=== PATIENT | male | born 1990 | race Native Hawaiian/Other Pacific Islander ===

== ENCOUNTER 2023-06-28 11:08 | Inpatient (IN) ==
[2023-06-28] MEDS ORDERED: ONDANSETRON INJ 2 MG/ML 2 ML VIAL IV STA (11:29)
[2023-06-28] MEDS ORDERED: CALCIUM GLUCONATE 10% 1,000 MG in NS X1 BAG IV STA (11:37)
[2023-06-28] MEDS ORDERED: DEXTROSE 50% 50 ML SYRINGE IV STA (11:39)
[2023-06-28] MEDS ORDERED: NovoLIN-R INSULIN PER UNIT CHARGE IV STA (11:39)
[2023-06-28] MEDS ORDERED: SODIUM BICARB 8.4% INJ 50 MEQ/50 ML SYR IV STA (11:40)
[2023-06-28 11:45] LABS: iSTAT Creatinine 15.8 mg/dl (0.6-1.3); iSTAT Hemoglobin 15.3 g/dl (14.0-18.0); iSTAT Ionized Calcium 1.09 mmol/l (1.12-1.32); iSTAT Potassium 6.3 mmol/L (3.3-5.0)
[2023-06-28] MEDS: SODIUM CHLORIDE 0.9% 1,000 ML IV SCH ×2 (11:59→12:27)
[2023-06-28 12:00] LABS: Basophils # (auto) 0.08 K/uL (0.00-0.20); Basophils % (auto) 0.6 %; Eosinophils # (auto) 0.15 K/uL (0.00-0.50); Eosinophils % (auto) 1.1 %; Hematocrit (blood only) 39.7 % (42.0-52.0); Hemoglobin 13.2 g/dl (14.0-18.0); Immature Granulocytes % (auto) 0.7 %; Lymphocytes # (auto) 1.97 K/uL (1.20-3.40); Lymphocytes % (auto) 13.9 %; Mean Corpuscular Hemoglobin 27.4 pg (25.0-34.0); Mean Corpuscular Hgb Conc 33.2 g/dL (32.0-36.0); Mean Corpuscular Volume 82.4 fL (80.0-100.0); Mean Platelet Volume 10.4 fL (9.4-12.4); Monocytes # (auto) 1.79 K/uL (0.11-0.59); Monocytes % (auto) 12.6 %; Neutrophils # (auto) 10.08 K/uL (1.40-6.50); Neutrophils % (auto) 71.1 %; Platelet Count 424 K/uL (130-400); RDW Coefficient of Variation 15.5 % (11.5-14.5); Red Blood Count 4.82 M/uL (4.70-6.10); White Blood Count 14.17 K/ul (4.8-10.8)
--- NOTE | 2023-06-28 12:06 | Electrocardiogram Report ---
Test Reason : Blood Pressure : / mmHG Vent. Rate : 097 BPM Atrial Rate : 097 BPM P-R Int : 154 ms QRS Dur : 090 ms QT Int : 376 ms P-R-T Axes : 035 038 064 degrees QTc Int : 477 ms Normal sinus rhythm Normal ECG When compared with ECG of 22-JUN-2022 17:15, No significant change was found Confirmed by Casper Live ([id number]) on 06/28/2023 12:06:22 PM Referred By: Confirmed By:Dima Live
[2023-06-28] MEDS ORDERED: fentaNYL citrate PF 100 MCG/2 ML VIAL ONE (12:18)
[2023-06-28] MEDS ORDERED: fentaNYL citrate PF 100 MCG/2 ML VIAL IV STA ×2 (12:20→12:34)
[2023-06-28 12:24] LABS: Albumin Globulin Ratio 0.6 (0.9-2); Albumin Level 3.5 gm/dl (3.4-5.0); BUN Creatinine Ratio 6.5 (10-20); Bilirubin,Total 1.3 mg/dl (0.2-1.0); Calcium 9.4 mg/dl (8.6-10.3); Creatinine Clr Calc Pharmacy 8.5 ml/min; Est GFR (African American) 5.1 ml/min; Est GFR (Non-African American) 4.4 ml/min; Magnesium 3.2 mg/dl (1.7-2.4); Potassium 6.2 mmol/L (3.5-5.1); Total Protein 9.5 gm/dl (6.0-8.3); Troponin I High Sensitivity 6.6 pg/ml (0-20)
[2023-06-28] MEDS ORDERED: SODIUM CHLORIDE 0.9% 1,000 ML IV SCH (12:30)
[2023-06-28 12:33] LABS: Thyroid Stimulating Hormone 1.642 uIu/ml (0.300-4.500)
[2023-06-28 12:42] LABS: INR 1.1 (0.9-1.1); Prothrombin Time 11.8 Seconds (9.0-12.0)
[2023-06-28] MEDS ORDERED: LACTATED RINGER'S 1,000 ML IV ONE (12:52)
[2023-06-28 13:19] LABS: Appearance Urine Cloudy (Clear); Bacteria Urine Automated Negative (Negative); Blood Urine Negative (Negative); Color Urine Dark Yellow; Glucose Urine UA Trace (Negative); Ketones Urine Trace (Negative); Leukocyte Esterase Urine 1+ (Negative); Nitrite Urine Positive (Negative); Protein Urine 1+ (Negative); Urobilinogen Urine Negative (Negative)
[2023-06-28 13:20] LABS: Bilirubin Urine 1+ (Negative)
[2023-06-28] MEDS ORDERED: PIPERACILLIN/TAZOBACTAM 4.5 GM/100 ML BAG IV STA (13:22)
[2023-06-28] MEDS ORDERED: DAPTOmycin 475 MG in SYRINGE 0 ML IV STA (13:23)
--- NOTE | 2023-06-28 13:47 | XRay Report ---
XR chest 1V portable HISTORY: weakness COMPARISON: Chest 04/07/2023. FINDINGS: No pneumothorax. No pleural effusions. A few small bibasilar linear densities which favor s ubsegmental atelectasis or scarring. Otherwise, the lungs are clear. The heart is normal in size. No evidence for pulmonary edema. IMPRESSION: No acute process. ACT 112: Negative or not required by law. Electronically signed by: Derek Solomon M.D. 06/28/2023 1:46 PM
--- NOTE | 2023-06-28 14:05 | Emergency Department Note ---
Impression & Plan Acute kidney failure, Crohn's disease, Enterocutaneous fistula, Acute dehydration, Hypovolemia with active loss of fluid ED Provider Note CHIEF COMPLAINT: Weakness, "not right mentally." HISTORY OF PRESENT ILLNESS: This 32-year-old male patient with an extensive past medical history including Crohn's disease, alcohol abuse, status post colectomy with an ostomy, enterocutaneous fistula, recent perforated gastric ulcer and prolonged stay subsequently in the SICU at [facility] with postoperative complication including intra-abdominal abscesses, presents to the emergency department with complaints of weakness and "not right mentally." The patient states he has not been urinating for the last 24 hours. He has had a decreased oral intake of fluids. He is on Suboxone daily and denies any other pain medications. Patient states he has follow-up appointments at [facility] tomorrow with the surgical team. Patient denies any syncopal episodes, vomiting and fever. He also states he is unable to give a detailed history due to the current "situation." REVIEW OF SYSTEMS: A review of systems was performed with positives and pertinent negatives listed in the history of present illness. 10 systems were reviewed and are otherwise negative. ALLERGIES: see below MEDICATIONS: see below PMH: see below SOCIAL HISTORY: see below DDx: Sepsis, intra-abdominal perforation, intra-abdominal abscess, bowel infarction, acute kidney injury, electrolyte abnormality, UTI among others. PHYSICAL EXAM: Vital signs reviewed. Noted to be markedly hypotensive with normal heart rate. General: Chronically ill-appearing 32-year-old male, in no significant distress. HEENT: No scleral icterus, PERRLA, neck supple. Moist mucous membranes Cardiovascular: Regular rate and rhythm, no extra sounds. Pulmonary: Clear to auscultation bilaterally, normal work of breathing. Abdomen: Soft, large mid abdominal wound draining to ostomy bag, separate ileostomy. Musculoskeletal: Atraumatic, no peripheral edema. Generalized atrophy of the bilateral lower extremities. Neurologic: Patient awake alert and oriented x 3, speech is clear. Skin: Warm, dry, no rash EXTERNAL medical records reviewed: Most recent discharge summary from [facility], ED visits dated 04/08 and 05/29/2023. EMERGENCY DEPARTMENT COURSE/MDM: This patient was evaluated and appeared to be critically ill, but in no distress. Patient is a large wound in the anterior abdomen with surrounding ostomy bag and separate ileostomy. Patient was awake and speaking clearly, asking for pain medications. We did explain that until his blood pressure improves we cannot offer pain medications. A right-sided EJ was established by myself for blood work and IV access as his peripheral veins are very difficult to access. IV access was obtained and IV fluids were initiated with good response for the blood pressure. I-STAT labs were obtained and the patient is noted to be hyperkalemic at 6.1, and acute renal failure with a creatinine of 15 on POC, hyponatremic at 110. The initial order of 2 L of normal saline solution was canceled after 1 L was administered. Nurses were advised to switch to lactated Ringer's for the second liter and maintenance fluids. A right femoral triple-lumen line was placed by myself, please see procedure note below. Patient's chest x-ray is fairly reassuring. EKG reveals a sinus rhythm at 97 bpm. I did speak with medical triage physician at [facility] who requested CT imaging of the abdomen and pelvis, but otherwise felt the patient could be managed at [facility]. The entry level marketing representative, Dr. Dave was consulted. Due to the patient's acute kidney injury, this was performed without contrast. It does not appear to be any acute surgical issue at this time with the exception of endoscopic stent migration. Records from [facility] were obtained and reviewed. After discussion between Dr. Dave and [facility], patient was admitted to our ICU at [facility]. PROCEDURE: Central Venous Catheter Indication: Hypotension Catheter type: Triple-lumen Location: Right femoral vein Verbal consent was obtained after the risks and benefits were explained, including but not limited to pneumothorax, hemothorax, vessel injury, bleeding, scarring, infection, pain, and bone/joint/nerve damage. At this time, the risks of the procedure are less than the risks of NOT performing the procedure. A time out was taken and the correct patient and site identified. The patient was placed in the supine position and the skin was prepped in the standard fashion with chlorhexidine and full sterile drapes applied. The proper landmarks were identified with ultrasound, anesthetized with 1% lidocaine without epinephrine, and the needle was inserted through the skin in the standard fashion. The needle was carefully advanced into blood vessel lumen under ultrasound guidance. The guidewire was placed uneventfully. The vessel is dilated and the catheter was placed. It was sutured into position. There was good blood return from all ports. The patient tolerated the procedure well and there were no complications. MONITORING: An order for cardiac monitoring was placed and the patient is noted to be in a normal sinus rhythm at 98 beats per minute. RADIOLOGY: Chest x-ray to my interpretation reveals no evidence of acute congestive heart failure or focal lung consolidation. Otherwise defer to radiology CT imaging of the abdomen pelvis per radiology: IMPRESSION: 1. Status post proctocolectomy with left lower quadrant ileostomy. No evidence for a bowel obstruction. Open wound with enterocutaneous fistula, as described above. 2. Endoscopic stent within the right mid abdomen, likely within the distal jejunum or proximal ileum. This raises the possibility of stent migration. Correlation with stent placement is recommended. 3. 4.5 x 1.1 cm lobulated perigastric density at site of free air on prior CT. This may reflect a tiny residual collection or scar. No drainable fluid collections. 4. Cholelithiasis. 5. Punctate left renal calculi. No ureteral calculi. No hydronephrosis. 6. Mildly enlarged abdominal lymph nodes, as described above. These are probably reactive but can be assessed on follow-up exams to ensure resolution. EKG: To my interpretation reveals normal sinus rhythm at 97 bpm. QTc of 477. Normal ST segments. No PVC, no PAC. DISPOSITION: Admission I have personally spent 60 minutes of critical care time in the direct management of this patient. This was a life/limb threatening event. This 60 minutes is in excess of all separately billable procedures. Past Med/Surg History Medical History Narcotic abuse Tobacco use Alcohol abuse Acute anxiety Depression Arthritis Crohn disease Surgical History History of wisdom tooth extraction History of knee surgery Bilateral knee scopes History of hernia surgery History of colon surgery Family History Other Diabetes Social History Smoking Status: Current every day smoker Tobacco Type: Cigarettes Cigarettes Per Day: 1/2 pack of cigarettes; Second Hand Exposure: Yes; Do You Dip or Chew Tobacco: No; Hx Alcohol Use: No Hx Substance Use: Yes Prescribed Medications: Former Misuse of Rx Meds Non- Prescribed Medications: Marijuana Last Used Substance Other:: 06/28/2023 Substance Use Type Other:: suboxone Preferred Language: Mongolian Communication Ability: Effective Sprayer Operator Required: No Beliefs That Will Affect Care: None Current Living Situation: Significant Other Other Information That Helps Us Care for You: No Feels Safe at Home: Yes Safety Concerns: Feels Safe At This Time Assistive Devices: Walker and Wheelchair Allergies Allergies Allergy/AdvReac Type Severity Reaction Status Date / Time Fish Containing Products Allergy Verified 06/29/23 09:35 fish derived Allergy Verified 06/29/23 09:35 fish oil Allergy Verified 06/29/23 09:35 shellfish derived Allergy Verified 06/29/23 09:35 adalimumab [From Humira] AdvReac Severe CONVULSIONS Verified 06/28/23 15:26 infliximab [From Remicade] AdvReac Severe CONVULSIONS Verified 06/28/23 15:26 methotrexate AdvReac Severe CONVULSIONS Verified 06/28/23 15:26 SEAFOOD AdvReac Intermediate BLOATING/GAS Uncoded 06/28/23 15:26 DISCOMFORT Home Meds Home Medications Medication Instructions Recorded Confirmed buprenorphine 8 mg-naloxone 2 mg 2 tab sublingual DAILY 06/22/22 06/28/23 sublingual tablet pantoprazole 40 mg tablet,delayed 40 mg PO AMHS 06/22/22 06/28/23 release diclofenac sodium 75 mg 75 mg PO BID 08/02/22 06/28/23 tablet,delayed release folic acid 1 mg tablet 1 mg PO QAM 08/02/22 06/28/23 mecobalamin (vitamin B12) 1,000 1,000 mcg PO QAM 08/02/22 06/28/23 mcg chewable tablet tadalafil 5 mg tablet 5 mg PO DAILY PRN Erectile 08/02/22 06/28/23 Dysfunction thiamine mononitrate (vit B1) 100 100 mg PO QAM 08/02/22 06/28/23 mg tablet gabapentin 300 mg capsule 300 mg PO TID 04/07/23 06/28/23 Results & Data (ED) Vital Signs Vital Signs - 24 hr 06/28/23 11:43 06/28/23 11:45 06/28/23 11:24 Temperature 36.5 C Temperature Source Oral Pulse Rate 97 H 92 H Pulse Rate from SpO2 Sensor Respiratory Rate 18 17 Blood Pressure Blood Pressure Mean Pulse Oximetry 97 97 Oxygen Delivery Method Room Air Room Air Sepsis Recent Fever Within 48 Hours No Sepsis New/Unexplained Change in Mental Status Yes Sepsis Action Taken by Nursing No Action Required 06/28/23 11:25 06/28/23 11:30 06/28/23 11:31 Temperature Temperature Source Pulse Rate 98 H 88 88 Pulse Rate from SpO2 Sensor 89 Respiratory Rate 18 17 15 Blood Pressure Blood Pressure Mean Pulse Oximetry 93 Oxygen Delivery Method Sepsis Recent Fever Within 48 Hours Sepsis New/Unexplained Change in Mental Status Sepsis Action Taken by Nursing 06/28/23 11:31 06/28/23 11:35 06/28/23 11:40 Temperature Temperature Source Pulse Rate 85 83 Pulse Rate from SpO2 Sensor 86 82 Respiratory Rate 16 16 Blood Pressure 70/37 L Blood Pressure Mean 49 Pulse Oximetry 92 96 Oxygen Delivery Method Sepsis Recent Fever Within 48 Hours Sepsis New/Unexplained Change in Mental Status Sepsis Action Taken by Nursing 06/28/23 11:41 06/28/23 11:41 06/28/23 11:45 Temperature Temperature Source Pulse Rate 85 89 Pulse Rate from SpO2 Sensor 85 90 Respiratory Rate 17 20 Blood Pressure 85/48 L Blood Pressure Mean 56 Pulse Oximetry 97 95 Oxygen Delivery Method Sepsis Recent Fever Within 48 Hours Sepsis New/Unexplained Change in Mental Status Sepsis Action Taken by Nursing 06/28/23 11:50 06/28/23 11:51 06/28/23 11:51 Temperature Temperature Source Pulse Rate 85 88 Pulse Rate from SpO2 Sensor 85 88 Respiratory Rate 18 23 Blood Pressure 92/42 L Blood Pressure Mean 67 Pulse Oximetry 96 97 Oxygen Delivery Method Sepsis Recent Fever Within 48 Hours Sepsis New/Unexplained Change in Mental Status Sepsis Action Taken by Nursing 06/28/23 11:55 06/28/23 11:59 06/28/23 11:59 Temperature Temperature Source Pulse Rate 94 H 99 H Pulse Rate from SpO2 Sensor 98 H Respiratory Rate 21 17 Blood Pressure 116/66 Blood Pressure Mean 76 Pulse Oximetry 93 93 Oxygen Delivery Method Sepsis Recent Fever Within 48 Hours Sepsis New/Unexplained Change in Mental Status Sepsis Action Taken by Nursing 06/28/23 12:00 06/28/23 12:00 06/28/23 12:05 Temperature Temperature Source Pulse Rate 96 H 96 H Pulse Rate from SpO2 Sensor 96 H 93 H Respiratory Rate 17 18 Blood Pressure 99/65 L Blood Pressure Mean 75 Pulse Oximetry 97 99 Oxygen Delivery Method Sepsis Recent Fever Within 48 Hours Sepsis New/Unexplained Change in Mental Status Sepsis Action Taken by Nursing 06/28/23 12:10 06/28/23 12:11 06/28/23 12:15 Temperature Temperature Source Pulse Rate 97 H 100 H 100 H Pulse Rate from SpO2 Sensor 100 H 94 H Respiratory Rate 18 18 19 Blood Pressure Blood Pressure Mean Pulse Oximetry 93 93 92 Oxygen Delivery Method Sepsis Recent Fever Within 48 Hours Sepsis New/Unexplained Change in Mental Status Sepsis Action Taken by Nursing 06/28/23 12:17 06/28/23 12:17 06/28/23 12:20 Temperature Temperature Source Pulse Rate 97 H 90 Pulse Rate from SpO2 Sensor 97 H 92 H Respiratory Rate 18 18 Blood Pressure 102/56 L Blood Pressure Mean 76 Pulse Oximetry 93 94 Oxygen Delivery Method Sepsis Recent Fever Within 48 Hours Sepsis New/Unexplained Change in Mental Status Sepsis Action Taken by Nursing 06/28/23 12:22 06/28/23 12:22 06/28/23 12:25 Temperature Temperature Source Pulse Rate 93 H 90 Pulse Rate from SpO2 Sensor 90 Respiratory Rate 20 20 Blood Pressure 109/40 L Blood Pressure Mean 60 Pulse Oximetry 94 97 Oxygen Delivery Method Sepsis Recent Fever Within 48 Hours Sepsis New/Unexplained Change in Mental Status Sepsis Action Taken by Nursing 06/28/23 12:30 06/28/23 12:30 06/28/23 12:35 Temperature Temperature Source Pulse Rate 90 95 H Pulse Rate from SpO2 Sensor 90 94 H Respiratory Rate 22 18 Blood Pressure 116/45 L Blood Pressure Mean 83 Pulse Oximetry 98 99 Oxygen Delivery Method Sepsis Recent Fever Within 48 Hours Sepsis New/Unexplained Change in Mental Status Sepsis Action Taken by Nursing 06/28/23 12:52 06/28/23 12:40 06/28/23 12:40 Temperature Temperature Source Pulse Rate 93 H 101 H Pulse Rate from SpO2 Sensor 99 H Respiratory Rate 20 Blood Pressure 118/78 Blood Pressure Mean 88 Pulse Oximetry 98 Oxygen Delivery Method Sepsis Recent Fever Within 48 Hours Sepsis New/Unexplained Change in Mental Status Sepsis Action Taken by Nursing 06/28/23 12:45 06/28/23 12:50 06/28/23 12:51 Temperature Temperature Source Pulse Rate 96 H 92 H 87 Pulse Rate from SpO2 Sensor 95 H 92 H 87 Respiratory Rate 22 14 18 Blood Pressure Blood Pressure Mean Pulse Oximetry 98 96 98 Oxygen Delivery Method Sepsis Recent Fever Within 48 Hours Sepsis New/Unexplained Change in Mental Status Sepsis Action Taken by Nursing 06/28/23 12:51 06/28/23 12:54 06/28/23 12:54 Temperature Temperature Source Pulse Rate 86 Pulse Rate from SpO2 Sensor 87 Respiratory Rate 15 Blood Pressure 87/67 L 85/52 L Blood Pressure Mean 69 57 Pulse Oximetry 97 Oxygen Delivery Method Sepsis Recent Fever Within 48 Hours Sepsis New/Unexplained Change in Mental Status Sepsis Action Taken by Nursing 06/28/23 12:55 06/28/23 13:00 06/28/23 13:01 Temperature Temperature Source Pulse Rate 92 H 85 Pulse Rate from SpO2 Sensor 90 86 Respiratory Rate 18 22 Blood Pressure 89/53 L Blood Pressure Mean 65 Pulse Oximetry 98 98 Oxygen Delivery Method Sepsis Recent Fever Within 48 Hours Sepsis New/Unexplained Change in Mental Status Sepsis Action Taken by Nursing 06/28/23 13:01 06/28/23 13:05 06/28/23 13:10 Temperature Temperature Source Pulse Rate 86 85 Pulse Rate from SpO2 Sensor 85 85 Respiratory Rate 18 18 Blood Pressure 101/54 L Blood Pressure Mean 66 Pulse Oximetry 97 95 Oxygen Delivery Method Sepsis Recent Fever Within 48 Hours Sepsis New/Unexplained Change in Mental Status Sepsis Action Taken by Nursing 06/28/23 13:10 06/28/23 13:15 06/28/23 13:20 Temperature Temperature Source Pulse Rate 87 87 86 Pulse Rate from SpO2 Sensor 85 87 87 Respiratory Rate 20 17 18 Blood Pressure Blood Pressure Mean Pulse Oximetry 96 96 97 Oxygen Delivery Method Sepsis Recent Fever Within 48 Hours Sepsis New/Unexplained Change in Mental Status Sepsis Action Taken by Nursing 06/28/23 13:21 06/28/23 13:21 06/28/23 13:25 Temperature Temperature Source Pulse Rate 86 85 Pulse Rate from SpO2 Sensor 87 85 Respiratory Rate 19 18 Blood Pressure 110/47 L Blood Pressure Mean 62 Pulse Oximetry 100 98 Oxygen Delivery Method Sepsis Recent Fever Within 48 Hours Sepsis New/Unexplained Change in Mental Status Sepsis Action Taken by Nursing 06/28/23 13:30 06/28/23 13:30 06/28/23 13:35 Temperature Temperature Source Pulse Rate 85 82 Pulse Rate from SpO2 Sensor 86 82 Respiratory Rate 17 18 Blood Pressure 112/57 L Blood Pressure Mean 77 Pulse Oximetry 99 97 Oxygen Delivery Method Sepsis Recent Fever Within 48 Hours Sepsis New/Unexplained Change in Mental Status Sepsis Action Taken by Nursing 06/28/23 13:40 06/28/23 13:40 06/28/23 13:45 Temperature Temperature Source Pulse Rate 87 84 Pulse Rate from SpO2 Sensor 87 84 Respiratory Rate 22 17 Blood Pressure 111/59 L Blood Pressure Mean 70 Pulse Oximetry 96 94 Oxygen Delivery Method Sepsis Recent Fever Within 48 Hours Sepsis New/Unexplained Change in Mental Status Sepsis Action Taken by Nursing 06/28/23 14:02 06/28/23 14:02 Temperature Temperature Source Pulse Rate 83 Pulse Rate from SpO2 Sensor 82 Respiratory Rate 21 Blood Pressure 91/49 L Blood Pressure Mean 65 Pulse Oximetry 92 Oxygen Delivery Method Sepsis Recent Fever Within 48 Hours Sepsis New/Unexplained Change in Mental Status Sepsis Action Taken by Assisted Medications Current Medication List: was personally reviewed by me Laboratory Data Attestation: I reviewed the patient's lab results. 07/01/23 03:45 07/01/23 03:45 Lab Results 06/28/23 06/28/23 06/28/23 Range/Units 11:30 11:33 11:35 WBC 14.17 H (4.8-10.8) K/ul RBC 4.82 (4.70-6.10) M/uL Hgb 13.2 L (14.0-18.0) g/dl POC Hgb 15.3 (14.0-18.0) g/dl Hct 39.7 L (42.0-52.0) % POC Hct 45 (42-52) % MCV 82.4 (80.0-100.0) fL MCH 27.4 (25.0-34.0) pg MCHC 33.2 (32.0-36.0) g/dL RDW Std Deviation 47.0 H (36.4-46.3) fL RDW Coeff of Mindi 15.5 H (11.5-14.5) % Plt Count 424 H (130-400) K/uL MPV 10.4 (9.4-12.4) fL Immature Gran % (Auto) 0.7 % Neut % (Auto) 71.1 % Lymph % (Auto) 13.9 % [place] % (Auto) 12.6 % Eos % (Auto) 1.1 % Baso % (Auto) 0.6 % Neut # (Auto) 10.08 H (1.40-6.50) K/uL Lymph # (Auto) 1.97 (1.20-3.40) K/uL [place] # (Auto) 1.79 H (0.11-0.59) K/uL Eos # (Auto) 0.15 (0.00-0.50) K/uL Baso # (Auto) 0.08 (0.00-0.20) K/uL Immature Gran # (Auto) 0.10 (0.01-0.20) K/uL PT 11.8 (9.0-12.0) Seconds INR 1.1 (0.9-1.1) POC Sodium 110 L* (135-144) mmol/L Sodium 110 L* (136-145) mmol/L POC Potassium 6.3 H* (3.3-5.0) mmol/L Potassium 6.2 H* (3.5-5.1) mmol/L POC Chloride 85 L (101-112) mmol/L Chloride 78 L (98-107) mmol/L Carbon Dioxide 15 L (21-32) mmol/L POC Total CO2 17 L (24-31) mmol/L Anion Gap 17 H (3-11) POC Anion Gap 16.0 (16-25) mmol/L POC BUN 100 H (7-18) mg/dl BUN 86 H (6-23) mg/dl Creatinine 13.14 H* (0.6-1.4) mg/dl POC Creatinine 15.8 H* (0.6-1.3) mg/dl Est Cr Clr Drug Dosing 8.5 ml/min Est GFR ( Amer) 5.1 ml/min Est GFR (Non-Af Amer) 4.4 ml/min BUN/Creatinine Ratio 6.5 L (10-20) Glucose 107 H (70-99(Fasting)) mg/dl POC Glucose (70-99) mg/dl POC Glucose (other) 112 H (70-99) mg/dl Lactate 1.8 (0.4-2.0) mmol/L Calcium 9.4 (8.6-10.3) mg/dl POC Ioniz Calcium Rula 1.09 L (1.12-1.32) mmol/l Magnesium 3.2 H (1.7-2.4) mg/dl Total Bilirubin 1.3 H (0.2-1.0) mg/dl Direct Bilirubin (0-0.2) mg/dl AST 13 (13-39) U/L ALT 12 (7-52) U/L Alkaline Phosphatase 408 H (34-104) U/L Troponin I High Sens 6.6 (0-20) pg/ml Total Protein 9.5 H (6.0-8.3) gm/dl Albumin 3.5 (3.4-5.0) gm/dl Globulin 6.0 H (2.5-4.0) gm/dl Albumin/Globulin Ratio 0.6 L (0.9-2) TSH 1.642 (0.300-4.500) uIu/ml Urine Color Urine Appearance (Clear) Urine pH (4.5-7.5) Ur Specific [place] (1.000-1.030) Urine Protein (Negative) Urine Glucose (UA) (Negative) Urine Ketones (Negative) Urine Blood (Negative) Urine Nitrite (Negative) Urine Bilirubin (Negative) Urine Urobilinogen (Negative) Ur Leukocyte Esterase (Negative) Urine WBC (Auto) (0-5) /hpf Urine RBC (Auto) (0-4) /hpf U Hyaline Cast (Auto) (0-5) /lpf U Epithel Cells (Auto) (0-5) /lpf Urine Bacteria (Auto) (Negative) SARS-CoV-2, RNA, NAAT NEGATIVE (NEGATIVE) Blood Type Antibody Screen 06/28/23 06/28/23 06/28/23 Range/Units 12:52 12:58 13:25 WBC (4.8-10.8) K/ul RBC (4.70-6.10) M/uL Hgb (14.0-18.0) g/dl POC Hgb (14.0-18.0) g/dl Hct (42.0-52.0) % POC Hct (42-52) % MCV (80.0-100.0) fL MCH (25.0-34.0) pg MCHC (32.0-36.0) g/dL RDW Std Deviation (36.4-46.3) fL RDW Coeff of Mindi (11.5-14.5) % Plt Count (130-400) K/uL MPV (9.4-12.4) fL Immature Gran % (Auto) % Neut % (Auto) % Lymph % (Auto) % [place] % (Auto) % Eos % (Auto) % Baso % (Auto) % Neut # (Auto) (1.40-6.50) K/uL Lymph # (Auto) (1.20-3.40) K/uL [place] # (Auto) (0.11-0.59) K/uL Eos # (Auto) (0.00-0.50) K/uL Baso # (Auto) (0.00-0.20) K/uL Immature Gran # (Auto) (0.01-0.20) K/uL PT (9.0-12.0) Seconds INR (0.9-1.1) POC Sodium (135-144) mmol/L Sodium 120 L D (136-145) mmol/L POC Potassium (3.3-5.0) mmol/L Potassium 5.1 (3.5-5.1) mmol/L POC Chloride (101-112) mmol/L Chloride 92 L (98-107) mmol/L Carbon Dioxide 15 L (21-32) mmol/L POC Total CO2 (24-31) mmol/L Anion Gap 13 H (3-11) POC Anion Gap (16-25) mmol/L POC BUN (7-18) mg/dl BUN 70 H (6-23) mg/dl Creatinine 9.64 H* D (0.6-1.4) mg/dl POC Creatinine (0.6-1.3) mg/dl Est Cr Clr Drug Dosing 11.6 ml/min Est GFR ( Amer) 7.4 ml/min Est GFR (Non-Af Amer) 6.4 ml/min BUN/Creatinine Ratio 7.3 L (10-20) Glucose 32 L* (70-99(Fasting)) mg/dl POC Glucose (70-99) mg/dl POC Glucose (other) (70-99) mg/dl Lactate (0.4-2.0) mmol/L Calcium 7.7 L (8.6-10.3) mg/dl POC Ioniz Calcium Rula (1.12-1.32) mmol/l Magnesium 2.1 (1.7-2.4) mg/dl Total Bilirubin 0.9 (0.2-1.0) mg/dl Direct Bilirubin 0.4 H (0-0.2) mg/dl AST 9 L (13-39) U/L ALT 6 L (7-52) U/L Alkaline Phosphatase 227 H (34-104) U/L Troponin I High Sens (0-20) pg/ml Total Protein 5.2 L D (6.0-8.3) gm/dl Albumin 2.0 L (3.4-5.0) gm/dl Globulin 3.2 (2.5-4.0) gm/dl Albumin/Globulin Ratio 0.6 L (0.9-2) TSH (0.300-4.500) uIu/ml Urine Color Dark Yellow Urine Appearance Cloudy A (Clear) Urine pH 5.0 (4.5-7.5) Ur Specific [place] 1.020 (1.000-1.030) Urine Protein 1+ H (Negative) Urine Glucose (UA) Trace H (Negative) Urine Ketones Trace H (Negative) Urine Blood Negative (Negative) Urine Nitrite Positive A (Negative) Urine Bilirubin 1+ H (Negative) Urine Urobilinogen Negative (Negative) Ur Leukocyte Esterase 1+ H (Negative) Urine WBC (Auto) 1-5 (0-5) /hpf Urine RBC (Auto) 5-10 H (0-4) /hpf U Hyaline Cast (Auto) 1-5 (0-5) /lpf U Epithel Cells (Auto) 10-20 H (0-5) /lpf Urine Bacteria (Auto) Negative (Negative) SARS-CoV-2, RNA, NAAT (NEGATIVE) Blood Type A Positive Antibody Screen NEGATIVE 06/28/23 06/28/23 Range/Units 14:20 14:30 WBC (4.8-10.8) K/ul RBC (4.70-6.10) M/uL Hgb (14.0-18.0) g/dl POC Hgb (14.0-18.0) g/dl Hct (42.0-52.0) % POC Hct (42-52) % MCV (80.0-100.0) fL MCH (25.0-34.0) pg MCHC (32.0-36.0) g/dL RDW Std Deviation (36.4-46.3) fL RDW Coeff of Mindi (11.5-14.5) % Plt Count (130-400) K/uL MPV (9.4-12.4) fL Immature Gran % (Auto) % Neut % (Auto) % Lymph % (Auto) % [place] % (Auto) % Eos % (Auto) % Baso % (Auto) % Neut # (Auto) (1.40-6.50) K/uL Lymph # (Auto) (1.20-3.40) K/uL [place] # (Auto) (0.11-0.59) K/uL Eos # (Auto) (0.00-0.50) K/uL Baso # (Auto) (0.00-0.20) K/uL Immature Gran # (Auto) (0.01-0.20) K/uL PT (9.0-12.0) Seconds INR (0.9-1.1) POC Sodium (135-144) mmol/L Sodium 116 L* (136-145) mmol/L POC Potassium (3.3-5.0) mmol/L Potassium 5.1 (3.5-5.1) mmol/L POC Chloride (101-112) mmol/L Chloride 88 L (98-107) mmol/L Carbon Dioxide 17 L (21-32) mmol/L POC Total CO2 (24-31) mmol/L Anion Gap 11 (3-11) POC Anion Gap (16-25) mmol/L POC BUN (7-18) mg/dl BUN 77 H (6-23) mg/dl Creatinine 11.30 H* D (0.6-1.4) mg/dl POC Creatinine (0.6-1.3) mg/dl Est Cr Clr Drug Dosing 9.9 ml/min Est GFR ( Amer) 6.1 ml/min Est GFR (Non-Af Amer) 5.2 ml/min BUN/Creatinine Ratio 6.8 L (10-20) Glucose 78 (70-99(Fasting)) mg/dl POC Glucose 90 (70-99) mg/dl POC Glucose (other) (70-99) mg/dl Lactate (0.4-2.0) mmol/L Calcium 8.3 L (8.6-10.3) mg/dl POC Ioniz Calcium Rula (1.12-1.32) mmol/l Magnesium (1.7-2.4) mg/dl Total Bilirubin (0.2-1.0) mg/dl Direct Bilirubin (0-0.2) mg/dl AST (13-39) U/L ALT (7-52) U/L Alkaline Phosphatase (34-104) U/L Troponin I High Sens (0-20) pg/ml Total Protein (6.0-8.3) gm/dl Albumin (3.4-5.0) gm/dl Globulin (2.5-4.0) gm/dl Albumin/Globulin Ratio (0.9-2) TSH (0.300-4.500) uIu/ml Urine Color Urine Appearance (Clear) Urine pH (4.5-7.5) Ur Specific [place] (1.000-1.030) Urine Protein (Negative) Urine Glucose (UA) (Negative) Urine Ketones (Negative) Urine Blood (Negative) Urine Nitrite (Negative) Urine Bilirubin (Negative) Urine Urobilinogen (Negative) Ur Leukocyte Esterase (Negative) Urine WBC (Auto) (0-5) /hpf Urine RBC (Auto) (0-4) /hpf U Hyaline Cast (Auto) (0-5) /lpf U Epithel Cells (Auto) (0-5) /lpf Urine Bacteria (Auto) (Negative) SARS-CoV-2, RNA, NAAT (NEGATIVE) Blood Type Antibody Screen Administered Medications Buprenorphine/Naloxone (Buprenorphine/Naloxone 8/2 Mg Tab) 2 tab SL DAILY [facility]NA Stop: 07/29/23 08:59 Last Admin: 06/30/23 09:55 Dose: 2 tab Documented By: Admin: 06/29/23 09:02 Dose: 2 tab Documented By: ABDULKADIR Cyanocobalamin (Cyanocobalamin (B-12) 500 Mcg Tablet) 1,000 mcg PO DAILY CHYNA Stop: 07/29/23 08:59 Last Admin: 06/30/23 09:53 Dose: 1,000 mcg Documented By: Admin: 06/29/23 09:00 Dose: 1,000 mcg Documented By: ABDULKADIR Folic Acid (Folic Acid 1 Mg Tab) 1 mg PO DAILY CHYNA Stop: 07/29/23 08:59 Last Admin: 06/30/23 09:53 Dose: 1 mg Documented By: Admin: 06/29/23 09:00 Dose: 1 mg Documented By: ABDULKADIR Heparin Sodium (Porcine) (Heparin Sod 5,000 Unit/0.5 Ml Vial) 5,000 units SQ Q8 [facility] Stop: 07/28/23 21:59 Last Admin: 07/01/23 05:30 Dose: Not Given Documented By: Admin: 06/30/23 22:10 Dose: 5,000 units Documented By: Admin: 06/30/23 14:58 Dose: 5,000 units Documented By: Admin: 06/30/23 06:42 Dose: 5,000 units Documented By: Admin: 06/29/23 22:25 Dose: 5,000 units Documented By: Admin: 06/29/23 14:30 Dose: Not Given Documented By: Admin: 06/29/23 05:56 Dose: 5,000 units Documented By: Admin: 06/28/23 21:09 Dose: 5,000 units Documented By: ESME Hydromorphone HCl (Hydromorphone Inj 0.5 Mg/0.5 Ml Syr) 0.5 mg IV Q4H PRN PRN Reason: Severe Pain (Scale 7, 8, 9,10) Stop: 07/14/23 08:33 Last Admin: 07/01/23 03:54 Dose: 0.5 mg Documented By: Admin: 06/30/23 23:46 Dose: 0.5 mg Documented By: Admin: 06/30/23 19:39 Dose: 0.5 mg Documented By: UMANG Norepinephrine Bitartrate (Levophed/D5w) 4 mg in 250 mls @ 5.603 mls/hr IV .Q24H [facility]NA; Protocol Stop: 07/28/23 18:29 Last Titration: 06/30/23 19:05 Dose: 0.02 mcg/kg/min, 5.6 mls/hr Documented By: ANN Co-signed By: UMANG Titration: 06/30/23 16:03 Dose: 0.02 mcg/kg/min, 5.6 mls/hr Documented By: Titration: 06/30/23 14:43 Dose: 0 mcg/kg/min, 0 mls/hr Documented By: Admin: 06/30/23 13:21 Dose: Not Given Documented By: Titration: 06/30/23 13:14 Dose: Infused Documented By: ANN Co-signed By: SISSY Admin: 06/30/23 13:14 Dose: 0.02 mcg/kg/min, 5.6 mls/hr Documented By: ANN Co-signed By: SISSY Titration: 06/30/23 12:21 Dose: 0.02 mcg/kg/min, 5.6 mls/hr Documented By: Titration: 06/30/23 09:30 Dose: 0.04 mcg/kg/min, 11.2 mls/hr Documented By: Titration: 06/30/23 08:30 Dose: 0.06 mcg/kg/min, 16.8 mls/hr Documented By: Admin: 06/30/23 07:39 Dose: Not Given Documented By: Admin: 06/30/23 00:36 Dose: 0.08 mcg/kg/min, 22.4 mls/hr Documented By: UMANG Co-signed By: ANTONELLA Titration: 06/29/23 23:16 Dose: Infused Documented By: UMANG Co-signed By: HFS Titration: 06/29/23 18:59 Dose: 0.08 mcg/kg/min, 22.4 mls/hr Documented By: UMANG Co-signed By: ABDULKADIR Titration: 06/29/23 17:38 Dose: 0.08 mcg/kg/min, 22 mls/hr Documented By: Admin: 06/29/23 17:20 Dose: Not Given Documented By: Titration: 06/29/23 17:07 Dose: 0.1 mcg/kg/min, 27.5 mls/hr Documented By: Titration: 06/29/23 16:47 Dose: 0.13 mcg/kg/min, 35.8 mls/hr Documented By: Admin: 06/29/23 14:24 Dose: 0.15 mcg/kg/min, 41.3 mls/hr Documented By: ABDULKADIR Co-signed By: JULIA Titration: 06/29/23 14:24 Dose: Infused Documented By: ABDULKADIR Co-signed By: JULIA Admin: 06/29/23 10:37 Dose: Not Given Documented By: Admin: 06/29/23 10:37 Dose: Not Given Documented By: Titration: 06/29/23 08:43 Dose: 0.15 mcg/kg/min, 41.3 mls/hr Documented By: Admin: 06/29/23 08:21 Dose: 0.13 mcg/kg/min, 35.8 mls/hr Documented By: ABDULKADIR Co-signed By: JULIA Titration: 06/29/23 08:21 Dose: Infused Documented By: ABDULKADIR Co-signed By: JULIA Titration: 06/29/23 07:04 Dose: 0.13 mcg/kg/min, 35.8 mls/hr Documented By: ABDULKADIR Co-signed By: MNAd Admin: 06/29/23 06:33 Dose: Not Given Documented By: Titration: 06/29/23 03:24 Dose: 0.13 mcg/kg/min, 35.8 mls/hr Documented By: Admin: 06/29/23 01:51 Dose: 0.15 mcg/kg/min, 41.3 mls/hr Documented By: ESME Co-signed By: SG Titration: 06/29/23 01:51 Dose: Infused Documented By: ESME Co-signed By: SG Titration: 06/29/23 01:34 Dose: 0.15 mcg/kg/min, 41.3 mls/hr Documented By: Titration: 06/29/23 00:33 Dose: 0.17 mcg/kg/min, 46.8 mls/hr Documented By: Titration: 06/29/23 00:15 Dose: 0.15 mcg/kg/min, 41.3 mls/hr Documented By: Titration: 06/28/23 23:28 Dose: 0.13 mcg/kg/min, 35.8 mls/hr Documented By: Titration: 06/28/23 23:11 Dose: 0.15 mcg/kg/min, 41.3 mls/hr Documented By: Titration: 06/28/23 22:50 Dose: 0.13 mcg/kg/min, 35.8 mls/hr Documented By: Titration: 06/28/23 22:32 Dose: 0.11 mcg/kg/min, 30.3 mls/hr Documented By: Titration: 06/28/23 19:40 Dose: 0.09 mcg/kg/min, 24.8 mls/hr Documented By: Titration: 06/28/23 19:25 Dose: 0.07 mcg/kg/min, 19.3 mls/hr Documented By: Titration: 06/28/23 19:10 Dose: 0.05 mcg/kg/min, 13.8 mls/hr Documented By: SG Co-signed By: BRITTANI Admin: 06/28/23 18:27 Dose: 0.05 mcg/kg/min, 13.8 mls/hr Documented By: BRITTANI Co-signed By: JOEL Magnesium Sulfate/Dextrose (Magnesium Sulfate / D5w) 1 gm in 100 mls @ 50 mls/hr IV Q2H [facility] Stop: 07/01/23 12:44 Last Admin: 07/01/23 05:29 Dose: 50 mls/hr Documented By: UMANG Potassium Chloride (K Sid / Wtr) 20 meq in 100 mls @ 50 mls/hr IV Q2H [facility] Stop: 07/01/23 09:14 Last Admin: 07/01/23 05:29 Dose: 50 mls/hr Documented By: UMANG Melatonin (Melatonin 3 Mg Tab) 3 mg PO HS PRN PRN Reason: Sleep Stop: 07/29/23 23:31 Last Admin: 06/30/23 22:10 Dose: 3 mg Documented By: Admin: 06/30/23 00:37 Dose: 3 mg Documented By: UMANG Miscellaneous (Remove Nicoderm Patch) 1 each N/A DAILY@0859 [facility] Stop: 07/29/23 08:58 Last Admin: 06/30/23 09:53 Dose: 1 each Documented By: Admin: 06/29/23 09:01 Dose: 1 each Documented By: ABDULKADIR Nicotine (Nicotine 21 Mg/24 Hr Tdsy) 21 mg TD QAM [facility] Stop: 07/28/23 16:37 Last Admin: 06/30/23 09:54 Dose: 21 mg Documented By: Admin: 06/29/23 09:00 Dose: 21 mg Documented By: Admin: 06/28/23 18:16 Dose: 21 mg Documented By: BRITTANI Oxycodone HCl (Oxycodone Hcl Ir 5 Mg Tab (Immediate Release)) 5 mg PO Q6H PRN PRN Reason: Severe Pain (Scale 7, 8, 9,10) Stop: 07/14/23 18:21 Last Admin: 07/01/23 02:40 Dose: 5 mg Documented By: UMANG Pantoprazole Sodium (Pantoprazole 40 Mg Tab) 40 mg PO AMHS [facility] Stop: 07/28/23 20:59 Last Admin: 06/30/23 22:10 Dose: 40 mg Documented By: Admin: 06/30/23 09:54 Dose: 40 mg Documented By: Admin: 06/29/23 21:56 Dose: 40 mg Documented By: Admin: 06/29/23 09:00 Dose: 40 mg Documented By: Admin: 06/28/23 22:16 Dose: Not Given Documented By: ESME Thiamine HCl (Thiamine Hcl 100 Mg Tab) 100 mg PO DAILY CHYNA Stop: 07/29/23 08:59 Last Admin: 06/30/23 09:54 Dose: 100 mg Documented By: Admin: 06/29/23 09:00 Dose: 100 mg Documented By: ABDULKADIR Discontinued Medications Dextrose (Dextrose 50% 50 Ml Syringe) 50 ml IV NOW STA Stop: 06/28/23 11:40 Last Admin: 06/28/23 12:00 Dose: 50 ml Documented By: JACOBY Dextrose (Dextrose 50% 50 Ml Syringe) 50 ml IV NOW ONE Stop: 06/28/23 14:17 Last Admin: 06/28/23 14:57 Dose: Not Given Documented By: JACOBY Fentanyl Citrate (Fentanyl Citrate Pf 100 Mcg/2 Ml Vial) Confirm Administered Dose 100 mcg .ROUTE .STK-MED ONE Stop: 06/28/23 12:19 Last Admin: 06/28/23 12:24 Dose: Not Given Documented By: JACOBY Fentanyl Citrate (Fentanyl Citrate Pf 100 Mcg/2 Ml Vial) 50 mcg IV NOW STA Stop: 06/28/23 12:21 Last Admin: 06/28/23 12:24 Dose: 50 mcg Documented By: JACOBY Fentanyl Citrate (Fentanyl Citrate Pf 100 Mcg/2 Ml Vial) 50 mcg IV NOW STA Stop: 06/28/23 12:35 Last Admin: 06/28/23 12:35 Dose: 50 mcg Documented By: JACOBY Hydromorphone HCl (Hydromorphone Inj 1 Mg/Ml Syringe) 1 mg IV NOW STA Stop: 06/28/23 14:31 Last Admin: 06/28/23 17:09 Dose: Not Given Documented By: BRITTANI Hydromorphone HCl (Hydromorphone Inj 0.5 Mg/0.5 Ml Syr) 0.5 mg IV Q6H PRN PRN Reason: Pain Stop: 07/12/23 16:37 Last Admin: 06/29/23 06:11 Dose: 0.5 mg Documented By: Admin: 06/28/23 19:33 Dose: 0.5 mg Documented By: ESME Hydromorphone HCl (Hydromorphone Inj 0.5 Mg/0.5 Ml Syr) 0.5 mg IV Q4H PRN PRN Reason: Pain Stop: 07/12/23 16:37 Last Admin: 06/30/23 04:03 Dose: 0.5 mg Documented By: Admin: 06/29/23 22:23 Dose: 0.5 mg Documented By: Admin: 06/29/23 18:16 Dose: 0.5 mg Documented By: Admin: 06/29/23 14:24 Dose: 0.5 mg Documented By: Admin: 06/29/23 10:11 Dose: 0.5 mg Documented By: ABDULKADIR Hydromorphone HCl (Hydromorphone Inj 1 Mg/Ml Syringe) 1 mg IV NOW STA Stop: 06/29/23 13:29 Last Admin: 06/29/23 13:31 Dose: 1 mg Documented By: ABDULKADIR Hydromorphone HCl (Hydromorphone Inj 0.5 Mg/0.5 Ml Syr) 0.5 mg IV Q8H PRN PRN Reason: Pain Stop: 07/13/23 08:54 Last Admin: 06/30/23 14:56 Dose: 0.5 mg Documented By: SISSY Hydromorphone HCl (Hydromorphone Inj 0.5 Mg/0.5 Ml Syr) 0.5 mg IV NOW STA Stop: 06/30/23 09:05 Last Admin: 06/30/23 09:16 Dose: 0.5 mg Documented By: ANN Sodium Chloride (Nss) 1,000 mls @ 999 mls/hr IV .Q1H1M [facility] Stop: 06/28/23 13:30 Last Admin: 06/28/23 12:27 Dose: Not Given Documented By: Infusion: 06/28/23 12:14 Dose: Infused Documented By: Admin: 06/28/23 11:59 Dose: 999 mls/hr Documented By: JACOBY Calcium Gluconate 1,000 mg/ (Sodium Chloride) 60 mls @ 240 mls/hr IV NOW STA Stop: 06/28/23 11:51 Last Infusion: 06/28/23 12:14 Dose: Infused Documented By: Admin: 06/28/23 12:00 Dose: 240 mls/hr Documented By: JACOBY Sodium Chloride (Nss) 1,000 mls @ 125 mls/hr IV .Q8H [facility] Stop: 07/28/23 12:29 Last Infusion: 06/29/23 01:17 Dose: Infused Documented By: Infusion: 06/28/23 14:59 Dose: 0 mls/hr Documented By: Admin: 06/28/23 12:24 Dose: 125 mls/hr Documented By: JACOBY Lactated Ringer's (Lr) 1,000 mls @ 999 mls/hr IV .Q1H1M ONE Stop: 06/28/23 13:52 Last Infusion: 06/28/23 14:06 Dose: Infused Documented By: Admin: 06/28/23 13:07 Dose: 999 mls/hr Documented By: JACOBY Piperacillin Sod/Tazobactam Sod (Zosyn) 4.5 gm in 100 mls @ 200 mls/hr IV NOW STA Stop: 06/28/23 13:51 Last Infusion: 06/28/23 14:59 Dose: Infused Documented By: Admin: 06/28/23 13:41 Dose: 200 mls/hr Documented By: JACOBY Daptomycin 475 mg/ Syringe 9.5 mls @ 4.75 mls/min IV NOW STA; Protocol Stop: 06/28/23 13:24 Last Admin: 06/28/23 13:44 Dose: 4.75 mls/min Documented By: JACOBY Desmopressin Acetate 2 mcg/ (Sodium Chloride) 50.5 mls @ 100 mls/hr IV ONE ONE Stop: 06/28/23 15:13 Last Infusion: 06/28/23 17:13 Dose: Infused Documented By: Admin: 06/28/23 15:28 Dose: 100 mls/hr Documented By: NANCI Piperacillin Sod/Tazobactam (Sod 4.5 gm/ Dextrose) 100 mls @ 25 mls/hr IV Q12H [facility]; Protocol Stop: 07/08/23 21:44 Last Infusion: 06/30/23 02:01 Dose: Infused Documented By: Admin: 06/29/23 22:01 Dose: 25 mls/hr Documented By: Infusion: 06/29/23 12:33 Dose: Infused Documented By: Admin: 06/29/23 09:02 Dose: 25 mls/hr Documented By: Infusion: 06/29/23 00:15 Dose: Infused Documented By: Admin: 06/28/23 21:06 Dose: 25 mls/hr Documented By: ESME Desmopressin Acetate 2 mcg/ (Sodium Chloride) 50.5 mls @ 100 mls/hr IV Q8H [facility] Stop: 07/28/23 23:29 Last Infusion: 06/29/23 08:59 Dose: Infused Documented By: Admin: 06/29/23 08:21 Dose: 100 mls/hr Documented By: Infusion: 06/28/23 22:51 Dose: Infused Documented By: Admin: 06/28/23 22:22 Dose: 100 mls/hr Documented By: ESME Albumin Human (Albumin 25%) 25 gm in 100 mls @ 50 mls/hr IV ONE ONE Stop: 06/28/23 21:43 Last Infusion: 06/28/23 21:52 Dose: Infused Documented By: Admin: 06/28/23 19:57 Dose: 50 mls/hr Documented By: ESME Albumin Human (Albumin 25%) 25 gm in 100 mls @ 50 mls/hr IV Q2H [facility] Stop: 06/29/23 14:14 Last Infusion: 06/29/23 13:29 Dose: Infused Documented By: Admin: 06/29/23 11:33 Dose: 50 mls/hr Documented By: Infusion: 06/29/23 11:33 Dose: Infused Documented By: Admin: 06/29/23 10:22 Dose: 50 mls/hr Documented By: ABDULKADIR Potassium Chloride (K Sid / Wtr) 10 meq in 100 mls @ 100 mls/hr IV Q1H [facility] Stop: 06/30/23 08:29 Last Infusion: 06/30/23 10:09 Dose: Infused Documented By: Admin: 06/30/23 08:42 Dose: 100 mls/hr Documented By: Infusion: 06/30/23 08:36 Dose: Infused Documented By: Padmini Admin: 06/30/23 07:36 Dose: 100 mls/hr Documented By: Infusion: 06/30/23 07:28 Dose: Infused Documented By: [facility] Admin: 06/30/23 06:28 Dose: 100 mls/hr Documented By: KARIN Magnesium Sulfate/Dextrose (Magnesium Sulfate / D5w) 1 gm in 100 mls @ 50 mls/hr IV Q2H [facility] Stop: 06/30/23 09:29 Last Infusion: 06/30/23 10:09 Dose: Infused Documented By: Admin: 06/30/23 08:20 Dose: 50 mls/hr Documented By: Infusion: 06/30/23 08:20 Dose: Infused Documented By: [facility] Admin: 06/30/23 06:29 Dose: 50 mls/hr Documented By: KARIN Sodium Chloride (Nss) 1,000 mls @ 999 mls/hr IV .Q1H1M [facility] Stop: 06/30/23 11:00 Last Infusion: 06/30/23 10:49 Dose: Infused Documented By: Admin: 06/30/23 09:52 Dose: 999 mls/hr Documented By: Infusion: 06/30/23 09:51 Dose: Infused Documented By: [facility] Admin: 06/30/23 08:50 Dose: 999 mls/hr Documented By: ANN Lactated Ringer's (Lr) 1,000 mls @ 999 mls/hr IV .Q1H1M ONE Stop: 06/30/23 15:04 Last Infusion: 06/30/23 15:23 Dose: Infused Documented By: [facility] Admin: 06/30/23 14:14 Dose: 999 mls/hr Documented By: SISSY Insulin Human Regular (Novolin-R Insulin Per Unit Charge) 10 units IV NOW STA Stop: 06/28/23 11:40 Last Admin: 06/28/23 11:59 Dose: 10 units Documented By: JACOBY Co-signed By: JULIA(2) Miscellaneous (Icu Protocol For Hyperglycemia) 1 each N/A ACHS [facility] Stop: 06/30/23 16:37 Last Admin: 06/30/23 16:35 Dose: Not Given Documented By: Admin: 06/30/23 11:55 Dose: Not Given Documented By: Admin: 06/30/23 07:39 Dose: Not Given Documented By: Admin: 06/29/23 23:35 Dose: 1 each Documented By: Admin: 06/29/23 18:19 Dose: 1 each Documented By: Admin: 06/29/23 11:33 Dose: 1 each Documented By: Admin: 06/29/23 09:01 Dose: 1 each Documented By: Admin: 06/28/23 19:37 Dose: Not Given Documented By: Admin: 06/28/23 18:22 Dose: Not Given Documented By: BRITTANI Ondansetron HCl (Ondansetron Inj 2 Mg/Ml 2 Ml Vial) 4 mg IV NOW STA Stop: 06/28/23 11:30 Last Admin: 06/28/23 13:07 Dose: Not Given Documented By: JACOBY Oxycodone HCl (Oxycodone Hcl Ir 5 Mg Tab (Immediate Release)) 5 mg PO NOW STA Stop: 06/30/23 18:03 Last Admin: 06/30/23 18:13 Dose: 5 mg Documented By: ANN Sodium Bicarbonate (Sodium Bicarb 8.4% Inj 50 Meq/50 Ml Syr) 50 meq IV NOW STA Stop: 06/28/23 11:41 Last Admin: 06/28/23 12:00 Dose: 50 meq Documented By: JACOBY Imaging Data Radiologist's Impression: Chest X-Ray 06/28/23 11:29 XR chest 1V portable HISTORY: weakness COMPARISON: Chest 04/07/2023. FINDINGS: No pneumothorax. No pleural effusions. A few small bibasilar linear densities which favor subsegmental atelectasis or scarring. Otherwise, the lungs are clear. The heart is normal in size. No evidence for pulmonary edema. IMPRESSION: No acute process. ACT 112: Negative or not required by law. Electronically signed by: Derek Solomon M.D. 06/28/2023 1:46 PM Discharge Plan Visit Data Chief Complaint: Abdominal Pain Stated Complaint: AB PAIN ED Provider: Clara Chacko Discharge Problem: Acute kidney failure, Crohn's disease, Enterocutaneous fistula, Acute dehydration, Hypovolemia with active loss of fluid Patient Disposition: Admitted As Inpatient Discharge Instructions Interventions: ED Discharge Assessment Last Done: 06/28/23 16:05 Discharge Problem: Acute kidney failure Qualifiers: Acute renal failure type: unspecified Qualified Code(s): N17.9 - Acute kidney failure, unspecified Crohn's disease Qualifiers: Gastrointestinal tract location: unspecified location Digestive disease complication type: with fistula Qualified Code(s): K50.913 - Crohn's disease, unspecified, with fistula
[2023-06-28 14:15] LABS: Albumin Globulin Ratio 0.6 (0.9-2); BUN Creatinine Ratio 7.3 (10-20); Bilirubin Direct 0.4 mg/dl (0-0.2); Bilirubin,Total 0.9 mg/dl (0.2-1.0); Calcium 7.7 mg/dl (8.6-10.3); Creatinine Clr Calc Pharmacy 11.6 ml/min; Est GFR (African American) 7.4 ml/min; Est GFR (Non-African American) 6.4 ml/min; Globulin 3.2 gm/dl (2.5-4.0); Magnesium 2.1 mg/dl (1.7-2.4); Potassium 5.1 mmol/L (3.5-5.1); Total Protein 5.2 gm/dl (6.0-8.3)
[2023-06-28] MEDS ORDERED: DEXTROSE 50% 50 ML SYRINGE IV ONE (14:16)
--- NOTE | 2023-06-28 14:28 | CT Scan Report ---
CT OF THE ABDOMEN AND PELVIS WITHOUT CONTRAST CLINICAL HISTORY: hypotension, h/o perf PUD, open belly would, COMPARISON STUDY: CT of the abdomen and pelvis April 07, 2023. TECHNIQUE: Axial images of the abdomen and pelvis were obtained without IV contrast. Images were revi ewed in the axial, sagittal, and coronal planes. Automated exposure control was utilized for the jayda dy. A dose lowering technique was utilized adhering to the principles of ALARA. FINDINGS: No pneumatosis, free air or portal venous gas is present. Evaluation of the abdomen and pel vis is suboptimal on this unenhanced examination. Liver, spleen, adrenal glands and pancreas are unre markable. There are a few punctate left renal calculi. There are no ureteral calculi and there is no hydronephrosis. A Salazar balloon and gas within the bladder are present. There are postoperative findi ngs consistent with proctocolectomy with left lower quadrant ileostomy. There is no evidence for a antoni wel obstruction. An open wound is noted. Enterocutaneous fistula is noted on image 166 of [id number]. No ass ociated fluid collection is noted. A small perigastric density measures 4.5 x 1.1 cm. Small amount of fluid along the right hepatic lobe is noted. This appears loculated and measures 2.8 x 1.7 cm. This was shown on prior CT. Gallstone within the gallbladder is present. Gallbladder is not distended. Rad iodensities within the distal stomach favor an endoscopic clips. In addition, there is a 5.3 cm radio density within the right mid abdomen, within the distal jejunum or proximal ileum. This represents a stent with possible stent migration. This does not appear to be within the duodenum. Multiple mildly enlarged abdominal lymph nodes are noted. Index ileocolic node on image 185 measures 1.4 x 1.2 cm. A portacaval lymph node measures 2.9 x 1.5 cm. Right femoral central venous catheter is in place. IMPRESSION: 1. Status post proctocolectomy with left lower quadrant ileostomy. No evidence for a bowel obstructio n. Open wound with enterocutaneous fistula, as described above. 2. Endoscopic stent within the right mid abdomen, likely within the distal jejunum or proximal ileum. This raises the possibility of stent migration. Correlation with stent placement is recommended. 3. 4.5 x 1.1 cm lobulated perigastric density at site of free air on prior CT. This may reflect a tin y residual collection or scar. No drainable fluid collections. 4. Cholelithiasis. 5. Punctate left renal calculi. No ureteral calculi. No hydronephrosis. 6. Mildly enlarged abdominal lymph nodes, as described above. These are probably reactive but can be assessed on follow-up exams to ensure resolution. ACT 112: Negative or not required by law. Electronically signed by: Reji Ray M.D. 06/28/2023 2:26 PM
[2023-06-28] MEDS ORDERED: HYDROmorphone INJ 1 MG/ML SYRINGE IV STA (14:30)
[2023-06-28] MEDS ORDERED: DESMOPRESSIN ACETATE 2 MCG in SODIUM CHLORIDE 0.9% 50 ML IV ONE (14:43)
--- NOTE | 2023-06-28 14:43 | Critical Care Consultation ---
Date of Consultation June 28, 2023 Assessment & Plan (1) Acute kidney failure: Reason Critically Ill: [] PLAN: Neuro: Chronic pain: Not opiate cooper -Continue home Suboxone -Patient did not take today's Suboxone dose nor any of his meds secondary to nausea and vomiting CV: Arterial hypotension secondary to hypovolemia -Given volume expansion in the emergency department now we must carefully manage his electrolytes Fluids/Renal: Hyponatremia -Presumptive hypovolemic hyponatremia in the setting of prerenal acute kidney injury -Initial sodium one 10 repeat sodium was 120 this has been repeated and is pending in the interim we have administered 2 mcg of DDAVP and stopped additional fluids -We will carefully monitor the patient's sodium with a BMP every 4 hours Acute kidney injury: ATN Hyperkalemia: Received empiric treatment in emergency department -Follow-up frequent BMPs -Salazar placed and producing urine ID: Possible sepsis of unclear etiology -Broad-spectrum antibiotics adjusted for kidney function: Daptomycin every 48 hours Zosyn every 12 hours GI/Nutrition: Enterocutaneous fistula -Wound consult -Per patient's report we do not carry the supplies necessary for a fistula and wound his size: Patient requesting transfer to [facility] who is familiar with the patient and his surgical team Heme: Leukocytosis and thrombophilia DVT prophylaxis: Heparin 5000 units every 8 hours Endocrine: ICU hyperglycemia protocol Vascular access: Poor vascular access, right femoral line placed in the emergency department. - Critical care service will attempt to obtain PICC versus midline access Code Status: Full Disposition: ICU for frequent BMP and electrolyte management Patient requested transfer to [facility], Discussed with triage officer of the day Dr. Gonzalez they do not have capacity in the ICU at this time to except the patient's as we have comparable services at this facility. The patient has been placed on a pending transfer board and clarified with the transfer center that [facility] should be intermittently updating us regarding bed availability. We will continue to update should the patient's condition improved and he no longer require ICU level of care where he decompensate requiring renal replacement therapy or any other issue which would require services unavailable here which would be available at [facility]. (2) Abdominal pain: (3) Crohn disease: (4) Enterocutaneous fistula: (5) Hyponatremia: (6) Sepsis: (7) Weakness: (8) Dehydration: Supervising Physician Co-Signing Physician Notes I have personally spent 70 minutes of critical care time in the direct management of this patient. This is a life/limb threatening event. This includes time spent evaluating patient, direct bedside care, chart review, placing orders, interpretation of diagnostic studies, discussion with consultants, patient, and/or family members regarding treatment decisions, as well as other required patient management activities. This time is exclusive of all separately billable procedures, and teaching time and separate from and in addition to any other critical care service time. History of Present Illness Reason for Consultation: Hyponatremia, acute kidney failure Requesting Physician: Ginna History of Present Illness Upon questioning the patient for his history he gestured to his who provided the history and the patient filled in details. Ultimately the patient has been feeling ill for the past 2 days has had poor intake and has episodes of nausea and vomiting and he has not urinated in the last 2 days. He was scheduled to be seen in [facility] for evaluation of his enterocutaneous fistulas and changing of his wound VAC and he was too weak to make the trip. He was brought for further evaluation to the emergency department. He was found to have profound hyponatremia and was hypotensive he was given 2 L of normal saline. Discussions were started with possible transfer to [facility], the patient is requesting transfer to [facility]. Allergies Allergy/AdvReac Type Severity Reaction Status Date / Time Fish Containing Products Allergy Verified 06/29/23 09:35 fish derived Allergy Verified 06/29/23 09:35 fish oil Allergy Verified 06/29/23 09:35 shellfish derived Allergy Verified 06/29/23 09:35 adalimumab [From Humira] AdvReac Severe CONVULSIONS Verified 06/28/23 15:26 infliximab [From Remicade] AdvReac Severe CONVULSIONS Verified 06/28/23 15:26 methotrexate AdvReac Severe CONVULSIONS Verified 06/28/23 15:26 SEAFOOD AdvReac Intermediate BLOATING/GAS Uncoded 06/28/23 15:26 DISCOMFORT Home Medications Medication Instructions Recorded Confirmed Type buprenorphine 8 mg-naloxone 2 mg 2 tab sublingual DAILY 06/22/22 06/28/23 History sublingual tablet pantoprazole 40 mg tablet,delayed 40 mg PO AMHS 06/22/22 06/28/23 History release diclofenac sodium 75 mg 75 mg PO BID 08/02/22 06/28/23 History tablet,delayed release folic acid 1 mg tablet 1 mg PO QAM 08/02/22 06/28/23 History mecobalamin (vitamin B12) 1,000 1,000 mcg PO QAM 08/02/22 06/28/23 History mcg chewable tablet tadalafil 5 mg tablet 5 mg PO DAILY PRN Erectile 08/02/22 06/28/23 History Dysfunction thiamine mononitrate (vit B1) 100 100 mg PO QAM 08/02/22 06/28/23 History mg tablet gabapentin 300 mg capsule 300 mg PO TID 04/07/23 06/28/23 History Patient History Medical History Narcotic abuse Tobacco use Alcohol abuse Acute anxiety Depression Arthritis Crohn disease Surgical History History of wisdom tooth extraction History of knee surgery Bilateral knee scopes History of hernia surgery History of colon surgery Family History Other Diabetes Social History Smoking Status: Current every day smoker Tobacco Type: Cigarettes Cigarettes Per Day: 1/2 pack of cigarettes; Second Hand Exposure: Yes; Do You Dip or Chew Tobacco: No; Hx Alcohol Use: No Hx Substance Use: Yes Prescribed Medications: Former Misuse of Rx Meds Non- Prescribed Medications: Marijuana Last Used Substance Other:: 06/28/2023 Substance Use Type Other:: suboxone Preferred Language: [place] Communication Ability: Effective [employer]yer Required: No Beliefs That Will Affect Care: None Current Living Situation: Significant Other Other Information That Helps Us Care for You: No Feels Safe at Home: Yes Safety Concerns: Feels Safe At This Time Assistive Devices: Walker and Wheelchair Physical Exam Physical Exam: General: Alert. nontoxic. Dry mucous membranes Skin: Warm, dry, Head: Atraumatic Ears, nose, mouth and throat: airway patent Cardiovascular: Normal peripheral perfusion Respiratory: no respiratory distress Gastrointestinal: Ileostomy present with scant stool in bag, wound VAC present over large portion of central abdomen with drainage, there is an area along the dressing border from about 6-5 o'clock that does show evidence of mild bleeding no obvious excoriation was seen Musculoskeletal: No deformity Results & Data Results & Data Vital Signs (Past 12 Hours) Vital Signs Temp Pulse Resp BP Pulse Ox O2 Del Method 06/28/23 14:02 83 21 92 06/28/23 14:02 91/49 L 06/28/23 13:45 84 17 94 06/28/23 13:40 87 22 96 06/28/23 13:40 111/59 L 06/28/23 13:35 82 18 97 06/28/23 13:30 85 17 99 06/28/23 13:30 112/57 L 06/28/23 13:25 85 18 98 06/28/23 13:21 110/47 L 06/28/23 13:21 86 19 100 06/28/23 13:20 86 18 97 06/28/23 13:15 87 17 96 06/28/23 13:10 87 20 96 06/28/23 13:10 101/54 L 06/28/23 13:05 85 18 95 06/28/23 13:01 86 18 97 06/28/23 13:01 89/53 L 06/28/23 13:00 85 22 98 06/28/23 12:55 92 H 18 98 06/28/23 12:54 85/52 L 06/28/23 12:54 86 15 97 06/28/23 12:51 87/67 L 06/28/23 12:51 87 18 98 06/28/23 12:50 92 H 14 96 06/28/23 12:45 96 H 22 98 06/28/23 12:40 101 H 20 98 06/28/23 12:40 118/78 06/28/23 12:52 93 H 06/28/23 12:35 95 H 18 99 06/28/23 12:30 90 22 98 06/28/23 12:30 116/45 L 06/28/23 12:25 90 20 97 06/28/23 12:22 93 H 20 94 06/28/23 12:22 109/40 L 06/28/23 12:20 90 18 94 06/28/23 12:17 97 H 18 93 06/28/23 12:17 102/56 L 06/28/23 12:15 100 H 19 92 06/28/23 12:11 100 H 18 93 06/28/23 12:10 97 H 18 93 06/28/23 12:05 96 H 18 99 06/28/23 12:00 96 H 17 97 06/28/23 12:00 99/65 L 06/28/23 11:59 99 H 17 93 06/28/23 11:59 116/66 06/28/23 11:55 94 H 21 93 06/28/23 11:51 88 23 97 06/28/23 11:51 92/42 L 06/28/23 11:50 85 18 96 06/28/23 11:45 89 20 95 06/28/23 11:41 85 17 97 06/28/23 11:41 85/48 L 06/28/23 11:40 83 16 96 06/28/23 11:35 85 16 92 06/28/23 11:31 70/37 L 06/28/23 11:31 88 15 93 06/28/23 11:30 88 17 06/28/23 11:25 98 H 18 06/28/23 11:24 92 H 17 06/28/23 11:45 36.5 C 97 H 18 97 Room Air 06/28/23 11:43 97 Room Air Critical Care Results & Data Vital Signs (Past 12 Hours) Vital Signs Temp Pulse Resp BP Pulse Ox O2 Del Method 06/28/23 14:02 83 21 92 06/28/23 14:02 91/49 L 06/28/23 13:45 84 17 94 06/28/23 13:40 87 22 96 06/28/23 13:40 111/59 L 06/28/23 13:35 82 18 97 06/28/23 13:30 85 17 99 06/28/23 13:30 112/57 L 06/28/23 13:25 85 18 98 06/28/23 13:21 110/47 L 06/28/23 13:21 86 19 100 06/28/23 13:20 86 18 97 06/28/23 13:15 87 17 96 06/28/23 13:10 87 20 96 06/28/23 13:10 101/54 L 06/28/23 13:05 85 18 95 06/28/23 13:01 86 18 97 06/28/23 13:01 89/53 L 06/28/23 13:00 85 22 98 06/28/23 12:55 92 H 18 98 06/28/23 12:54 85/52 L 06/28/23 12:54 86 15 97 06/28/23 12:51 87/67 L 06/28/23 12:51 87 18 98 06/28/23 12:50 92 H 14 96 06/28/23 12:45 96 H 22 98 06/28/23 12:40 101 H 20 98 06/28/23 12:40 118/78 06/28/23 12:52 93 H 06/28/23 12:35 95 H 18 99 06/28/23 12:30 90 22 98 06/28/23 12:30 116/45 L 06/28/23 12:25 90 20 97 06/28/23 12:22 93 H 20 94 06/28/23 12:22 109/40 L 06/28/23 12:20 90 18 94 06/28/23 12:17 97 H 18 93 06/28/23 12:17 102/56 L 06/28/23 12:15 100 H 19 92 06/28/23 12:11 100 H 18 93 06/28/23 12:10 97 H 18 93 06/28/23 12:05 96 H 18 99 06/28/23 12:00 96 H 17 97 06/28/23 12:00 99/65 L 06/28/23 11:59 99 H 17 93 06/28/23 11:59 116/66 06/28/23 11:55 94 H 21 93 06/28/23 11:51 88 23 97 06/28/23 11:51 92/42 L 06/28/23 11:50 85 18 96 06/28/23 11:45 89 20 95 06/28/23 11:41 85 17 97 06/28/23 11:41 85/48 L 06/28/23 11:40 83 16 96 06/28/23 11:35 85 16 92 06/28/23 11:31 70/37 L 06/28/23 11:31 88 15 93 06/28/23 11:30 88 17 06/28/23 11:25 98 H 18 06/28/23 11:24 92 H 17 06/28/23 11:45 36.5 C 97 H 18 97 Room Air 06/28/23 11:43 97 Room Air Lab & Micro Results (Past 24 Hours) RBC 3.57 M/uL (4.70-6.10) L 06/29/23 WBC 9.27 K/ul (4.8-10.8) 06/29/23 Hgb 9.9 g/dl (14.0-18.0) L 06/29/23 Hct 29.2 % (42.0-52.0) L 06/29/23 MCV 81.8 fL (80.0-100.0) 06/29/23 MCH 27.7 pg (25.0-34.0) 06/29/23 MCHC 33.9 g/dL (32.0-36.0) 06/29/23 RDW Standard Deviation 47.4 fL (36.4-46.3) H 06/29/23 RDW Coefficient of Variation 15.7 % (11.5-14.5) H 06/29/23 Plt Count 359 K/uL (130-400) 06/29/23 MPV 10.1 fL (9.4-12.4) 06/29/23 Neutrophils (%) (Auto) 59.1 % 06/29/23 Lymphocytes (%) (Auto) 18.0 % 06/29/23 Monocytes # (Auto) 1.83 K/uL (0.11-0.59) H 06/29/23 Eosinophils # (Auto) 0.17 K/uL (0.00-0.50) 06/29/23 Immature Granulocyte % (Auto) 0.5 % 06/29/23 Neutrophils # (Auto) 5.47 K/uL (1.40-6.50) 06/29/23 Lymphocytes # (Auto) 1.67 K/uL (1.20-3.40) 06/29/23 Monocytes # (Auto) 1.83 K/uL (0.11-0.59) H 06/29/23 Eosinophils # (Auto) 0.17 K/uL (0.00-0.50) 06/29/23 Basophils # (Auto) 0.08 K/uL (0.00-0.20) 06/29/23 Immature Granulocyte # (Auto) 0.05 K/uL (0.01-0.20) 3 Na 118 mmol/L (136-145) L* 06/29/23 K 4.3 mmol/L (3.5-5.1) 06/29/23 Cl 88 mmol/L (98-107) L 06/29/23 CO2 19 mmol/L (21-32) L 06/29/23 Anion Gap 11 (3-11) 06/29/23 BUN 65 mg/dl (6-23) H 06/29/23 Creatinine 6.81 mg/dl (0.6-1.4) H* 06/29/23 Estimated GFR ( Amer) 11.2 ml/min 06/29/23 Estimated GFR (Non-Af Amer) 9.7 ml/min 06/29/23 BUN/Creatinine Ratio 9.5 (10-20) L 06/29/23 Glu 125 mg/dl (70-99(Fasting)) H 06/29/23 Ca 8.6 mg/dl (8.6-10.3) 06/29/23 Phosphorus Level 6.6 mg/dl (2.5-4.9) H 06/29/23 Total Bilirubin 1.1 mg/dl (0.2-1.0) H 06/29/23 Direct Bilirubin 0.6 mg/dl (0-0.2) H 06/29/23 AST 11 U/L (13-39) L 06/29/23 ALT 8 U/L (7-52) 06/29/23 Alkaline Phosphatase 272 U/L (34-104) H 06/29/23 TP 7.1 gm/dl (6.0-8.3) 06/29/23 Albumin 3.2 gm/dl (3.4-5.0) L 06/29/23 Mg 2.3 mg/dl (1.7-2.4) 06/29/23 10:31 Calcium Level 8.6 mg/dl (8.6-10.3) 06/29/23 10:31 Ionized Calcium 1.17 mmol/L (1.12-1.32) 06/29/23 10:31 Prothromb Time International Ratio 1.1 (0.9-1.1) 06/29/23 04:0 4 Diagnostic Findings (Past 24 Hours) Chest X-Ray 06/28/23 11:29 XR chest 1V portable HISTORY: weakness COMPARISON: Chest 04/07/2023. FINDINGS: No pneumothorax. No pleural effusions. A few small bibasilar linear densities which favor subsegmental atelectasis or scarring. Otherwise, the lungs are clear. The heart is normal in size. No evidence for pulmonary edema. IMPRESSION: No acute process. ACT 112: Negative or not required by law. Electronically signed by: Derek Solomon M.D. 06/28/2023 1:46 PM Abdomen/Pelvis CT 06/28/23 13:18 CT OF THE ABDOMEN AND PELVIS WITHOUT CONTRAST CLINICAL HISTORY: hypotension, h/o perf PUD, open belly would, COMPARISON STUDY: CT of the abdomen and pelvis April 07, 2023. TECHNIQUE: Axial images of the abdomen and pelvis were obtained without IV contrast. Images were reviewed in the axial, sagittal, and coronal planes. Automated exposure control was utilized for the study. A dose lowering technique was utilized adhering to the principles of ALARA. FINDINGS: No pneumatosis, free air or portal venous gas is present. Evaluation of the abdomen and pelvis is suboptimal on this unenhanced examination. Liver, spleen, adrenal glands and pancreas are unremarkable. There are a few punctate left renal calculi. There are no ureteral calculi and there is no hydronephrosis. A Salazar balloon and gas within the bladder are present. There are postoperative findings consistent with proctocolectomy with left lower kathy drant ileostomy. There is no evidence for a bowel obstruction. An open wound is noted. Enterocutaneous fistula is noted on image 166 of [id number]. No associated fluid collection is noted. A small perigastric density measures 4.5 x 1.1 cm. Small amount of fluid along the right hepatic lobe is noted. This appears loculated and measures 2.8 x 1.7 cm. This was shown on prior CT. Gallstone within the gallbladder is present. Gallbladder is not distended. Radiodensities within the distal stomach favor an endoscopic clips. In addition, there is a 5.3 cm radiodensity within the right mid abdomen, within the distal jejunum or proximal ileum. This represents a stent with possible stent migration. This does not appear to be within the duodenum. Multiple mildly enlarged abdominal lymph nodes are noted. Index ileocolic node on image 185 measures 1.4 x 1.2 cm. A portacaval lymph node measures 2.9 x 1.5 cm. Right femoral central venous catheter is in place. IMPRESSION: 1. Status post proctocolectomy with left lower quadrant ileostomy. No evidence for a bowel obstruction. Open wound with enterocutaneous fistula, as described above. 2. Endoscopic stent within the right mid abdomen, likely within the distal jejunum or proximal ileum. This raises the possibility of stent migration. Correlation with stent placement is recommended. 3. 4.5 x 1.1 cm lobulated perigastric density at site of free air on prior CT. This may reflect a tiny residual collection or scar. No drainable fluid collections. 4. Cholelithiasis. 5. Punctate left renal calculi. No ureteral calculi. No hydronephrosis. 6. Mildly enlarged abdominal lymph nodes, as described above. These are probably reactive but can be assessed on follow-up exams to ensure resolution. ACT 112: Negative or not required by law. Electronically signed by: Reji Ray M.D. 06/28/2023 2:26 PM I & O Totals 24 Hours 06/27/23 06/28/23 06/29/23 06:59 06:59 06:59 Intake Total 2059 Balance 2059 / 2059 Cumulative 06/28/23 10:54 thru 06/28/23 14:06 Intake Total 2059 Balance 2059 RT Ventilator Mngmt (Last Documented) Ventilator Ordered Settings Respiratory Rate 21 06/28/23 14:02 Ventilator - PT Measurements Respiratory Rate 21 Coding Level of Care Code 47494 CRITICAL CARE 1ST 30-74M Diagnoses Acute renal failure with tubular necrosis N17.0 Acute renal failure type: with acute tubular necrosis Generalized abdominal pain R10.84 Abdominal location: generalized Crohn disease K50.018 Digestive disease complication type: other complication Gastrointestinal tract location: small intestine Enterocutaneous fistula K63.2 Hyponatremia E87.1 Sepsis with acute renal failure and tubular necrosis without septic shock, due to unspecified organism A41.9; R65.20; N17.0 Acute renal failure type: with acute tubular necrosis Sepsis acute organ dysfunction status: with acute organ dysfunction Sepsis type: sepsis due to unspecified organism Severe sepsis acute organ dysfunction type: acute renal failure Severe sepsis shock status: without septic shock Weakness R53.1 Dehydration E86.0 (1) Acute kidney failure Acute renal failure type: with acute tubular necrosis Qualified Code(s): N17.0 - Acute kidney failure with tubular necrosis (2) Abdominal pain Abdominal location: generalized Qualified Code(s): R10.84 - Generalized abdominal pain (3) Crohn disease Digestive disease complication type: other complication Gastrointestinal tract location: small intestine Qualified Code(s): K50.018 - Crohn's disease of small intestine with other complication (6) Sepsis Acute renal failure type: with acute tubular necrosis Sepsis acute organ dysfunction status: with acute organ dysfunction Sepsis type: sepsis due to unspecified organism Severe sepsis acute organ dysfunction type: acute renal failure Severe sepsis shock status: without septic shock Qualified Code(s): A41.9 - Sepsis, unspecified organism; R65.20 - Severe sepsis without septic shock; N17.0 - Acute kidney failure with tubular necrosis
[2023-06-28 15:21] LABS: BUN Creatinine Ratio 6.8 (10-20); Calcium 8.3 mg/dl (8.6-10.3); Creatinine Clr Calc Pharmacy 9.9 ml/min; Est GFR (African American) 6.1 ml/min; Est GFR (Non-African American) 5.2 ml/min; Potassium 5.1 mmol/L (3.5-5.1)
--- NOTE | 2023-06-28 15:25 | History & Physical Report ---
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 Also with known duodenal stent migration that patient refused to have repeat EGD for retrieval. Per discussion with insurance compliance analyst plan is to transfer the patient pending bed availability. Currently [facility] [place] ICU does not have beds, but will remain in contact with [facility] when possible bed available. Possible Sepsis -meets criteria in setting of leukocytosis, hypotension Enterocutaneous fistula s/p multiple abd surgeries hx of Crohn's disease s/p proctocolectomy and end ileostomy pt with increased bloody drainage to wound pt admitted to ICU under insurance compliance analyst Dr. Dave Plan for broad spectrum antibiotics with Dapto/Zosyn due to possible sepsis wound care consulted, consider gen surg consult while pt in house and pt [place] [facility] [place] them as we also do not carry his wound supplies MELISSA Hyperkalemia Acute Hyponatremia likely in setting of pre renal acute kidney injury vs ATN insetting of hypotension bun 77, cr 11.3; baseline 0.5 serial labs, DDAVP ordered x 2 per insurance compliance analyst repletion and fluids as per insurance compliance analyst Nephrology consulted Chronic Pain pt on Suboxone therapy, continued per ICU pt also uses medical marijuana Tobacco abuse nicotine patch ordered cessation advised Previous alcohol abuse abstinent for 2 months continue folic acid/thiamine Lines: R femoral line placed in ED Salazar Catheter placed in ED draining dark/kathy urine FULL CODE DVT ppx: Heparin per insurance compliance analyst PCP: [facility] Pt was seen and examined in collaboration with Dr. 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 Patient was [place] [facility] [place] He was initially admitted for sepsis in setting of perforated duodenal ulcer. He required stent placement and complicated abscesses status post IR drainage and Stent migration. He did complete course of IV antibiotics. CT imaging revealed no further progression of duodenal stent migration. Patient at that time refused further EGDs to retrieve the stent. He initially was managed with TPN however he was advanced off of this per general surgery and GI. Since being discharged home he has had to maintain an open abdomen wound in setting of enterocutaneous fistula requiring wound care. at bedside states that he has had increased drainage from abdominal wound with bloody drainage. He also has a colostomy bag draining bloody discharge as well. at bedside gives most of history and states that he has been pale and complaining of being dizzy over the last few days. She had been monitoring his temperature and denies any fever, but patient has intermittent shakes. Over the last 2 days he also had nausea and vomiting. He denies any abd pain at this current time. She also elicits that he has not urinated in 2 days. Overall appetite has been poor last several days. He has not taken any of his meds today either. In ED patient was significantly hypotensive with critical MELISSA with BUN 77 and creatinine of 11.30, potassium 6.1 and sodium of 110. CT abdomen pelvis obtained which revealed status post proctocolectomy with left lower Ileostomy, Open wound with enterocutaneous fistula, duodenal stent with migration, 4.5 x 1cm perigastric density likely residual scare and enlarged abdominal lymph nodes. He was started on broad spectrum antibiotics and hospitalist service as well as insurance compliance analyst was consulted for admission. Lard Tub Washer called for transfer [place] [facility] [place] patient request; however there is no bed availability at this time and this will be revisited pending call from [facility] [place]. Allergies Allergy/AdvReac Type Severity Reaction Status Date / Time Fish Containing Products Allergy Verified 06/29/23 09:35 fish derived Allergy Verified 06/29/23 09:35 fish oil Allergy Verified 06/29/23 09:35 shellfish derived Allergy Verified 06/29/23 09:35 adalimumab [From Humira] AdvReac Severe CONVULSIONS Verified 06/28/23 15:26 infliximab [From Remicade] AdvReac Severe CONVULSIONS Verified 06/28/23 15:26 methotrexate AdvReac Severe CONVULSIONS Verified 06/28/23 15:26 SEAFOOD AdvReac Intermediate BLOATING/GAS Uncoded 06/28/23 15:26 DISCOMFORT Home Medications Medication Instructions Recorded Confirmed Type buprenorphine 8 mg-naloxone 2 mg 2 tab sublingual DAILY 06/22/22 06/28/23 History sublingual tablet pantoprazole 40 mg tablet,delayed 40 mg PO AMHS 06/22/22 06/28/23 History release diclofenac sodium 75 mg 75 mg PO BID 08/02/22 06/28/23 History tablet,delayed release folic acid 1 mg tablet 1 mg PO QAM 08/02/22 06/28/23 History mecobalamin (vitamin B12) 1,000 1,000 mcg PO QAM 08/02/22 06/28/23 History mcg chewable tablet tadalafil 5 mg tablet 5 mg PO DAILY PRN Erectile 08/02/22 06/28/23 History Dysfunction thiamine mononitrate (vit B1) 100 100 mg PO QAM 08/02/22 06/28/23 History mg tablet gabapentin 300 mg capsule 300 mg PO TID 04/07/23 06/28/23 History Past Med/Surg History Medical History Acute anxiety Alcohol abuse Arthritis Crohn disease Depression Narcotic abuse Tobacco use Surgical History History of colon surgery History of hernia surgery History of knee surgery Bilateral knee scopes History of wisdom tooth extraction Family History Other Diabetes Social History (Updated 06/28/23 @ 16:22 by Yvette Perez PA-C) Smoking Status: Current every day smoker Tobacco Type: Cigarettes Cigarettes Per Day: 1/2 pack of cigarettes; Second Hand Exposure: Yes; Do You Dip or Chew Tobacco: No; Hx Alcohol Use: No Hx Substance Use: Yes Prescribed Medications: Former Misuse of Rx Meds Non- Prescribed Medications: Marijuana Last Used Substance Other:: 06/28/2023 Substance Use Type Other:: suboxone Preferred Language: [place] Communication Ability: Effective Displayer Required: No Beliefs That Will Affect Care: None Current Living Situation: Significant Other Other Information That Helps Us Care for You: No Feels Safe at Home: Yes Safety Concerns: Feels Safe At This Time Assistive Devices: Cane, Walker and Wheelchair Review of Systems Review of Systems: All systems reviewed & are unremarkable except as noted in HPI & below Physical Exam Physical Exam: please refer to Dr. Lindsay addendum for physical exam findings. Results & Data Results & Data Vital Signs (Past 12 Hours) Vital Signs Temp Pulse Resp BP Pulse Ox O2 Del Method 06/28/23 14:55 81 18 93 06/28/23 14:50 80 18 92 06/28/23 14:50 92/42 L 06/28/23 14:46 93/43 L 06/28/23 14:46 80 16 91 06/28/23 14:45 79 18 93 06/28/23 14:40 80 17 93 06/28/23 14:40 99/51 L 06/28/23 14:35 78 18 94 06/28/23 14:30 81 18 96 06/28/23 14:30 96/44 L 06/28/23 14:25 81 16 96 06/28/23 14:20 87 16 94 06/28/23 14:20 88/57 L 06/28/23 14:15 82 16 95 06/28/23 14:10 80 21 90 06/28/23 14:10 94/47 L 06/28/23 14:05 82 16 90 06/28/23 14:02 83 21 92 06/28/23 14:02 91/49 L 06/28/23 13:45 84 17 94 06/28/23 13:40 87 22 96 06/28/23 13:40 111/59 L 06/28/23 13:35 82 18 97 06/28/23 13:30 85 17 99 06/28/23 13:30 112/57 L 06/28/23 13:25 85 18 98 06/28/23 13:21 110/47 L 06/28/23 13:21 86 19 100 06/28/23 13:20 86 18 97 06/28/23 13:15 87 17 96 06/28/23 13:10 87 20 96 06/28/23 13:10 101/54 L 06/28/23 13:05 85 18 95 06/28/23 13:01 86 18 97 06/28/23 13:01 89/53 L 06/28/23 13:00 85 22 98 06/28/23 12:55 92 H 18 98 06/28/23 12:54 85/52 L 06/28/23 12:54 86 15 97 06/28/23 12:51 87/67 L 06/28/23 12:51 87 18 98 06/28/23 12:50 92 H 14 96 06/28/23 12:45 96 H 22 98 06/28/23 12:40 101 H 20 98 06/28/23 12:40 118/78 06/28/23 12:52 93 H 06/28/23 12:35 95 H 18 99 06/28/23 12:30 90 22 98 06/28/23 12:30 116/45 L 06/28/23 12:25 90 20 97 06/28/23 12:22 93 H 20 94 06/28/23 12:22 109/40 L 06/28/23 12:20 90 18 94 06/28/23 12:17 97 H 18 93 06/28/23 12:17 102/56 L 06/28/23 12:15 100 H 19 92 06/28/23 12:11 100 H 18 93 06/28/23 12:10 97 H 18 93 06/28/23 12:05 96 H 18 99 06/28/23 12:00 96 H 17 97 06/28/23 12:00 99/65 L 06/28/23 11:59 99 H 17 93 06/28/23 11:59 116/66 06/28/23 11:55 94 H 21 93 06/28/23 11:51 88 23 97 06/28/23 11:51 92/42 L 06/28/23 11:50 85 18 96 06/28/23 11:45 89 20 95 06/28/23 11:41 85 17 97 06/28/23 11:41 85/48 L 06/28/23 11:40 83 16 96 06/28/23 11:35 85 16 92 06/28/23 11:31 70/37 L 06/28/23 11:31 88 15 93 06/28/23 11:30 88 17 06/28/23 11:25 98 H 18 06/28/23 11:24 92 H 17 06/28/23 11:45 36.5 C 97 H 18 97 Room Air 06/28/23 11:43 97 Room Air Diagnostic Findings Chest X-Ray 06/28/23 11:29 XR chest 1V portable HISTORY: weakness COMPARISON: Chest 04/07/2023. FINDINGS: No pneumothorax. No pleural effusions. A few small bibasilar linear densities which favor subsegmental atelectasis or scarring. Otherwise, the lungs are clear. The heart is normal in size. No evidence for pulmonary edema. IMPRESSION: No acute process. ACT 112: Negative or not required by law. Electronically signed by: Derek Solomon M.D. 06/28/2023 1:46 PM Abdomen/Pelvis CT 06/28/23 13:18 CT OF THE ABDOMEN AND PELVIS WITHOUT CONTRAST CLINICAL HISTORY: hypotension, h/o perf PUD, open belly would, COMPARISON STUDY: CT of the abdomen and pelvis April 07, 2023. TECHNIQUE: Axial images of the abdomen and pelvis were obtained without IV contrast. Images were reviewed in the axial, sagittal, and coronal planes. Automated exposure control was utilized for the study. A dose lowering technique was utilized adhering to the principles of ALARA. FINDINGS: No pneumatosis, free air or portal venous gas is present. Evaluation of the abdomen and pelvis is suboptimal on this unenhanced examination. Liver, spleen, adrenal glands and pancreas are unremarkable. There are a few punctate left renal calculi. There are no ureteral calculi and there is no hydronephrosis. A Salazar balloon and gas within the bladder are present. There are postoperative findings consistent with proctocolectomy with left lower quadrant ileostomy. There is no evidence for a bowel obstruction. An open wound is noted. Enterocutaneous fistula is noted on image 166 of [id number]. No associated fluid collection is noted. A small perigastric density measures 4.5 x 1.1 cm. Small amount of fluid along the right hepatic lobe is noted. This appears loculated and measures 2.8 x 1.7 cm. This was shown on prior CT. Gallstone within the gallbladder is present. Gallbladder is not distended. Radiodensities within the distal stomach favor an endoscopic clips. In addition, there is a 5.3 cm radiodensity within the right mid abdomen, within the distal jejunum or proximal ileum. This represents a stent with possible stent migration. This does not appear to be within the duodenum. Multiple mildly enlarged abdominal lymph nodes are noted. Index ileocolic node on image 185 measures 1.4 x 1.2 cm. A portacaval lymph node measures 2.9 x 1.5 cm. Right femoral central venous catheter is in place. IMPRESSION: 1. Status post proctocolectomy with left lower quadrant ileostomy. No evidence for a bowel obstruction. Open wound with enterocutaneous fistula, as described above. 2. Endoscopic stent within the right mid abdomen, likely within the distal jejunum or proximal ileum. This raises the possibility of stent migration. Correlation with stent placement is recommended. 3. 4.5 x 1.1 cm lobulated perigastric density at site of free air on prior CT. This may reflect a tiny residual collection or scar. No drainable fluid collections. 4. Cholelithiasis. 5. Punctate left renal calculi. No ureteral calculi. No hydronephrosis. 6. Mildly enlarged abdominal lymph nodes, as described above. These are probably reactive but can be assessed on follow-up exams to ensure resolution. ACT 112: Negative or not required by law. Electronically signed by: Reji Ray M.D. 06/28/2023 2:26 PM Medications Administered Medication List Discontinued Medications Dextrose (Dextrose 50% 50 Ml Syringe) 50 ml IV NOW STA Stop: 06/28/23 11:40 Last Admin: 06/28/23 12:00 Dose: 50 ml Documented By: JACOBY Dextrose (Dextrose 50% 50 Ml Syringe) 50 ml IV NOW ONE Stop: 06/28/23 14:17 Last Admin: 06/28/23 14:57 Dose: Not Given Documented By: JACOBY Fentanyl Citrate (Fentanyl Citrate Pf 100 Mcg/2 Ml Vial) Confirm Administered Dose 100 mcg .ROUTE .ST-MED ONE Stop: 06/28/23 12:19 Last Admin: 06/28/23 12:24 Dose: Not Given Documented By: DS Fentanyl Citrate (Fentanyl Citrate Pf 100 Mcg/2 Ml Vial) 50 mcg IV NOW STA Stop: 06/28/23 12:21 Last Admin: 06/28/23 12:24 Dose: 50 mcg Documented By: JACOBY Fentanyl Citrate (Fentanyl Citrate Pf 100 Mcg/2 Ml Vial) 50 mcg IV NOW STA Stop: 06/28/23 12:35 Last Admin: 06/28/23 12:35 Dose: 50 mcg Documented By: JACOBY Sodium Chloride (Nss) 1,000 mls @ 999 mls/hr IV .Q1H1M CHYNA Stop: 06/28/23 13:30 Last Admin: 06/28/23 12:27 Dose: Not Given Documented By: Infusion: 06/28/23 12:14 Dose: 0 mls/hr Documented By: Admin: 06/28/23 11:59 Dose: 999 mls/hr Documented By: JACOBY Calcium Gluconate 1,000 mg/ (Sodium Chloride) 60 mls @ 240 mls/hr IV NOW STA Stop: 06/28/23 11:51 Last Infusion: 06/28/23 12:14 Dose: 0 mls/hr Documented By: Admin: 06/28/23 12:00 Dose: 240 mls/hr Documented By: JACOBY Sodium Chloride (Nss) 1,000 mls @ 125 mls/hr IV .Q8H CHYNA Stop: 07/28/23 12:29 Last Infusion: 06/28/23 14:59 Dose: 0 mls/hr Documented By: Admin: 06/28/23 12:24 Dose: 125 mls/hr Documented By: JACOBY Lactated Ringer's (Lr) 1,000 mls @ 999 mls/hr IV .Q1H1M ONE Stop: 06/28/23 13:52 Last Infusion: 06/28/23 14:06 Dose: 0 mls/hr Documented By: Admin: 06/28/23 13:07 Dose: 999 mls/hr Documented By: JACOBY Piperacillin Sod/Tazobactam Sod (Zosyn) 4.5 gm in 100 mls @ 200 mls/hr IV NOW STA Stop: 06/28/23 13:51 Last Infusion: 06/28/23 14:59 Dose: 0 mls/hr Documented By: Admin: 06/28/23 13:41 Dose: 200 mls/hr Documented By: JACOBY Daptomycin 475 mg/ Syringe 9.5 mls @ 4.75 mls/min IV NOW STA; Protocol Stop: 06/28/23 13:24 Last Admin: 06/28/23 13:44 Dose: 4.75 mls/min Documented By: JACOBY Insulin Human Regular (Novolin-R Insulin Per Unit Charge) 10 units IV NOW STA Stop: 06/28/23 11:40 Last Admin: 06/28/23 11:59 Dose: 10 units Documented By: JACOBY Co-signed By: RIVERA Ondansetron HCl (Ondansetron Inj 2 Mg/Ml 2 Ml Vial) 4 mg IV NOW STA Stop: 06/28/23 11:30 Last Admin: 06/28/23 13:07 Dose: Not Given Documented By: JACOBY Sodium Bicarbonate (Sodium Bicarb 8.4% Inj 50 Meq/50 Ml Syr) 50 meq IV NOW STA Stop: 06/28/23 11:41 Last Admin: 06/28/23 12:00 Dose: 50 meq Documented By: JACOBY ECG Additional Comments: 97, NSR, qtc 477ms COVID-19 Results Results COVID-19 Adm Lab Results: RBC 3.57 M/uL (4.70-6.10) L 06/29/23 WBC 9.27 K/ul (4.8-10.8) 06/29/23 Hgb 9.9 g/dl (14.0-18.0) L 06/29/23 Hct 29.2 % (42.0-52.0) L 06/29/23 Plt Count 359 K/uL (130-400) 06/29/23 Neutrophils (%) (Auto) 59.1 % 06/29/23 Lymphocytes (%) (Auto) 18.0 % 06/29/23 Monocytes # (Auto) 1.83 K/uL (0.11-0.59) H 06/29/23 Eosinophils # (Auto) 0.17 K/uL (0.00-0.50) 06/29/23 Immature Granulocyte % (Auto) 0.5 % 06/29/23 Neutrophils # (Auto) 5.47 K/uL (1.40-6.50) 06/29/23 Lymphocytes # (Auto) 1.67 K/uL (1.20-3.40) 06/29/23 Monocytes # (Auto) 1.83 K/uL (0.11-0.59) H 06/29/23 Eosinophils # (Auto) 0.17 K/uL (0.00-0.50) 06/29/23 Basophils # (Auto) 0.08 K/uL (0.00-0.20) 06/29/23 Immature Granulocyte # (Auto) 0.05 K/uL (0.01-0.20) 3 Na 119 mmol/L (136-145) L* 06/29/23 K 4.5 mmol/L (3.5-5.1) 06/29/23 Cl 87 mmol/L (98-107) L 06/29/23 CO2 17 mmol/L (21-32) L 06/29/23 Anion Gap 15 (3-11) H 06/29/23 BUN 70 mg/dl (6-23) H 06/29/23 Creatinine 8.49 mg/dl (0.6-1.4) H* 06/29/23 BUN/Creatinine Ratio 8.2 (10-20) L 06/29/23 Glucose Level 105 mg/dl (70-99(Fasting)) H 06/29/23 Ca 8.4 mg/dl (8.6-10.3) L 06/29/23 Phosphorus Level 7.9 mg/dl (2.5-4.9) H 06/29/23 Total Bilirubin 1.1 mg/dl (0.2-1.0) H 06/29/23 Direct Bilirubin 0.6 mg/dl (0-0.2) H 06/29/23 AST/SGOT 11 U/L (13-39) L 06/29/23 ALT/SGPT 8 U/L (7-52) 06/29/23 Alkaline Phosphatase 272 U/L (34-104) H 06/29/23 Total Protein 7.1 gm/dl (6.0-8.3) 06/29/23 Albumin 3.2 gm/dl (3.4-5.0) L 06/29/23 Globulin 3.2 gm/dl (2.5-4.0) 06/28/23 Albumin/Globulin Ratio 0.6 (0.9-2) L 06/28/23 INR 1.1 (0.9-1.1) 06/29/23 SARS-CoV-2, RNA, NAAT NEGATIVE (NEGATIVE) 06/28/23 Chest X-Ray 06/28/23 Code Status & VTE Plan Code Status FULL CODE VTE Prophylaxis Plan VTE Prophylaxis will be ordered: Yes Supervising Physician Co-Signing Physician Notes 32-year-old male with PMH of Crohn's disease status post colectomy with perman ent ileostomy, alcohol abuse, narcotic abuse currently on Suboxone presented to the ED due to not feeling well. Recent history significant for extensive abdominal surgery, known duodenal stent migration that patient refused to have repeat EGD for retrieval. Patient was found to be septic likely secondary to abdominal wall infection/surgical site infection, acute kidney injury, acute hyponatremia, hyperkalemia. Patient reported having bloody drainage from the abdominal wound for last 2 days with decreased appetite, nausea, not feeling well, weak and decreased urine output for about the same duration. Patient's at bedside noted that she did not see any temperature while measuring at home but patient felt febrile. He is being managed in the ICU for possible sepsis secondary to abdominal wound infection, MELISSA, hyponatremia. [place] [facility] [place] Wound care consult for abdominal wound management. Nephrology for hyponatremia. Patient on daptomycin and Zosyn. Follow admitting blood cultures. On exam GENERAL: Alert and oriented x3. NAD, on RA. appears ill/sick/frail HEENT: some pallor, no icterus. Pupils equal, round and reactive to light. Oral mucosa moist. NECK: No JVD, no neck masses. HEART: S1 and S2 heard. Regular rate and rhythm. No murmur, no gallop. RESPIRATORY SYSTEM: Normal AP diameter. No accessory muscle use. No wheezing, no crackles. ABDOMEN: midline open abdominal wall wound, bloody drainage in the ostomy bag. LLQ ileostomy noted. CENTRAL NERVOUS SYSTEM: No facial droop. Speech is clear. Obeys simple commands. Moves extremities. EXTREMITIES: No edema, no erythema seen. UC w/ dark urine collection noted. I have seen and examined the patient and have discussed the case with the provider above. I agree with the assessment and plan as stated. (1) Acute kidney failure Acute renal failure type: with acute tubular necrosis Qualified Code(s): N17.0 - Acute kidney failure with tubular necrosis
[2023-06-28] MEDS: NICOTINE 21 MG/24 HR TDSY TD SCH (18:16)
[2023-06-28] MEDS ORDERED: STAT IV Infusion **Titration per Protocol STA (18:21)
[2023-06-28] MEDS: ICU Protocol for HYPERglycemia SCH ×2 (18:22→19:37)
[2023-06-28] MEDS: NOREPINEPHRINE/D5W 4 MG/250 ML PLCT IV SCH (18:27)
[2023-06-28 19:29] LABS: BUN Creatinine Ratio 7.1 (10-20); Calcium 8.5 mg/dl (8.6-10.3); Creatinine Clr Calc Pharmacy 10.4 ml/min; Est GFR (African American) 6.6 ml/min; Est GFR (Non-African American) 5.7 ml/min; Magnesium 2.6 mg/dl (1.7-2.4); Phosphorus 8.5 mg/dl (2.5-4.9)
[2023-06-28] MEDS: HYDROmorphone INJ 0.5 MG/0.5 ML SYR IV PRN (19:33)
[2023-06-28] MEDS ORDERED: ALBUMIN 25% 25 GM/100 ML VIAL IV ONE (19:44)
[2023-06-28 20:14] LABS: BUN Creatinine Ratio 7.2 (10-20); Calcium 8.6 mg/dl (8.6-10.3); Creatinine Clr Calc Pharmacy 10.6 ml/min; Est GFR (African American) 6.8 ml/min; Est GFR (Non-African American) 5.9 ml/min; Potassium 5.1 mmol/L (3.5-5.1)
[2023-06-28] MEDS: PIPERACILLIN/TAZOBACTAM 4.5 GM in DEXTROSE 5% MINI-B 100 ML IV SCH (21:06)
[2023-06-28] MEDS: HEPARIN SOD 5,000 UNIT/0.5 ML VIAL SQ SCH (21:09)
[2023-06-28] MEDS: PANTOprazole 40 MG TAB PO SCH (22:16)
[2023-06-28] MEDS: DESMOPRESSIN ACETATE 2 MCG in SODIUM CHLORIDE 0.9% 50 ML IV SCH (22:22)
[2023-06-28 23:05] LABS: BUN Creatinine Ratio 7.9 (10-20); Calcium 8.4 mg/dl (8.6-10.3); Creatinine Clr Calc Pharmacy 11.8 ml/min; Est GFR (African American) 7.7 ml/min; Est GFR (Non-African American) 6.7 ml/min; Magnesium 2.5 mg/dl (1.7-2.4); Phosphorus 7.7 mg/dl (2.5-4.9); Potassium 4.9 mmol/L (3.5-5.1)
[2023-06-29] MEDS: NOREPINEPHRINE/D5W 4 MG/250 ML PLCT IV SCH ×6 (01:51→17:20)
[2023-06-29 05:07] LABS: Albumin Level 3.2 gm/dl (3.4-5.0); BUN Creatinine Ratio 8.2 (10-20); Bilirubin Direct 0.6 mg/dl (0-0.2); Bilirubin,Total 1.1 mg/dl (0.2-1.0); Calcium 8.4 mg/dl (8.6-10.3); Creatinine Clr Calc Pharmacy 13.1 ml/min; Est GFR (African American) 8.6 ml/min; Est GFR (Non-African American) 7.4 ml/min; Magnesium 2.4 mg/dl (1.7-2.4); Phosphorus 7.9 mg/dl (2.5-4.9); Potassium 4.5 mmol/L (3.5-5.1); Total Protein 7.1 gm/dl (6.0-8.3)
[2023-06-29 05:21] LABS: Basophils # (auto) 0.08 K/uL (0.00-0.20); Basophils % (auto) 0.9 %; Eosinophils # (auto) 0.17 K/uL (0.00-0.50); Eosinophils % (auto) 1.8 %; Hematocrit (blood only) 29.2 % (42.0-52.0); Hemoglobin 9.9 g/dl (14.0-18.0); Immature Granulocytes # (auto) 0.05 K/uL (0.01-0.20); Immature Granulocytes % (auto) 0.5 %; Lymphocytes # (auto) 1.67 K/uL (1.20-3.40); Mean Corpuscular Hemoglobin 27.7 pg (25.0-34.0); Mean Corpuscular Hgb Conc 33.9 g/dL (32.0-36.0); Mean Corpuscular Volume 81.8 fL (80.0-100.0); Mean Platelet Volume 10.1 fL (9.4-12.4); Monocytes # (auto) 1.83 K/uL (0.11-0.59); Monocytes % (auto) 19.7 %; Neutrophils # (auto) 5.47 K/uL (1.40-6.50); Neutrophils % (auto) 59.1 %; Platelet Count 359 K/uL (130-400); RDW Coefficient of Variation 15.7 % (11.5-14.5); RDW Standard Deviation 47.4 fL (36.4-46.3); Red Blood Count 3.57 M/uL (4.70-6.10); White Blood Count 9.27 K/ul (4.8-10.8)
[2023-06-29 05:43] LABS: INR 1.1 (0.9-1.1); Prothrombin Time 12.4 Seconds (9.0-12.0)
[2023-06-29] MEDS: HEPARIN SOD 5,000 UNIT/0.5 ML VIAL SQ SCH ×3 (05:56→22:25)
[2023-06-29] MEDS: HYDROmorphone INJ 0.5 MG/0.5 ML SYR IV PRN ×5 (06:11→22:23)
[2023-06-29] MEDS: DESMOPRESSIN ACETATE 2 MCG in SODIUM CHLORIDE 0.9% 50 ML IV SCH (08:21)
[2023-06-29] MEDS: FOLIC ACID 1 MG TAB PO SCH (09:00)
[2023-06-29] MEDS: NICOTINE 21 MG/24 HR TDSY TD SCH (09:00)
[2023-06-29] MEDS: THIAMINE HCL 100 MG TAB PO SCH (09:00)
[2023-06-29] MEDS: PANTOprazole 40 MG TAB PO SCH ×2 (09:00→21:56)
[2023-06-29] MEDS: CYANOCOBALAMIN (B-12) 500 MCG TABLET PO SCH (09:00)
[2023-06-29] MEDS: ICU Protocol for HYPERglycemia SCH ×4 (09:01→23:35)
[2023-06-29] MEDS: BUPRENORPHINE/NALOXONE 8/2 MG TAB SL SCH (09:02)
[2023-06-29] MEDS: PIPERACILLIN/TAZOBACTAM 4.5 GM in DEXTROSE 5% MINI-B 100 ML IV SCH ×2 (09:02→22:01)
--- NOTE | 2023-06-29 09:52 | Critical Care Progress Note ---
Date of Service June 29, 2023 Assessment & Plan (1) Acute kidney failure: Plan: Reason Critically Ill: [] PLAN: Neuro: Chronic pain: Not opiate cooper -Continue home Suboxone -Requesting medication for breakthrough pain continue with Dilaudid IV as needed every 4 additional dose given during dressing change CV: Arterial hypotension secondary to hypovolemia -Weaning vasoactive medication -Checking cortisol but believe we still dealing with aspects of mild volume depletion Fluids/Renal: Hyponatremia: Improved -Increasing sodium has maintained around 10 allowing patient to take p.o. intake and discontinued DDAVP -Continue every 6 hour BMPs Acute kidney injury: ATN: Significant improvement Hyperkalemia: Resolved ID: Possible sepsis of unclear etiology -Broad-spectrum antibiotics adjusted for kidney function: Daptomycin every 48 hours Zosyn every 12 hours -Remains afebrile, no leukocytosis anticipate discontinuing antibiotics tomorrow morning GI/Nutrition: Enterocutaneous fistula -Wound consult: VAC changed -Patient requesting transfer to [facility] who is familiar with the patient and his surgical team Heme: Anemia: Believe the patient was extremely hemoconcentrated yesterday and he appears near his baseline DVT prophylaxis: Heparin 5000 units every 8 hours Endocrine: ICU hyperglycemia protocol Vascular access: Poor vascular access, right femoral line placed in the emergency department. -PICC versus midline placement Code Status: Full Disposition: ICU for frequent BMP and electrolyte management, Discussed with Dr. Gonzalez: [facility] triage officer, will follow-up if bed becomes available 10:15: Updated from [facility], they are not accepting patient request transfer at this time to capacity limitations of [facility]. I requested they keep the patient on a transfer wait list. Advised we may stabilize the patient out of ICU level care and given patient's desire for transfer there will additional capacity at a lower level of care. (2) Abdominal pain: (3) Crohn disease: (4) Enterocutaneous fistula: (5) Hyponatremia: (6) Sepsis: (7) Weakness: (8) Dehydration: Admission and Anticipated Discharge Date Admission Date: June 28, 2023 Supervising Physician Co-Signing Physician Notes I have personally spent 45 minutes of critical care time in the direct management of this patient. This is a life/limb threatening event. This includes time spent evaluating patient, direct bedside care, chart review, placing orders, interpretation of diagnostic studies, discussion with consultants, patient, and/or family members regarding treatment decisions, as well as other required patient management activities. This time is exclusive of all separately billable procedures, and teaching time and separate from and in addition to any other critical care service time. Subjective Feels better than yesterday, no overnight events. Still desires to go to [facility] for further evaluation of enterocutaneous drainage Review of Systems Review of Systems: Denies fevers or chills Physical Exam Physical Exam: General: Alert. nontoxic. Skin: Warm, dry, Head: Atraumatic Ears, nose, mouth and throat: airway patent Cardiovascular: Normal peripheral perfusion Respiratory: no respiratory distress : Salazar present with clear urine in bag Gastrointestinal: Ileostomy present with scant stool in bag, wound VAC changed Musculoskeletal: No deformity Results & Data Results & Data Vital Signs (Past 12 Hours) Vital Signs Temp Pulse Pulse Resp BP BP Pulse Ox 06/29/23 08:00 70 14 100/49 L 100 06/29/23 07:55 70 06/29/23 07:30 73 12 101/53 L 100 06/29/23 07:30 72 14 100 06/29/23 07:00 72 12 101/53 L 96 06/29/23 06:45 70 10 L 97 06/29/23 06:30 70 97 06/29/23 06:30 109/56 L 06/29/23 06:00 86 23 98 06/29/23 06:00 82/71 L 06/29/23 05:30 68 17 96 06/29/23 05:30 97/50 L 06/29/23 05:00 72 12 102/55 L 97 06/29/23 04:30 77 14 93/50 L 97 06/29/23 04:27 37 C 06/29/23 04:00 70 15 97/47 L 96 06/29/23 03:30 73 13 98/57 L 98 06/29/23 03:00 77 17 98 06/29/23 03:00 105/58 L 06/29/23 02:30 72 12 95/49 L 96 06/29/23 02:00 72 14 98/50 L 96 06/29/23 01:45 101/49 L 06/29/23 01:45 73 12 96 06/29/23 01:30 71 14 97 06/29/23 01:30 107/56 L 06/29/23 01:15 74 14 92 06/29/23 01:15 110/59 L 06/29/23 01:00 68 16 97 06/29/23 01:00 100/56 L 06/29/23 00:45 68 17 97 06/29/23 00:45 103/56 L 06/29/23 00:30 70 12 96 06/29/23 00:30 99/51 L 06/29/23 00:21 37.2 C 06/29/23 00:15 71 96 06/29/23 00:15 97/53 L 06/29/23 00:00 73 12 96 06/29/23 00:00 99/49 L 06/28/23 23:45 77 15 96 06/28/23 23:45 109/51 L 06/28/23 23:30 77 13 95 06/28/23 23:30 95/50 L 06/28/23 23:15 69 13 99 06/28/23 23:15 110/58 L 06/28/23 23:00 81 16 96 06/28/23 23:00 100/49 L 06/28/23 22:49 78 06/28/23 22:45 83 13 95 06/28/23 22:45 98/46 L 06/28/23 22:00 85 12 95 06/28/23 22:00 99/48 L O2 Del Method 06/29/23 08:00 06/29/23 07:55 06/29/23 07:30 06/29/23 07:30 06/29/23 07:00 06/29/23 06:45 06/29/23 06:30 06/29/23 06:30 06/29/23 06:00 06/29/23 06:00 06/29/23 05:30 06/29/23 05:30 06/29/23 05:00 Room Air 06/29/23 04:30 Room Air 06/29/23 04:27 06/29/23 04:00 Room Air 06/29/23 03:30 Room Air 06/29/23 03:00 Room Air 06/29/23 03:00 06/29/23 02:30 Room Air 06/29/23 02:00 Room Air 06/29/23 01:45 06/29/23 01:45 Room Air 06/29/23 01:30 Room Air 06/29/23 01:30 06/29/23 01:15 Room Air 06/29/23 01:15 06/29/23 01:00 Room Air 06/29/23 01:00 06/29/23 00:45 Room Air 06/29/23 00:45 06/29/23 00:30 Room Air 06/29/23 00:30 06/29/23 00:21 06/29/23 00:15 Room Air 06/29/23 00:15 06/29/23 00:00 Room Air 06/29/23 00:00 06/28/23 23:45 Room Air 06/28/23 23:45 06/28/23 23:30 Room Air 06/28/23 23:30 06/28/23 23:15 Room Air 06/28/23 23:15 06/28/23 23:00 Room Air 06/28/23 23:00 06/28/23 22:49 06/28/23 22:45 Room Air 06/28/23 22:45 06/28/23 22:00 Room Air 06/28/23 22:00 Critical Care Results & Data Vital Signs (Past 12 Hours) Vital Signs Pulse Pulse Resp BP BP Pulse Ox O2 Del Method 06/29/23 11:03 70 06/29/23 08:00 70 14 100/49 L 100 06/29/23 07:55 70 06/29/23 07:30 73 12 101/53 L 100 06/29/23 07:30 72 14 100 06/29/23 07:00 72 12 101/53 L 96 06/29/23 06:45 70 10 L 97 06/29/23 06:30 70 97 06/29/23 06:30 109/56 L 06/29/23 06:00 86 23 98 06/29/23 06:00 82/71 L 06/29/23 05:30 68 17 96 06/29/23 05:30 97/50 L 06/29/23 05:00 72 12 102/55 L 97 Room Air Lab & Micro Results (Past 24 Hours) RBC 3.57 M/uL (4.70-6.10) L 06/29/23 WBC 9.27 K/ul (4.8-10.8) 06/29/23 Hgb 9.9 g/dl (14.0-18.0) L 06/29/23 Hct 29.2 % (42.0-52.0) L 06/29/23 MCV 81.8 fL (80.0-100.0) 06/29/23 MCH 27.7 pg (25.0-34.0) 06/29/23 MCHC 33.9 g/dL (32.0-36.0) 06/29/23 RDW Standard Deviation 47.4 fL (36.4-46.3) H 06/29/23 RDW Coefficient of Variation 15.7 % (11.5-14.5) H 06/29/23 Plt Count 359 K/uL (130-400) 06/29/23 MPV 10.1 fL (9.4-12.4) 06/29/23 Neutrophils (%) (Auto) 59.1 % 06/29/23 Lymphocytes (%) (Auto) 18.0 % 06/29/23 Monocytes # (Auto) 1.83 K/uL (0.11-0.59) H 06/29/23 Eosinophils # (Auto) 0.17 K/uL (0.00-0.50) 06/29/23 Immature Granulocyte % (Auto) 0.5 % 06/29/23 Neutrophils # (Auto) 5.47 K/uL (1.40-6.50) 06/29/23 Lymphocytes # (Auto) 1.67 K/uL (1.20-3.40) 06/29/23 Monocytes # (Auto) 1.83 K/uL (0.11-0.59) H 06/29/23 Eosinophils # (Auto) 0.17 K/uL (0.00-0.50) 06/29/23 Basophils # (Auto) 0.08 K/uL (0.00-0.20) 06/29/23 Immature Granulocyte # (Auto) 0.05 K/uL (0.01-0.20) 3 Na 118 mmol/L (136-145) L* 06/29/23 K 4.3 mmol/L (3.5-5.1) 06/29/23 Cl 88 mmol/L (98-107) L 06/29/23 CO2 19 mmol/L (21-32) L 06/29/23 Anion Gap 11 (3-11) 06/29/23 BUN 65 mg/dl (6-23) H 06/29/23 Creatinine 6.81 mg/dl (0.6-1.4) H* 06/29/23 Estimated GFR ( Amer) 11.2 ml/min 06/29/23 Estimated GFR (Non-Af Amer) 9.7 ml/min 06/29/23 BUN/Creatinine Ratio 9.5 (10-20) L 06/29/23 Glu 125 mg/dl (70-99(Fasting)) H 06/29/23 Ca 8.6 mg/dl (8.6-10.3) 06/29/23 Phosphorus Level 6.6 mg/dl (2.5-4.9) H 06/29/23 Total Bilirubin 1.1 mg/dl (0.2-1.0) H 06/29/23 Direct Bilirubin 0.6 mg/dl (0-0.2) H 06/29/23 AST 11 U/L (13-39) L 06/29/23 ALT 8 U/L (7-52) 06/29/23 Alkaline Phosphatase 272 U/L (34-104) H 06/29/23 TP 7.1 gm/dl (6.0-8.3) 06/29/23 Albumin 3.2 gm/dl (3.4-5.0) L 06/29/23 Mg 2.3 mg/dl (1.7-2.4) 06/29/23 10:31 Calcium Level 8.6 mg/dl (8.6-10.3) 06/29/23 10:31 Ionized Calcium 1.17 mmol/L (1.12-1.32) 06/29/23 10:31 Prothromb Time International Ratio 1.1 (0.9-1.1) 06/29/23 04:0 4 I & O Totals 24 Hours 06/28/23 06/29/23 06/30/23 06:59 06:59 06:59 Intake Total 3747.310 / 3747.310 775.559 / 775.559 Output Total 1625 / 1625 Balance 2122.310 / 2122.310 775.559 / 775.559 Cumulative 06/28/23 10:54 thru 06/29/23 14:24 Intake Total 4522.869 Output Total 1625 Balance 2897.869 RT Ventilator Mngmt (Last Documented) Ventilator Ordered Settings Respiratory Rate 14 06/29/23 08:00 Ventilator - PT Measurements Respiratory Rate 14 Coding Level of Care Code 45711 CRITICAL CARE 1ST 30-74M Diagnoses Acute renal failure with tubular necrosis N17.0 Acute renal failure type: with acute tubular necrosis Generalized abdominal pain R10.84 Abdominal location: generalized Crohn disease K50.018 Digestive disease complication type: other complication Gastrointestinal tract location: small intestine Enterocutaneous fistula K63.2 Hyponatremia E87.1 Sepsis with acute renal failure and tubular necrosis without septic shock, due to unspecified organism A41.9; R65.20; N17.0 Acute renal failure type: with acute tubular necrosis Sepsis acute organ dysfunction status: with acute organ dysfunction Sepsis type: sepsis due to unspecified organism Severe sepsis acute organ dysfunction type: acute renal failure Severe sepsis shock status: without septic shock Weakness R53.1 Dehydration E86.0 (1) Acute kidney failure Acute renal failure type: with acute tubular necrosis Qualified Code(s): N17.0 - Acute kidney failure with tubular necrosis (2) Abdominal pain Abdominal location: generalized Qualified Code(s): R10.84 - Generalized abdominal pain (3) Crohn disease Digestive disease complication type: other complication Gastrointestinal tract location: small intestine Qualified Code(s): K50.018 - Crohn's disease of small intestine with other complication (6) Sepsis Acute renal failure type: with acute tubular necrosis Sepsis acute organ dysfunction status: with acute organ dysfunction Sepsis type: sepsis due to unspecified organism Severe sepsis acute organ dysfunction type: acute renal failure Severe sepsis shock status: without septic shock Qualified Code(s): A41.9 - Sepsis, unspecified organism; R65.20 - Severe sepsis without septic shock; N17.0 - Acute kidney failure with tubular necrosis
[2023-06-29] MEDS: ALBUMIN 25% 25 GM/100 ML VIAL IV SCH ×2 (10:22→11:33)
[2023-06-29 11:11] LABS: BUN Creatinine Ratio 9.5 (10-20); Calcium 8.6 mg/dl (8.6-10.3); Creatinine Clr Calc Pharmacy 16.3 ml/min; Est GFR (African American) 11.2 ml/min; Est GFR (Non-African American) 9.7 ml/min; Magnesium 2.3 mg/dl (1.7-2.4); Phosphorus 6.6 mg/dl (2.5-4.9); Potassium 4.3 mmol/L (3.5-5.1)
--- NOTE | 2023-06-29 11:20 | Nephrology Consultation ---
Date of Consultation June 29, 2023 Assessment & Plan (1) Acute kidney failure: Severe acute renal failure on presentation with a creatinine of 13 with a baseline of 1. However since being admitted with the use of IV fluid and necessary medical stabilization his renal function is improving very rapidly. He is making urine and creatinine is already down to 6 in less than 12-hour time. Continue IV fluids and medical management does not need dialysis and I expect his kidney function to recover completely in the coming days. But given his current status of the GI tract with ileostomy multiple fistula Crohn's disease he is at a very high risk of developing prerenal type acute renal failure intermittently. No further work-up for acute renal failure is needed as he is improving very rapidly (2) Acute hyponatremia: Hypovolemic hyponatremia in the setting of ileostomy nausea vomiting increase output and poor oral intake. Sodium was 110 and went up really fast with just use of normal saline. Since then has stabilized after use of desmopressin to 118. We can start using isotonic saline again--with frequent BMP check. Consider every 6 hour BMP. Aim for rate of correction of about 10 in the 24-hour time. He might overcorrect in which case D5/vasopressin can be used to reverse fast correction. Plan Case complexity high. Case was discussed with pot filler and hospitalist. 55-minute spent History of Present Illness Attending Physician: Elena Gupta, History of Present Illness 32/M with longstanding complicated Crohn's disease s/p colectomy with permanent ileostomy, alcohol abuse, H/O narcotic abuse currently on Suboxone who presented to ER with not feeling good lightheadedness hypertension poor appetite for the last few days . Found to have severe hyponatremia with a sodium of 110 creatinine of 13 potassium of 6.1 . He was very hypotensive and overnight has received IV fluid--normal saline Ringer lactate albumin. With that sodium improved very fast 220 after which he received some doses of desmopressin. Now sodium is 118. Creatinine is dropping very fast and is already down to 6 in about 12 hours time. He is making increasing amount of urine . Blood pressure still borderline low and he is on Levophed albumin and IV fluid He had prolonged hospitalization at [facility]. he was initially admitted for sepsis in setting of perforated duodenal ulcer. He required stent placement and complicated abscesses status post IR drainage and Stent migration. He did complete course of IV antibiotics. CT imaging revealed no further progression of duodenal stent migration. Patient at that time refused further EGDs to retrieve the stent. Since being discharged home he has had to maintain an open abdomen wound in setting of enterocutaneous fistula requiring wound care. He has had increased drainage from abdominal wound with bloody drainage. He also has a colostomy bag draining bloody discharge as well. he was complaining of being dizzy over the last few days. No fever, but patient has intermittent shakes. Over the last 2 days he also had nausea and vomiting as well as increased ileostomy output. Also was not urinating at home for the last few days. He was started on broad spectrum antibiotics and hospitalist service as well as pot filler was consulted for admission. [facility] [place] [facility] [place]; however there is no bed availability at this time and this will be revisited pending call from [facility] Review of systems--- as detailed in HPI. Unless stated otherwise 12 systems reviewed and negative Allergies Allergy/AdvReac Type Severity Reaction Status Date / Time Fish Containing Products Allergy Verified 06/29/23 09:35 fish derived Allergy Verified 06/29/23 09:35 fish oil Allergy Verified 06/29/23 09:35 shellfish derived Allergy Verified 06/29/23 09:35 adalimumab [From Humira] AdvReac Severe CONVULSIONS Verified 06/28/23 15:26 infliximab [From Remicade] AdvReac Severe CONVULSIONS Verified 06/28/23 15:26 methotrexate AdvReac Severe CONVULSIONS Verified 06/28/23 15:26 SEAFOOD AdvReac Intermediate BLOATING/GAS Uncoded 06/28/23 15:26 DISCOMFORT Home Medications Medication Instructions Recorded Confirmed Type buprenorphine 8 mg-naloxone 2 mg 2 tab sublingual DAILY 06/22/22 06/28/23 History sublingual tablet pantoprazole 40 mg tablet,delayed 40 mg PO AMHS 06/22/22 06/28/23 History release diclofenac sodium 75 mg 75 mg PO BID 08/02/22 06/28/23 History tablet,delayed release folic acid 1 mg tablet 1 mg PO QAM 08/02/22 06/28/23 History mecobalamin (vitamin B12) 1,000 1,000 mcg PO QAM 08/02/22 06/28/23 History mcg chewable tablet tadalafil 5 mg tablet 5 mg PO DAILY PRN Erectile 08/02/22 06/28/23 History Dysfunction thiamine mononitrate (vit B1) 100 100 mg PO QAM 08/02/22 06/28/23 History mg tablet gabapentin 300 mg capsule 300 mg PO TID 04/07/23 06/28/23 History Patient History Medical History Narcotic abuse Tobacco use Alcohol abuse Acute anxiety Depression Arthritis Crohn disease Surgical History History of wisdom tooth extraction History of knee surgery Bilateral knee scopes History of hernia surgery History of colon surgery Family History Other Diabetes Social History Smoking Status: Current every day smoker Tobacco Type: Cigarettes Cigarettes Per Day: 1/2 pack of cigarettes; Second Hand Exposure: Yes; Do You Dip or Chew Tobacco: No; Hx Alcohol Use: No Hx Substance Use: Yes Prescribed Medications: Former Misuse of Rx Meds Non- Prescribed Medications: Marijuana Last Used Substance Other:: 06/28/2023 Substance Use Type Other:: suboxone Preferred Language: Citizen Of [place] Communication Ability: Effective Monomer Recovery Operator Required: No Beliefs That Will Affect Care: None Current Living Situation: Significant Other Other Information That Helps Us Care for You: No Feels Safe at Home: Yes Safety Concerns: Feels Safe At This Time Assistive Devices: Cane, Walker and Wheelchair Physical Exam Physical Exam: Young white male who is not in any overt respiratory distress she is awake alert oriented x3. Constitutional: Mucous membrane is dry neck is supple no JVD Neck: Neck is supple no JVD Respiratory: Bilateral clear to auscultation Cardiovascular: S1 and S2 regular no murmur rub or gallop Gastrointestinal (Abdomen): Diffusely tender with ileostomy bag in drains. Skin: No rashes noted Psychiatric: Tearful and says he cannot manage his all his health problems at this very young age Results & Data Vital Signs (Past 12 Hours) Vital Signs Temp Pulse Pulse Resp BP BP Pulse Ox 06/29/23 11:03 70 06/29/23 08:00 70 14 100/49 L 100 06/29/23 07:55 70 06/29/23 07:30 73 12 101/53 L 100 06/29/23 07:30 72 14 100 06/29/23 07:00 72 12 101/53 L 96 06/29/23 06:45 70 10 L 97 06/29/23 06:30 70 97 06/29/23 06:30 109/56 L 06/29/23 06:00 86 23 98 06/29/23 06:00 82/71 L 06/29/23 05:30 68 17 96 06/29/23 05:30 97/50 L 06/29/23 05:00 72 12 102/55 L 97 06/29/23 04:30 77 14 93/50 L 97 06/29/23 04:27 37 C 06/29/23 04:00 70 15 97/47 L 96 06/29/23 03:30 73 13 98/57 L 98 06/29/23 03:00 77 17 98 06/29/23 03:00 105/58 L 06/29/23 02:30 72 12 95/49 L 96 06/29/23 02:00 72 14 98/50 L 96 06/29/23 01:45 101/49 L 06/29/23 01:45 73 12 96 06/29/23 01:30 71 14 97 06/29/23 01:30 107/56 L 06/29/23 01:15 74 14 92 06/29/23 01:15 110/59 L 06/29/23 01:00 68 16 97 06/29/23 01:00 100/56 L 06/29/23 00:45 68 17 97 06/29/23 00:45 103/56 L 06/29/23 00:30 70 12 96 06/29/23 00:30 99/51 L 06/29/23 00:21 37.2 C 06/29/23 00:15 71 96 06/29/23 00:15 97/53 L 06/29/23 00:00 73 12 96 06/29/23 00:00 99/49 L 06/28/23 23:45 77 15 96 06/28/23 23:45 109/51 L 06/28/23 23:30 77 13 95 06/28/23 23:30 95/50 L O2 Del Method 06/29/23 11:03 06/29/23 08:00 06/29/23 07:55 06/29/23 07:30 06/29/23 07:30 06/29/23 07:00 06/29/23 06:45 06/29/23 06:30 06/29/23 06:30 06/29/23 06:00 06/29/23 06:00 06/29/23 05:30 06/29/23 05:30 06/29/23 05:00 Room Air 06/29/23 04:30 Room Air 06/29/23 04:27 06/29/23 04:00 Room Air 06/29/23 03:30 Room Air 06/29/23 03:00 Room Air 06/29/23 03:00 06/29/23 02:30 Room Air 06/29/23 02:00 Room Air 06/29/23 01:45 06/29/23 01:45 Room Air 06/29/23 01:30 Room Air 06/29/23 01:30 06/29/23 01:15 Room Air 06/29/23 01:15 06/29/23 01:00 Room Air 06/29/23 01:00 06/29/23 00:45 Room Air 06/29/23 00:45 06/29/23 00:30 Room Air 06/29/23 00:30 06/29/23 00:21 06/29/23 00:15 Room Air 06/29/23 00:15 06/29/23 00:00 Room Air 06/29/23 00:00 06/28/23 23:45 Room Air 06/28/23 23:45 06/28/23 23:30 Room Air 06/28/23 23:30 Laboratory Results Extensively reviewed. At baseline his creatinine is pretty much normal admission creatinine was 13 but is trending down fast and is already down to 6 Sodium 110 on admission went up quickly to 120 but now stabilized and is now 118 (1) Acute kidney failure Acute renal failure type: with acute tubular necrosis Qualified Code(s): N17.0 - Acute kidney failure with tubular necrosis
[2023-06-29] MEDS ORDERED: HYDROmorphone INJ 1 MG/ML SYRINGE IV STA (13:28)
--- NOTE | 2023-06-29 14:22 | Hospitalist Progress Note ---
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 Hospitalized at [facility] 04/08-05/26/23 2/2 perforated duodenum s/p extensive abd surgeries and intraabdominal abscesses now with open abdominal wound and enterocutaneous fistula. Also with known duodenal stent migration that patient refused to have repeat EGD for retrieval. Per discussion with corporate strategy associate plan is to transfer the patient pending bed availability. Currently [facility] ICU does not have beds, but will remain in contact with [facility] when possible bed available. Possible Sepsis -meets criteria in setting of leukocytosis, hypotension Enterocutaneous fistula s/p multiple abd surgeries hx of Crohn's disease s/p proctocolectomy and end ileostomy pt with increased bloody drainage to wound now leaking out around the ostomy bag and causing increased redness,excoriation and tenderness cont ICU care, now requiring norepinephrine for support Plan for broad spectrum antibiotics with Dapto/Zosyn due to possible sepsis pending culture results and clinical improvement. wound care consulted, consider gen surg consult while pt in house and pt wish to be transferred to [facility] where patient is known to them as we also do not carry his wound supplies Currently ICU transfer requested with beds unavailable. Cont ICU support on site and update [facility] daily. MELISSA Hyperkalemia Acute Hyponatremia likely in setting of pre renal acute kidney injury vs ATN insetting of hypotension bun 77, cr 11.3; baseline 0.5 serial labs, DDAVP ordered x 2 per corporate strategy associate creatinine improving, making urine more now nephrology following and notes there is an increased risk of intermittent renal failure given ongoing draininage from ostomy site. Na is improved with use of saline-->desmopressin required. Restarting NSS per nephro today Chronic Pain pt on Suboxone therapy, continued per ICU pt also uses medical marijuana WOCN for assistance with topical support for excoriated area on lower abdomen. Tobacco abuse nicotine patch ordered cessation advised Previous alcohol abuse abstinent for 2 months reports history of peripheral neuropathy for this issue continue folic acid/thiamine and B12 supplementation as ordered. Lines: R femoral line placed in ED Salazar Catheter placed in ED draining dark/kathy urine FULL CODE DVT ppx: Heparin per corporate strategy associate PCP: Zion Dispo-cont ICU care. I spent a total of 60minutes coordinating, documenting, and providing care for this patient excluding time spent in the performance of separately billed services Elena Gupta DO [facility] Hospitalist Admission and Anticipated Discharge Date Admission Date: June 28, 2023 Subjective 32-year-old man with history of Crohn's disease status post colectomy with permanent ileostomy, alcohol abuse, history of narcotic abuse currently on Suboxone and tobacco abuse presents with electrolyte abnormalities. Admitted to ICU. Today he is reporting significant pain and excoriated area around his ostomy There is a blood-tinged drainage coming from his ostomy that is leaking out onto his abdomen Abdomen is tender to palpation but not distended Patient is improved from yesterday per his report Spouse is at bedside and assists with history He is tolerating clears without much difficulty. Creatinine is improved today. He does report feeling the movement of the stented area of duodenum in his abdomen. Physical Exam Physical Exam: CONSTITUTIONAL: WNWD, vitals as above, generally well-appearing, mild distress 2/2 discomfort from skin EYES: EOMI bilaterally, PERRL, normal conjunctivae, no scleral icterus ENT: external ear and nose normal, MMM NECK: trachea midline RESPIRATORY: clear to auscultation bilaterally, no crackles, rales or wheezes, normal respiratory effort CARDIOVASCULAR: regular rate and rhythm, S1 and 2 heard without murmurs, gallops or rubs, no JVD, no peripheral edema CHEST: inspection of chest was normal GASTROINTESTINAL: soft, generalized nonfocal TTP, with increased discomfort on excoriated area of lower abdomen outside of ostomy bag, blood-tinged drainage in ostomy bag present, ND, no guarding MUSCULOSKELETAL: strength 5/5 throughout, head is normocephalic and atraumatic SKIN: warm and dry NEUROLOGIC: CN 2-12 grossly intact, no sensory deficit, normal cognition, normal speech, no tremor PSYCHIATRIC: alert cooperative and oriented to person, place and time. Euthymic mood, makes good eye contact, language grossly intact, recent and remote memory grossly intact. Results & Data Results & Data Vital Signs (Past 12 Hours) Vital Signs Temp Pulse Pulse Resp BP BP Pulse Ox 06/29/23 11:03 70 06/29/23 08:00 70 14 100/49 L 100 06/29/23 07:55 70 06/29/23 07:30 73 12 101/53 L 100 06/29/23 07:30 72 14 100 06/29/23 07:00 72 12 101/53 L 96 06/29/23 06:45 70 10 L 97 06/29/23 06:30 70 97 06/29/23 06:30 109/56 L 06/29/23 06:00 86 23 98 06/29/23 06:00 82/71 L 06/29/23 05:30 68 17 96 06/29/23 05:30 97/50 L 06/29/23 05:00 72 12 102/55 L 97 06/29/23 04:30 77 14 93/50 L 97 06/29/23 04:27 37 C 06/29/23 04:00 70 15 97/47 L 96 06/29/23 03:30 73 13 98/57 L 98 06/29/23 03:00 77 17 98 06/29/23 03:00 105/58 L 06/29/23 02:30 72 12 95/49 L 96 O2 Del Method 06/29/23 11:03 06/29/23 08:00 06/29/23 07:55 06/29/23 07:30 06/29/23 07:30 06/29/23 07:00 06/29/23 06:45 06/29/23 06:30 06/29/23 06:30 06/29/23 06:00 06/29/23 06:00 06/29/23 05:30 06/29/23 05:30 06/29/23 05:00 Room Air 06/29/23 04:30 Room Air 06/29/23 04:27 06/29/23 04:00 Room Air 06/29/23 03:30 Room Air 06/29/23 03:00 Room Air 06/29/23 03:00 06/29/23 02:30 Room Air Laboratory Results Short CBC 06/29/23 Range/Units 04:04 WBC 9.27 (4.8-10.8) K/ul Hgb 9.9 L D (14.0-18.0) g/dl Hct 29.2 L (42.0-52.0) % Plt Count 359 (130-400) K/uL BMP 06/28/23 06/28/23 06/28/23 14:30 18:39 19:17 Sodium 116 L* 118 L* 118 L* Potassium 5.1 5.0 5.1 Chloride 88 L 87 L 87 L Carbon Dioxide 17 L 17 L 17 L BUN 77 H 75 H 74 H Creatinine 11.30 H* D 10.50 H* D 10.31 H* Glucose 78 73 75 Calcium 8.3 L 8.5 L 8.6 06/28/23 06/29/23 06/29/23 22:35 04:04 10:31 Sodium 118 L* 119 L* 118 L* Potassium 4.9 4.5 4.3 Chloride 87 L 87 L 88 L Carbon Dioxide 17 L 17 L 19 L BUN 73 H 70 H 65 H Creatinine 9.25 H* D 8.49 H* D 6.81 H* D Glucose 92 105 H 125 H Calcium 8.4 L 8.4 L 8.6 Liver Function 06/29/23 Range/Units 04:04 Total Bilirubin 1.1 H (0.2-1.0) mg/dl Direct Bilirubin 0.6 H (0-0.2) mg/dl AST 11 L (13-39) U/L ALT 8 (7-52) U/L Alkaline Phosphatase 272 H (34-104) U/L Albumin 3.2 L (3.4-5.0) gm/dl Medications Administered Current Inpatient Medications Buprenorphine/Naloxone (Buprenorphine/Naloxone 8/2 Mg Tab) 2 tab SL DAILY [facility] Stop: 07/29/23 08:59 Last Admin: 06/29/23 09:02 Dose: 2 tab Cyanocobalamin (Cyanocobalamin (B-12) 500 Mcg Tablet) 1,000 mcg PO DAILY [facility] Stop: 07/29/23 08:59 Last Admin: 06/29/23 09:00 Dose: 1,000 mcg Folic Acid (Folic Acid 1 Mg Tab) 1 mg PO DAILY [facility] Stop: 07/29/23 08:59 Last Admin: 06/29/23 09:00 Dose: 1 mg Heparin Sodium (Porcine) (Heparin Sod 5,000 Unit/0.5 Ml Vial) 5,000 units SQ Q8 [facility] Stop: 07/28/23 21:59 Last Admin: 06/29/23 05:56 Dose: 5,000 units Hydromorphone HCl (Hydromorphone Inj 0.5 Mg/0.5 Ml Syr) 0.5 mg IV Q4H PRN PRN Reason: Pain Stop: 07/12/23 16:37 Last Admin: 06/29/23 10:11 Dose: 0.5 mg Daptomycin 475 mg/ Syringe 9.5 mls @ 4.75 mls/min IV Q48H [facility]; Protocol Stop: 07/10/23 12:59 Piperacillin Sod/Tazobactam (Sod 4.5 gm/ Dextrose) 100 mls @ 25 mls/hr IV Q12H [facility]; Protocol Stop: 07/08/23 21:44 Last Infusion: 06/29/23 12:33 Dose: Infused Desmopressin Acetate 2 mcg/ (Sodium Chloride) 50.5 mls @ 100 mls/hr IV Q8H [facility] Stop: 07/28/23 23:29 Last Infusion: 06/29/23 08:59 Dose: Infused Norepinephrine Bitartrate (Levophed/D5w) 4 mg in 250 mls @ 41.288 mls/hr IV .Q6H4M [facility]; Protocol Stop: 07/28/23 18:29 Last Admin: 06/29/23 10:37 Dose: Not Given Miscellaneous (Icu Protocol For Hyperglycemia) 1 each N/A ACHS [facility] Stop: 06/30/23 16:37 Last Admin: 06/29/23 11:33 Dose: 1 each Miscellaneous (Remove Nicoderm Patch) 1 each N/A DAILY@0859 [facility] Stop: 07/29/23 08:58 Last Admin: 06/29/23 09:01 Dose: 1 each Nicotine (Nicotine 21 Mg/24 Hr Tdsy) 21 mg TD QAM [facility] Stop: 07/28/23 16:37 Last Admin: 06/29/23 09:00 Dose: 21 mg Pantoprazole Sodium (Pantoprazole 40 Mg Tab) 40 mg PO AMHS [facility] Stop: 07/28/23 20:59 Last Admin: 06/29/23 09:00 Dose: 40 mg Thiamine HCl (Thiamine Hcl 100 Mg Tab) 100 mg PO DAILY [facility] Stop: 07/29/23 08:59 Last Admin: 06/29/23 09:00 Dose: 100 mg (2) Acute kidney failure Acute renal failure type: with acute tubular necrosis Qualified Code(s): N17.0 - Acute kidney failure with tubular necrosis
[2023-06-29 17:54] LABS: BUN Creatinine Ratio 10.3 (10-20); Calcium 8.6 mg/dl (8.6-10.3); Est GFR (African American) 14.4 ml/min; Est GFR (Non-African American) 12.4 ml/min; Magnesium 2.1 mg/dl (1.7-2.4); Phosphorus 6.4 mg/dl (2.5-4.9); Potassium 3.6 mmol/L (3.5-5.1)
[2023-06-29 23:23] LABS: BUN Creatinine Ratio 11.7 (10-20); Calcium 8.7 mg/dl (8.6-10.3); Creatinine Clr Calc Pharmacy 24.9 ml/min; Est GFR (African American) 18.7 ml/min; Est GFR (Non-African American) 16.1 ml/min; Potassium 3.7 mmol/L (3.5-5.1)
[2023-06-30] MEDS: NOREPINEPHRINE/D5W 4 MG/250 ML PLCT IV SCH ×4 (00:36→13:21)
[2023-06-30] MEDS: MELATONIN 3 MG TAB PO PRN ×2 (00:37→22:10)
[2023-06-30] MEDS: HYDROmorphone INJ 0.5 MG/0.5 ML SYR IV PRN ×3 (04:03→23:46)
[2023-06-30 04:20] LABS: Basophils # (auto) 0.06 K/uL (0.00-0.20); Basophils % (auto) 0.9 %; Eosinophils # (auto) 0.33 K/uL (0.00-0.50); Eosinophils % (auto) 5.1 %; Hematocrit (blood only) 27.7 % (42.0-52.0); Hemoglobin 9.1 g/dl (14.0-18.0); Immature Granulocytes # (auto) 0.03 K/uL (0.01-0.20); Immature Granulocytes % (auto) 0.5 %; Lymphocytes # (auto) 1.47 K/uL (1.20-3.40); Lymphocytes % (auto) 22.9 %; Mean Corpuscular Hgb Conc 32.9 g/dL (32.0-36.0); Mean Corpuscular Volume 82.2 fL (80.0-100.0); Mean Platelet Volume 9.4 fL (9.4-12.4); Monocytes # (auto) 1.45 K/uL (0.11-0.59); Monocytes % (auto) 22.6 %; Neutrophils # (auto) 3.07 K/uL (1.40-6.50); Platelet Count 305 K/uL (130-400); RDW Coefficient of Variation 15.7 % (11.5-14.5); RDW Standard Deviation 47.6 fL (36.4-46.3); Red Blood Count 3.37 M/uL (4.70-6.10); White Blood Count 6.41 K/ul (4.8-10.8)
[2023-06-30 04:28] LABS: BUN Creatinine Ratio 12.1 (10-20); Calcium 8.9 mg/dl (8.6-10.3); Creatinine Clr Calc Pharmacy 30.5 ml/min; Est GFR (African American) 23.9 ml/min; Est GFR (Non-African American) 20.6 ml/min; Magnesium 1.8 mg/dl (1.7-2.4); Phosphorus 5.2 mg/dl (2.5-4.9); Potassium 3.5 mmol/L (3.5-5.1)
[2023-06-30] MEDS: POTASSIUM CHLORIDE / WTR 10 MEQ/100 ML PLCT IV SCH ×3 (06:28→08:42)
[2023-06-30] MEDS: MAGNESIUM SULFATE / D5W 1 GM/100 ML BAG IV SCH ×2 (06:29→08:20)
[2023-06-30] MEDS: HEPARIN SOD 5,000 UNIT/0.5 ML VIAL SQ SCH ×3 (06:42→22:10)
[2023-06-30] MEDS: ICU Protocol for HYPERglycemia SCH ×3 (07:39→16:35)
--- NOTE | 2023-06-30 07:45 | Hospitalist Progress Note ---
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 Hospitalized at [facility] 04/08-05/26/23 2/2 perforated duodenum s/p extensive abd surgeries and intraabdominal abscesses now with open abdominal wound and enterocutaneous fistula. Also with known duodenal stent migration that patient refused to have repeat EGD for retrieval. Per discussion with benzene still utility operator plan is to transfer the patient pending bed availability. Currently [facility] ICU does not have beds, but will remain in contact with [facility] when possible bed available. Possible Sepsis -meets criteria in setting of leukocytosis, hypotension Enterocutaneous fistula s/p multiple abd surgeries hx of Crohn's disease s/p proctocolectomy and end ileostomy pt with increased bloody drainage to wound now leaking out around the ostomy bag and causing increased redness,excoriation and tenderness cont ICU care, now requiring norepinephrine for support Broad-spectrum antibiotics with daptomycin and Zosyn empirically given due to possible sepsis, and these have been stopped. Wound care continues to see patient. Note reviewed that they are looking to understand what supply works for him at home, however, patient and state th at nothing helps in particular. did bring in a home ostomy dressing to show staff here for possible order. Patient and wish to be transferred to [facility], which is still pending. MELISSA Hyperkalemia Acute Hyponatremia likely in setting of pre renal acute kidney injury vs ATN insetting of hypotension with ongoing draining EC fistula. bun 77, cr 11.3; baseline 0.5 serial labs, DDAVP ordered x 2 per benzene still utility operator creatinine improving to 2.6 today, making urine more now nephrology following and notes there is an increased risk of intermittent renal failure given ongoing drainage from ostomy site. Na is improved with use of saline-->desmopressin required. Na is 128 today, cont clear liquids PO as tolerated. He is still requiring norepinephrine but off IVF. Trend BMP in am. Chronic Pain pt on Suboxone therapy, continued per ICU pt also uses medical marijuana Now receiving dilaudid 0.5mg IV q4h-->pt became upset when this was decreased to q8h and reports severe pain. Added oral oxycodone to see if this would offer more consistent pain control and lessen the need for the dilaudid. WOCN for assistance with topical support for excoriated area on lower abdomen. consulted Pain managment. Tobacco abuse nicotine patch ordered cessation advised Previous alcohol abuse abstinent for 2 months reports history of peripheral neuropathy for this issue continue folic acid/thiamine and B12 supplementation as ordered. Lines: R femoral line placed in ED Salazar Catheter placed in ED draining dark/kathy urine FULL CODE DVT ppx: Heparin per benzene still utility operator PCP: Zion Hastingso-cont ICU care. Mother and were updated at the bedside. I spent a total of 60minutes coordinating, documenting, and providing care for this patient excluding time spent in the performance of separately billed services Elena Gupta DO [facility] Hospitalist Admission and Anticipated Discharge Date Admission Date: June 28, 2023 Subjective 32-year-old man with history of Crohn's disease status post colectomy with permanent ileostomy, alcohol abuse, history of narcotic abuse currently on Suboxone and tobacco abuse presents with electrolyte abnormalities. Admitted to ICU. Today he is reporting significant pain and excoriated area around his ostomy the drainage from the fistula is still leaking through the ostomy bag onto his skin. He is upset that his dilaudid IV was cut from q4h to q8h. His suboxone continues--he and his mom and at bedside are saying that his suboxone was held at [facility] and he was given oxycodone and dilaudid. They are asking if we should do that here, also. We discussed that with the long halflife, keeping the suboxine on board would be preferred and treating the additional pain with narcotics. Consult placed to pain management to help. Creatinine and sodium has improved today He remains on norepinephrine for BP support, which was the reason for the initial decrease in dilaudid. Physical Exam Physical Exam: CONSTITUTIONAL: WNWD, vitals as above, generally well-appearing, moderate distress with tremulousness 2/2 pain, photophobia EYES: EOMI bilaterally, PERRL, normal conjunctivae, no scleral icterus ENT: external ear and nose normal, MMM NECK: trachea midline RESPIRATORY: clear to auscultation bilaterally, no crackles, rales or wheezes, normal respiratory effort CARDIOVASCULAR: regular rate and rhythm, S1 and 2 heard without murmurs, gallops or rubs, no JVD, no peripheral edema CHEST: inspection of chest was normal GASTROINTESTINAL: soft, generalized nonfocal TTP, with increased discomfort on excoriated area of lower abdomen outside of ostomy bag, blood-tinged drainage in ostomy bag present, ND, no guarding MUSCULOSKELETAL: strength 5/5 throughout, head is normocephalic and atraumatic SKIN: warm and dry NEUROLOGIC: CN 2-12 grossly intact, no sensory deficit, normal cognition, normal speech, no tremor PSYCHIATRIC: alert cooperative and oriented to person, place and time. Euthymic mood, makes good eye contact, language grossly intact, recent and remote memory grossly intact. Results & Data Results & Data Vital Signs (Past 12 Hours) Vital Signs Temp Pulse Pulse Resp BP BP Pulse Ox 06/30/23 05:30 100/55 L 06/30/23 05:30 61 18 97 06/30/23 05:00 101/64 06/30/23 05:00 60 9 L 97 06/30/23 05:00 37.2 C 60 12 101/64 98 06/30/23 04:30 100/61 06/30/23 04:30 63 10 L 97 06/30/23 04:00 107/63 06/30/23 04:00 88 20 100 06/30/23 03:30 100/67 06/30/23 03:30 62 12 98 06/30/23 03:00 107/63 06/30/23 03:00 65 11 L 97 06/30/23 02:30 106/62 06/30/23 02:30 64 9 L 97 06/30/23 02:00 65 10 L 97 06/30/23 02:00 105/58 L 06/30/23 01:30 100/55 L 06/30/23 01:30 66 19 98 06/30/23 01:00 101/54 L 06/30/23 01:00 67 14 98 06/30/23 00:31 95/75 L 06/30/23 00:31 76 24 100 06/30/23 00:00 126/62 06/30/23 00:00 77 13 99 06/30/23 00:00 74 06/29/23 23:30 98/59 L 06/29/23 23:30 80 17 99 06/29/23 23:00 103/59 L 06/29/23 23:00 73 19 100 06/29/23 22:30 103/59 L 06/29/23 22:30 91 H 17 100 06/29/23 22:10 80 20 100 06/29/23 22:10 101/59 L 06/29/23 22:00 86 20 100 06/29/23 21:30 108/61 06/29/23 21:30 78 20 100 06/29/23 21:00 92/66 L 06/29/23 21:00 76 20 100 06/29/23 20:30 96/58 L 06/29/23 20:30 78 27 H 100 06/29/23 20:01 89/53 L 06/29/23 20:01 85 13 99 06/29/23 20:00 84 18 100 O2 Del Method 06/30/23 05:30 06/30/23 05:30 06/30/23 05:00 06/30/23 05:00 06/30/23 05:00 Room Air 06/30/23 04:30 06/30/23 04:30 06/30/23 04:00 06/30/23 04:00 06/30/23 03:30 06/30/23 03:30 06/30/23 03:00 06/30/23 03:00 06/30/23 02:30 06/30/23 02:30 06/30/23 02:00 06/30/23 02:00 06/30/23 01:30 06/30/23 01:30 06/30/23 01:00 06/30/23 01:00 06/30/23 00:31 06/30/23 00:31 06/30/23 00:00 06/30/23 00:00 06/30/23 00:00 06/29/23 23:30 06/29/23 23:30 06/29/23 23:00 06/29/23 23:00 06/29/23 22:30 06/29/23 22:30 06/29/23 22:10 06/29/23 22:10 06/29/23 22:00 06/29/23 21:30 06/29/23 21:30 06/29/23 21:00 06/29/23 21:00 06/29/23 20:30 06/29/23 20:30 06/29/23 20:01 06/29/23 20:01 06/29/23 20:00 Laboratory Results Short CBC 06/30/23 Range/Units 03:57 WBC 6.41 (4.8-10.8) K/ul Hgb 9.1 L (14.0-18.0) g/dl Hct 27.7 L (42.0-52.0) % Plt Count 305 (130-400) K/uL BMP 06/29/23 06/29/23 06/29/23 10:31 17:01 22:28 Sodium 118 L* 122 L 124 L Potassium 4.3 3.6 3.7 Chloride 88 L 90 L 92 L Carbon Dioxide 19 L 18 L 20 L BUN 65 H 57 H 52 H Creatinine 6.81 H* D 5.55 H* D 4.46 H D Glucose 125 H 167 H 139 H Calcium 8.6 8.6 8.7 06/30/23 03:57 Sodium 125 L Potassium 3.5 Chloride 94 L Carbon Dioxide 21 BUN 44 H Creatinine 3.64 H D Glucose 125 H Calcium 8.9 Medications Administered Current Inpatient Medications Buprenorphine/Naloxone (Buprenorphine/Naloxone 8/2 Mg Tab) 2 tab SL DAILY [facility] Stop: 07/29/23 08:59 Last Admin: 06/30/23 09:55 Dose: 2 tab Cyanocobalamin (Cyanocobalamin (B-12) 500 Mcg Tablet) 1,000 mcg PO DAILY [facility] Stop: 07/29/23 08:59 Last Admin: 06/30/23 09:53 Dose: 1,000 mcg Folic Acid (Folic Acid 1 Mg Tab) 1 mg PO DAILY [facility] Stop: 07/29/23 08:59 Last Admin: 06/30/23 09:53 Dose: 1 mg Heparin Sodium (Porcine) (Heparin Sod 5,000 Unit/0.5 Ml Vial) 5,000 units SQ Q8 [facility] Stop: 07/28/23 21:59 Last Admin: 06/30/23 06:42 Dose: 5,000 units Hydromorphone HCl (Hydromorphone Inj 0.5 Mg/0.5 Ml Syr) 0.5 mg IV Q8H PRN PRN Reason: Pain Stop: 07/13/23 08:54 Norepinephrine Bitartrate (Levophed/D5w) 4 mg in 250 mls @ 11.205 mls/hr IV .[id number] [facility]; Protocol Stop: 07/28/23 18:29 Last Titration: 06/30/23 09:30 Dose: 0.04 mcg/kg/min, 11.2 mls/hr Sodium Chloride (Nss) 1,000 mls @ 999 mls/hr IV .Q1H1M [facility] Stop: 06/30/23 11:00 Last Admin: 06/30/23 09:52 Dose: 999 mls/hr Melatonin (Melatonin 3 Mg Tab) 3 mg PO HS PRN PRN Reason: Sleep Stop: 07/29/23 23:31 Last Admin: 06/30/23 00:37 Dose: 3 mg Miscellaneous (Icu Protocol For Hyperglycemia) 1 each N/A ACHS [facility] Stop: 06/30/23 16:37 Last Admin: 06/30/23 07:39 Dose: Not Given Miscellaneous (Remove Nicoderm Patch) 1 each N/A DAILY@0859 [facility] Stop: 07/29/23 08:58 Last Admin: 06/30/23 09:53 Dose: 1 each Nicotine (Nicotine 21 Mg/24 Hr Tdsy) 21 mg TD QAM [facility] Stop: 07/28/23 16:37 Last Admin: 06/30/23 09:54 Dose: 21 mg Pantoprazole Sodium (Pantoprazole 40 Mg Tab) 40 mg PO AMHS [facility] Stop: 07/28/23 20:59 Last Admin: 06/30/23 09:54 Dose: 40 mg Thiamine HCl (Thiamine Hcl 100 Mg Tab) 100 mg PO DAILY [facility] Stop: 07/29/23 08:59 Last Admin: 06/30/23 09:54 Dose: 100 mg (2) Acute kidney failure Acute renal failure type: with acute tubular necrosis Qualified Code(s): N17.0 - Acute kidney failure with tubular necrosis
[2023-06-30] MEDS ORDERED: HYDROmorphone INJ 0.5 MG/0.5 ML SYR IV PRN (08:34)
--- NOTE | 2023-06-30 08:39 | Critical Care Progress Note ---
Date of Service June 30, 2023 Assessment & Plan (1) Acute kidney failure: Plan: Reason Critically Ill: Hyponatremia, vasoactive dependent hypotension PLAN: Neuro: Chronic pain: Not opiate cooper -Continue home Suboxone -Increase Dilaudid interval, every 4 to every 8 with goal to return to baseline dosing of opiates -Single dose of Dilaudid otherwise maintaining Q8 opiate schedule CV: Arterial hypotension secondary to hypovolemia: Received albumin infusion yesterday to minimize sodium load yesterday, 2 L normal saline infusion today as sodium levels have improved -Weaning vasoactive medication: Goal to discontinue today -Cortisol adequate Fluids/Renal: Hyponatremia: Improved -Allow regular diet today -Recheck BMP this afternoon Acute kidney injury: ATN: Significant improvement Hyperkalemia: Resolved ID: sepsis of unclear etiology: Unlikely -Afebrile, no leukocytosis, discontinue anti-infectives GI/Nutrition: Enterocutaneous fistula -Wound consult: VAC changed -Patient requesting transfer to [facility] who is familiar with the patient and his surgical team Heme: Anemia: At baseline DVT prophylaxis: Heparin 5000 units every 8 hours -Injections being refused by the patient given oozing from wound VAC site: I believe risk of hemorrhage from oozing is minimal, continue SCDs Endocrine: ICU hyperglycemia protocol Vascular access: Poor vascular access, right femoral line placed in the emergency department, discontinue femoral line when off vasoactive's -PICC versus midline placement Code Status: Full Disposition: ICU for vasoactive medications - Stable for transfer once off vasoactives for 4-6 hours. Update 1400 additional bolus of 1 L of LR, attempting to turn off vasoactive as patient has responded well anticipate ability to downgrade later today or tomorrow (2) Abdominal pain: (3) Crohn disease: (4) Enterocutaneous fistula: (5) Hyponatremia: (6) Weakness: (7) Dehydration: Admission and Anticipated Discharge Date Admission Date: June 28, 2023 Supervising Physician Co-Signing Physician Notes I have personally spent 45 minutes of critical care time in the direct management of this patient. This is a life/limb threatening event. This includes time spent evaluating patient, direct bedside care, chart review, placing orders, interpretation of diagnostic studies, discussion with consultants, patient, and/or family members regarding treatment decisions, as well as other required patient management activities. This time is exclusive of all separately billable procedures, and teaching time and separate from and in addition to any other critical care service time. Subjective Resting comfortably in bed. After being aroused he requested Dilaudid change to every 6 instead of Q8 as he is still experiencing pain. Physical Exam Physical Exam: General: Alert. nontoxic. Skin: Warm, dry, Head: Atraumatic Ears, nose, mouth and throat: airway patent Cardiovascular: Normal peripheral perfusion Respiratory: no respiratory distress : Salazar present with clear urine in bag Gastrointestinal: Ileostomy present with scant stool in bag, wound VAC changed Musculoskeletal: No deformity Results & Data Results & Data Vital Signs (Past 12 Hours) Vital Signs Temp Pulse Pulse Resp BP BP Pulse Ox 06/30/23 05:30 100/55 L 06/30/23 05:30 61 18 97 06/30/23 05:00 101/64 06/30/23 05:00 60 9 L 97 06/30/23 05:00 37.2 C 60 12 101/64 98 06/30/23 04:30 100/61 06/30/23 04:30 63 10 L 97 06/30/23 04:00 107/63 06/30/23 04:00 88 20 100 06/30/23 03:30 100/67 06/30/23 03:30 62 12 98 06/30/23 03:00 107/63 06/30/23 03:00 65 11 L 97 06/30/23 02:30 106/62 06/30/23 02:30 64 9 L 97 06/30/23 02:00 65 10 L 97 06/30/23 02:00 105/58 L 06/30/23 01:30 100/55 L 06/30/23 01:30 66 19 98 06/30/23 01:00 101/54 L 06/30/23 01:00 67 14 98 06/30/23 00:31 95/75 L 06/30/23 00:31 76 24 100 06/30/23 00:00 126/62 06/30/23 00:00 77 13 99 06/30/23 00:00 74 06/29/23 23:30 98/59 L 06/29/23 23:30 80 17 99 06/29/23 23:00 103/59 L 06/29/23 23:00 73 19 100 06/29/23 22:30 103/59 L 06/29/23 22:30 91 H 17 100 06/29/23 22:10 80 20 100 06/29/23 22:10 101/59 L 06/29/23 22:00 86 20 100 06/29/23 21:30 108/61 06/29/23 21:30 78 20 100 06/29/23 21:00 92/66 L 06/29/23 21:00 76 20 100 O2 Del Method 06/30/23 05:30 06/30/23 05:30 06/30/23 05:00 06/30/23 05:00 06/30/23 05:00 Room Air 06/30/23 04:30 06/30/23 04:30 06/30/23 04:00 06/30/23 04:00 06/30/23 03:30 06/30/23 03:30 06/30/23 03:00 06/30/23 03:00 06/30/23 02:30 06/30/23 02:30 06/30/23 02:00 06/30/23 02:00 06/30/23 01:30 06/30/23 01:30 06/30/23 01:00 06/30/23 01:00 06/30/23 00:31 06/30/23 00:31 06/30/23 00:00 06/30/23 00:00 06/30/23 00:00 06/29/23 23:30 06/29/23 23:30 06/29/23 23:00 06/29/23 23:00 06/29/23 22:30 06/29/23 22:30 06/29/23 22:10 06/29/23 22:10 06/29/23 22:00 06/29/23 21:30 06/29/23 21:30 06/29/23 21:00 06/29/23 21:00 Coding Level of Care Code 43187 CRITICAL CARE 1ST 30-74M Diagnoses Acute renal failure with tubular necrosis N17.0 Acute renal failure type: with acute tubular necrosis Generalized abdominal pain R10.84 Abdominal location: generalized Crohn disease K50.018 Digestive disease complication type: other complication Gastrointestinal tract location: small intestine Enterocutaneous fistula K63.2 Hyponatremia E87.1 Weakness R53.1 Dehydration E86.0 (1) Acute kidney failure Acute renal failure type: with acute tubular necrosis Qualified Code(s): N17.0 - Acute kidney failure with tubular necrosis (2) Abdominal pain Abdominal location: generalized Qualified Code(s): R10.84 - Generalized abdominal pain (3) Crohn disease Digestive disease complication type: other complication Gastrointestinal tract location: small intestine Qualified Code(s): K50.018 - Crohn's disease of small intestine with other complication
[2023-06-30] MEDS: SODIUM CHLORIDE 0.9% 1,000 ML IV SCH ×2 (08:50→09:52)
[2023-06-30] MEDS ORDERED: HYDROmorphone INJ 0.5 MG/0.5 ML SYR IV STA (09:04)
[2023-06-30] MEDS: FOLIC ACID 1 MG TAB PO SCH (09:53)
[2023-06-30] MEDS: CYANOCOBALAMIN (B-12) 500 MCG TABLET PO SCH (09:53)
[2023-06-30] MEDS: THIAMINE HCL 100 MG TAB PO SCH (09:54)
[2023-06-30] MEDS: PANTOprazole 40 MG TAB PO SCH ×2 (09:54→22:10)
[2023-06-30] MEDS: NICOTINE 21 MG/24 HR TDSY TD SCH (09:54)
[2023-06-30] MEDS: BUPRENORPHINE/NALOXONE 8/2 MG TAB SL SCH (09:55)
[2023-06-30 11:17] LABS: BUN Creatinine Ratio 12.6 (10-20); Creatinine Clr Calc Pharmacy 42.5 ml/min; Est GFR (African American) 35.8 ml/min; Est GFR (Non-African American) 30.9 ml/min; Potassium 3.9 mmol/L (3.5-5.1)
--- NOTE | 2023-06-30 11:43 | Nephrology Progress Note ---
Date of Service June 30, 2023 Assessment & Plan Admission and Anticipated Discharge Date Admission Date: June 28, 2023 Subjective Assessment & Plan (1) Acute kidney failure: Severe acute renal failure on presentation with a creatinine of 13 with a baseline of 1. However since being admitted with the use of IV fluid and necessary medical stabilization his renal function is improving very rapidly. He is making urine and creatinine is already down to 3 in less than 36-hour time. Continue IV fluids and medical management. He does not need dialysis and I expect his kidney function to recover completely in the coming days. But given his current status of the GI tract with ileostomy multiple fistula Crohn's disease he is at a very high risk of developing prerenal type acute [place] al failure intermittently. No further work-up for acute renal failure is needed as he is improving very rapidly (2) Acute hyponatremia: Hypovolemic hyponatremia in the setting of ileostomy nausea vomiting increase output and poor oral intake. na now nicely upto 125. Conitnue same. Can do daily labs now. S---labs getting better. making urine nicely. No new issues. Physical Exam Physical Exam: Young white male who is not in any overt respiratory distress she is awake alert oriented x3. Constitutional: Mucous membrane is dry neck is supple no JVD Neck: Neck is supple no JVD Respiratory: Bilateral clear to auscultation Cardiovascular: S1 and S2 regular no murmur rub or gallop Gastrointestinal (Abdomen): Diffusely tender with ileostomy bag in drains. Skin: No rashes noted Psychiatric: Tearful and says he cannot manage his all his health problems at this very young age Results & Data Vital Signs (Past 12 Hours) Vital Signs Temp Pulse Pulse Resp BP BP Pulse Ox 06/30/23 09:14 89 18 105/58 L 99 06/30/23 09:00 69 15 95/58 L 98 06/30/23 08:30 70 12 96/52 L 98 06/30/23 08:00 69 12 97/53 L 98 06/30/23 07:31 92 H 20 103/86 97 06/30/23 07:00 61 13 109/58 L 96 06/30/23 05:30 100/55 L 06/30/23 05:30 61 18 97 06/30/23 05:00 101/64 06/30/23 05:00 60 9 L 97 06/30/23 05:00 37.2 C 60 12 101/64 98 06/30/23 04:30 100/61 06/30/23 04:30 63 10 L 97 06/30/23 04:00 107/63 06/30/23 04:00 88 20 100 06/30/23 03:30 100/67 06/30/23 03:30 62 12 98 06/30/23 03:00 107/63 06/30/23 03:00 65 11 L 97 06/30/23 02:30 106/62 06/30/23 02:30 64 9 L 97 06/30/23 02:00 65 10 L 97 06/30/23 02:00 105/58 L 06/30/23 01:30 100/55 L 06/30/23 01:30 66 19 98 06/30/23 01:00 101/54 L 06/30/23 01:00 67 14 98 06/30/23 00:31 95/75 L 06/30/23 00:31 76 24 100 06/30/23 00:00 126/62 06/30/23 00:00 77 13 99 06/30/23 00:00 74 O2 Del Method 06/30/23 09:14 Room Air 06/30/23 09:00 Room Air 06/30/23 08:30 Room Air 06/30/23 08:00 Room Air 06/30/23 07:31 Room Air 06/30/23 07:00 Room Air 06/30/23 05:30 06/30/23 05:30 06/30/23 05:00 06/30/23 05:00 06/30/23 05:00 Room Air 06/30/23 04:30 06/30/23 04:30 06/30/23 04:00 06/30/23 04:00 06/30/23 03:30 06/30/23 03:30 06/30/23 03:00 06/30/23 03:00 06/30/23 02:30 06/30/23 02:30 06/30/23 02:00 06/30/23 02:00 06/30/23 01:30 06/30/23 01:30 06/30/23 01:00 06/30/23 01:00 06/30/23 00:31 06/30/23 00:31 06/30/23 00:00 06/30/23 00:00 06/30/23 00:00
[2023-06-30] MEDS ORDERED: metOLazone 5 MG TABLET PO SCH (12:00)
[2023-06-30] MEDS ORDERED: FUROSEMIDE 40 MG/4 ML VIAL IV SCH (12:00)
[2023-06-30] MEDS ORDERED: DAPTOmycin 475 MG in SYRINGE 0 ML IV SCH (13:00)
[2023-06-30] MEDS ORDERED: LACTATED RINGER'S 1,000 ML IV ONE (14:04)
[2023-06-30] MEDS ORDERED: oxyCODONE HCL IR 5 MG TAB (IMMEDIATE RELEASE) PO STA (18:02)
[2023-07-01] MEDS: oxyCODONE HCL IR 5 MG TAB (IMMEDIATE RELEASE) PO PRN ×2 (02:40→15:30)
[2023-07-01] MEDS: HYDROmorphone INJ 0.5 MG/0.5 ML SYR IV PRN ×5 (03:54→21:20)
[2023-07-01 04:20] LABS: BUN Creatinine Ratio 12.2 (10-20); Calcium 8.4 mg/dl (8.6-10.3); Creatinine Clr Calc Pharmacy 75.4 ml/min; Est GFR (African American) 71.6 ml/min; Est GFR (Non-African American) 61.8 ml/min; Magnesium 1.4 mg/dl (1.7-2.4); Phosphorus 3.3 mg/dl (2.5-4.9); Potassium 3.6 mmol/L (3.5-5.1)
[2023-07-01 04:22] LABS: Basophils # (auto) 0.05 K/uL (0.00-0.20); Basophils % (auto) 0.8 %; Eosinophils % (auto) 4.7 %; Hematocrit (blood only) 25.4 % (42.0-52.0); Hemoglobin 8.3 g/dl (14.0-18.0); Immature Granulocytes # (auto) 0.06 K/uL (0.01-0.20); Immature Granulocytes % (auto) 0.9 %; Lymphocytes # (auto) 1.77 K/uL (1.20-3.40); Lymphocytes % (auto) 27.7 %; Mean Corpuscular Hemoglobin 27.3 pg (25.0-34.0); Mean Corpuscular Hgb Conc 32.7 g/dL (32.0-36.0); Mean Corpuscular Volume 83.6 fL (80.0-100.0); Mean Platelet Volume 9.2 fL (9.4-12.4); Monocytes # (auto) 1.08 K/uL (0.11-0.59); Monocytes % (auto) 16.9 %; Neutrophils # (auto) 3.13 K/uL (1.40-6.50); Platelet Count 273 K/uL (130-400); RDW Coefficient of Variation 15.5 % (11.5-14.5); RDW Standard Deviation 47.8 fL (36.4-46.3); Red Blood Count 3.04 M/uL (4.70-6.10); White Blood Count 6.39 K/ul (4.8-10.8)
[2023-07-01] MEDS: POTASSIUM CHLORIDE / WTR 20 MEQ/100 ML PLCT IV SCH ×2 (05:29→07:37)
[2023-07-01] MEDS: MAGNESIUM SULFATE / D5W 1 GM/100 ML BAG IV SCH ×4 (05:29→10:51)
[2023-07-01] MEDS: HEPARIN SOD 5,000 UNIT/0.5 ML VIAL SQ SCH ×3 (05:30→20:54)
[2023-07-01] MEDS ORDERED: ALBUMIN 5% 250 ML IV ONE ×2 (07:37→08:30)
[2023-07-01] MEDS: THIAMINE HCL 100 MG TAB PO SCH (07:39)
[2023-07-01] MEDS: FOLIC ACID 1 MG TAB PO SCH (07:39)
[2023-07-01] MEDS: PANTOprazole 40 MG TAB PO SCH ×2 (07:39→20:54)
[2023-07-01] MEDS: NICOTINE 21 MG/24 HR TDSY TD SCH (07:39)
[2023-07-01] MEDS: CYANOCOBALAMIN (B-12) 500 MCG TABLET PO SCH (07:39)
[2023-07-01] MEDS ORDERED: SODIUM CHLORIDE 0.9% 500 ML IV ONE (07:40)
--- NOTE | 2023-07-01 07:54 | Critical Care Progress Note ---
Date of Service July 01, 2023 Assessment & Plan (1) Acute kidney failure: Plan: Reason Critically Ill: Hyponatremia, vasoactive dependent hypotension PLAN: Neuro: Chronic pain: Not opiate cooper -Continue home Suboxone -Deferring to hospitalist medicine as they will become primary, pain management consulted as well CV: Arterial hypotension secondary to hypovolemia: Resolved -Patient at risk for relative adrenal insufficiency given continuous chronic medical issues check low-dose cortisol stim test to evaluate patient's cortisol response -May benefit from short course of mineralocorticoids if patient is demons trating signs and symptoms with relative adrenal insufficiency Patient will remain at risk for hypovolemia given large volume output from enterocutaneous fistula -Orders placed to replace half of daily wound output with 5% albumin infusion daily Fluids/Renal: Hyponatremia: Improved -Regular diet -Daily BMPs Acute kidney injury: ATN: Significant improvement Hyperkalemia: Resolved Hypomagnesemia: Daily magnesium oxide ID: sepsis of unclear etiology: Unlikely -Afebrile, no leukocytosis, completed 48 hours of broad-spectrum antibiotics GI/Nutrition: Enterocutaneous fistula -Wound consult: VAC changed by wound care team -Patient requesting transfer to [facility] who is familiar with the patient and his surgical team Heme: Anemia: At baseline DVT prophylaxis: Heparin 5000 units every 8 hours -Injections being refused by the patient given oozing from wound VAC site: I believe risk of hemorrhage from oozing is minimal, continue SCDs Endocrine: ICU hyperglycemia protocol Vascular access: Poor vascular access, discontinue right femoral CVL -Advanced access placed by IV team continue this IV access Code Status: Full Disposition: Stable for downgrade out of ICU (2) Abdominal pain: (3) Crohn disease: (4) Enterocutaneous fistula: (5) Hyponatremia: (6) Weakness: (7) Dehydration: Admission and Anticipated Discharge Date Admission Date: June 28, 2023 Subjective Overnight patient required short course of vasoactive's secondary to low blood pressures. We will now replace half of the abdominal wound output with 5% albumin daily. Physical Exam Physical Exam: General: Alert. nontoxic. Skin: Warm, dry, Head: Atraumatic Ears, nose, mouth and throat: airway patent Cardiovascular: Normal peripheral perfusion Respiratory: no respiratory distress : Salazar present with clear urine in bag Gastrointestinal: Ileostomy present with scant stool in bag, wound VAC changed Musculoskeletal: No deformity Results & Data Results & Data Vital Signs (Past 12 Hours) Vital Signs Pulse Resp BP Pulse Ox 07/01/23 01:00 95/46 L 07/01/23 01:00 66 15 96 07/01/23 00:00 63 07/01/23 00:00 101/53 L 07/01/23 00:00 75 15 95 06/30/23 23:00 82 12 98 06/30/23 22:30 100/66 06/30/23 22:30 89 20 96 06/30/23 22:00 81 23 98 06/30/23 21:30 76 11 L 95 06/30/23 21:30 99/56 L 06/30/23 21:00 102/54 L 06/30/23 21:00 81 15 86 L 06/30/23 20:00 92 H 16 Critical Care Results & Data Vital Signs (Past 12 Hours) Vital Signs Pulse Resp BP Pulse Ox 07/01/23 01:00 95/46 L 07/01/23 01:00 66 15 96 07/01/23 00:00 63 07/01/23 00:00 101/53 L 07/01/23 00:00 75 15 95 06/30/23 23:00 82 12 98 06/30/23 22:30 100/66 06/30/23 22:30 89 20 96 06/30/23 22:00 81 23 98 06/30/23 21:30 76 11 L 95 06/30/23 21:30 99/56 L 06/30/23 21:00 102/54 L 06/30/23 21:00 81 15 86 L 06/30/23 20:00 92 H 16 Lab & Micro Results (Past 24 Hours) RBC 3.04 M/uL (4.70-6.10) L 07/01/23 WBC 6.39 K/ul (4.8-10.8) 07/01/23 Hgb 8.3 g/dl (14.0-18.0) L 07/01/23 Hct 25.4 % (42.0-52.0) L 07/01/23 MCV 83.6 fL (80.0-100.0) 07/01/23 MCH 27.3 pg (25.0-34.0) 07/01/23 MCHC 32.7 g/dL (32.0-36.0) 07/01/23 RDW Standard Deviation 47.8 fL (36.4-46.3) H 07/01/23 RDW Coefficient of Variation 15.5 % (11.5-14.5) H 07/01/23 Plt Count 273 K/uL (130-400) 07/01/23 MPV 9.2 fL (9.4-12.4) L 07/01/23 Neutrophils (%) (Auto) 49.0 % 07/01/23 Lymphocytes (%) (Auto) 27.7 % 07/01/23 Monocytes # (Auto) 1.08 K/uL (0.11-0.59) H 07/01/23 Eosinophils # (Auto) 0.30 K/uL (0.00-0.50) 07/01/23 Immature Granulocyte % (Auto) 0.9 % 07/01/23 Neutrophils # (Auto) 3.13 K/uL (1.40-6.50) 07/01/23 Lymphocytes # (Auto) 1.77 K/uL (1.20-3.40) 07/01/23 Monocytes # (Auto) 1.08 K/uL (0.11-0.59) H 07/01/23 Eosinophils # (Auto) 0.30 K/uL (0.00-0.50) 07/01/23 Basophils # (Auto) 0.05 K/uL (0.00-0.20) 07/01/23 Immature Granulocyte # (Auto) 0.06 K/uL (0.01-0.20) 3 Na 130 mmol/L (136-145) L 07/01/23 K 3.6 mmol/L (3.5-5.1) 07/01/23 Cl 102 mmol/L (98-107) 07/01/23 CO2 21 mmol/L (21-32) 07/01/23 Anion Gap 7 (3-11) 07/01/23 BUN 18 mg/dl (6-23) 07/01/23 Creatinine 1.47 mg/dl (0.6-1.4) H 07/01/23 Estimated GFR ( Amer) 71.6 ml/min 07/01/23 Estimated GFR (Non-Af Amer) 61.8 ml/min 07/01/23 BUN/Creatinine Ratio 12.2 (10-20) 07/01/23 Glu 97 mg/dl (70-99(Fasting)) 07/01/23 Ca 8.4 mg/dl (8.6-10.3) L 07/01/23 Phosphorus Level 3.3 mg/dl (2.5-4.9) 07/01/23 Mg 1.4 mg/dl (1.7-2.4) L 07/01/23 03:45 Calcium Level 8.4 mg/dl (8.6-10.3) L 07/01/23 03:45 Microbiology 06/28/23 18:44 Aerobic Blood Culture - Preliminary Blood No growth in Aerobic bottle after 48 hours. Anaerobic Blood Culture - Preliminary No growth in Anaerobic bottle after 48 hours. 06/28/23 18:52 Aerobic Blood Culture - Preliminary Blood No growth in Aerobic bottle after 48 hours. Anaerobic Blood Culture - Preliminary No growth in Anaerobic bottle after 48 hours. I & O Totals 24 Hours 06/30/23 07/01/23 07/02/23 06:59 06:59 05:59 Intake Total 1605.559 / 1695.541 3125.421 / 3748.421 Output Total 2800 / 2800 3000 / 3000 Balance -1194.441 / -1194.441 748.421 / 748.421 Cumulative 06/28/23 10:54 thru 07/01/23 06:00 Intake Total 9101.290 Output Total 7425 Balance 1676.290 RT Ventilator Mngmt (Last Documented) Ventilator Ordered Settings Respiratory Rate 15 07/01/23 01:00 Ventilator - PT Measurements Respiratory Rate 15 Coding Level of Care Code 53908 SUB INP/OBS CARE 3/50MIN Diagnoses Acute renal failure with tubular necrosis N17.9 Acute renal failure type: unspecified Generalized abdominal pain R10.84 Abdominal location: generalized Crohn disease K50.018 Digestive disease complication type: other complication Gastrointestinal tract location: small intestine 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
--- NOTE | 2023-07-01 08:40 | Hospitalist Progress Note ---
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 Hospitalized at [facility] 04/08-05/26/23 2/2 perforated duodenum s/p extensive abd surgeries and intraabdominal abscesses now with open abdominal wound and enterocutaneous fistula. Also with known duodenal stent migration that patient refused to have repeat EGD for retrieval. Per discussion with hydrometer calibrator plan is to transfer the patient pending bed availability. Currently [facility] ICU does not have beds, but will remain in contact with [facility] when possible bed available. Possible Sepsis -meets criteria in setting of leukocytosis, hypotension Enterocutaneous fistula s/p multiple abd surgeries hx of Crohn's disease s/p proctocolectomy and end ileostomy pt with increased bloody drainage to wound now leaking out around the ostomy bag and causing increased redness,excoriation and tenderness cont ICU care, now requiring norepinephrine for support Broad-spectrum antibiotics with daptomycin and Zosyn empirically given due to possible sepsis, and these have been stopped. Wound care continues to see patient. Cont ostomy management per them. Patient and wish to be transferred to [facility], which is still being considered--initial call revealed no ICU beds were available. He remains icu status on levophed MELISSA Hyperkalemia Acute Hyponatremia likely in setting of pre renal acute kidney injury vs ATN insetting of hypotension with ongoing draining EC fistula. bun 77, cr 11.3; baseline 0.5 serial labs, DDAVP ordered x 2 per hydrometer calibrator creatinine improving to 1.47 today, making urine more now-->acute renal failure almost resolved. nephrology following and notes there is an increased risk of intermittent renal failure given ongoing drainage from ostomy site. Na is improved with use of saline-->desmopressin required. Na is 130 today, cont clear liquids PO as tolerated. He is still requiring norepinephrine but received albumin this morning as well as a small IVF bolus. Trend BMP in am. Chronic Pain pt on Suboxone therapy, continued per ICU pt also uses medical marijuana Now receiving dilaudid 0.5mg IV q4h-->pt became upset when this was decreased to q8h and reports severe pain. Added oral oxycodone to see if this would offer more consistent pain control and lessen the need for the dilaudid. Appears this regimen is acceptable for coverage for the time being. Encouraged to use PO option as often as possible. WOCN for assistance with topical support for excoriated area on lower abdomen. consulted Pain managment. Tobacco abuse nicotine patch ordered cessation advised Previous alcohol abuse abstinent for 2 months reports history of peripheral neuropathy for this issue continue folic acid/thiamine and B12 supplementation as ordered. 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 Follow-up with Neurology once discharged. Lines: R femoral line placed in ED Salazar Catheter placed in ED draining dark/kathy urine FULL CODE DVT ppx: Heparin per hydrometer calibrator PCP: [facility] Dispo-cont ICU care until reliably off Levophed and not hypotensive with a couple of doses of opioids. I spent a total of 60minutes coordinating, documenting, and providing care for this patient excluding time spent in the performance of separately billed services Elena Gupta DO [facility] Hospitalist Admission and Anticipated Discharge Date Admission Date: June 28, 2023 Subjective 32-year-old man with history of Crohn's disease status post colectomy with permanent ileostomy, alcohol abuse, history of narcotic abuse currently on Suboxone and tobacco abuse presents with electrolyte abnormalities. Admitted to ICU. Pt is reluctant to participate in the exam today, pulling his blanket over his head and keeping his sleep mask over his eyes. Ultimately he was compliant with physical Reports the current pain regimen is managing his pain well enough but persistent pain is present. Diet increased to regular food and he is happy wtih this change. Afebrile. Still on norepinephrine. Cont ICU until reliably off this for several hours. femoral central line in place on left. Physical Exam Physical Exam: CONSTITUTIONAL: WNWD, vitals as above, generally well-appearing, NAD EYES: pupils are equal and round bilaterally, normal conjunctivae, no scleral icterus ENT: external ear and nose normal, MMM NECK: trachea midline RESPIRATORY: clear to auscultation bilaterally, no crackles, rales or wheezes, normal respiratory effort CARDIOVASCULAR: regular rate and rhythm, S1 and 2 heard without murmurs, gallops or rubs, no JVD, no peripheral edema CHEST: inspection of chest was normal GASTROINTESTINAL: soft, generalized nonfocal TTP, with increased discomfort on excoriated area of lower abdomen outside of ostomy bag--this is covered and appears less of an issue today for him, blood-tinged drainage in ostomy bag present, ND, no guarding MUSCULOSKELETAL: strength 5/5 throughout, head is normocephalic and atraumatic SKIN: warm and dry NEUROLOGIC: CN 2-12 grossly intact, no sensory deficit, normal cognition, normal speech, no tremor PSYCHIATRIC: alert cooperative and oriented to person, place and time. Euthymic mood, makes good eye contact, language grossly intact, recent and remote memory grossly intact. Results & Data Results & Data Vital Signs (Past 12 Hours) Vital Signs Pulse Resp BP Pulse Ox 07/01/23 01:00 95/46 L 07/01/23 01:00 66 15 96 07/01/23 00:00 63 07/01/23 00:00 101/53 L 07/01/23 00:00 75 15 95 06/30/23 23:00 82 12 98 06/30/23 22:30 100/66 06/30/23 22:30 89 20 96 06/30/23 22:00 81 23 98 06/30/23 21:30 76 11 L 95 06/30/23 21:30 99/56 L 06/30/23 21:00 102/54 L 06/30/23 21:00 81 15 86 L Laboratory Results Short CBC 07/01/23 Range/Units 03:45 WBC 6.39 (4.8-10.8) K/ul Hgb 8.3 L (14.0-18.0) g/dl Hct 25.4 L (42.0-52.0) % Plt Count 273 (130-400) K/uL BMP 06/30/23 06/30/23 07/01/23 10:35 19:29 03:45 Sodium 128 L 128 L 130 L Potassium 3.9 3.6 Chloride 101 102 Carbon Dioxide 19 L 21 BUN 33 H 18 Creatinine 2.61 H D 1.47 H D Glucose 101 H 97 Calcium 8.0 L 8.4 L Medications Administered Current Inpatient Medications Buprenorphine/Naloxone (Buprenorphine/Naloxone 8/2 Mg Tab) 2 tab SL DAILY [facility]YNA Stop: 07/29/23 08:59 Last Admin: 06/30/23 09:55 Dose: 2 tab Cyanocobalamin (Cyanocobalamin (B-12) 500 Mcg Tablet) 1,000 mcg PO DAILY [facility]YNA Stop: 07/29/23 08:59 Last Admin: 07/01/23 07:39 Dose: 1,000 mcg Folic Acid (Folic Acid 1 Mg Tab) 1 mg PO DAILY CHYNA Stop: 07/29/23 08:59 Last Admin: 07/01/23 07:39 Dose: 1 mg Heparin Sodium (Porcine) (Heparin Sod 5,000 Unit/0.5 Ml Vial) 5,000 units SQ Q8 [facility]YNA Stop: 07/28/23 21:59 Last Admin: 07/01/23 05:30 Dose: Not Given Hydromorphone HCl (Hydromorphone Inj 0.5 Mg/0.5 Ml Syr) 0.5 mg IV Q4H PRN PRN Reason: Severe Pain (Scale 7, 8, 9,10) Stop: 07/14/23 08:33 Last Admin: 07/01/23 07:52 Dose: 0.5 mg Magnesium Sulfate/Dextrose (Magnesium Sulfate / D5w) 1 gm in 100 mls @ 50 mls/hr IV Q2H [facility]YNA Stop: 07/01/23 12:44 Last Admin: 07/01/23 07:37 Dose: 50 mls/hr Potassium Chloride (K Sid / Wtr) 20 meq in 100 mls @ 50 mls/hr IV Q2H [facility]NA Stop: 07/01/23 09:14 Last Admin: 07/01/23 07:37 Dose: 50 mls/hr Albumin Human (Albumin 5%) 250 mls @ 500 mls/hr IV 0830 ONE Stop: 07/01/23 08:59 Cosyntropin 1 mcg/ Syringe 0.5 mls @ 1 mls/min IV ONE ONE; Protocol Stop: 07/02/23 08:01 Albumin Human (Albumin 5%) 250 mls @ 500 mls/hr IV PRN PRN PRN Reason: Undecided Stop: 07/04/23 07:42 Magnesium Oxide (Magnesium Oxide 400 Mg Tab) 400 mg PO BID CHYNA Stop: 07/31/23 08:59 Melatonin (Melatonin 3 Mg Tab) 3 mg PO HS PRN PRN Reason: Sleep Stop: 07/29/23 23:31 Last Admin: 06/30/23 22:10 Dose: 3 mg Miscellaneous (Remove Nicoderm Patch) 1 each N/A DAILY@0859 [facility] Stop: 07/29/23 08:58 Last Admin: 07/01/23 07:42 Dose: 1 each Nicotine (Nicotine 21 Mg/24 Hr Tdsy) 21 mg TD QAM [facility] Stop: 07/28/23 16:37 Last Admin: 07/01/23 07:39 Dose: 21 mg Oxycodone HCl (Oxycodone Hcl Ir 5 Mg Tab (Immediate Release)) 5 mg PO Q6H PRN PRN Reason: Severe Pain (Scale 7, 8, 9,10) Stop: 07/14/23 18:21 Last Admin: 07/01/23 02:40 Dose: 5 mg Pantoprazole Sodium (Pantoprazole 40 Mg Tab) 40 mg PO AMHS [facility] Stop: 07/28/23 20:59 Last Admin: 07/01/23 07:39 Dose: 40 mg Thiamine HCl (Thiamine Hcl 100 Mg Tab) 100 mg PO DAILY [facility] Stop: 07/29/23 08:59 Last Admin: 07/01/23 07:39 Dose: 100 mg (2) Acute kidney failure Acute renal failure type: unspecified Qualified Code(s): N17.9 - Acute kidney failure, unspecified
[2023-07-01] MEDS: NOREPINEPHRINE/D5W 4 MG/250 ML PLCT IV SCH (08:42)
[2023-07-01] MEDS: BUPRENORPHINE/NALOXONE 8/2 MG TAB SL SCH (09:40)
[2023-07-01] MEDS: MAGNESIUM OXIDE 400 MG TAB PO SCH ×2 (11:07→20:54)
--- NOTE | 2023-07-01 13:35 | Nephrology Progress Note ---
Date of Service July 01, 2023 Assessment & Plan (1) Acute kidney failure: Plan: Severe acute renal failure on presentation with a creatinine of 13 with a baseline of 1. However since being admitted with the use of IV fluid and necessary medical stabilization his renal function continues to improve to near baseline. 1.6L UOP past 24 hrs and creat already under 2 -no IVF needed -but given his GI tract with ileostomy multiple fistula Crohn's disease he is at a very high risk of developing prerenal type acute renal failure intermittently. daily bmp (2) Acute hyponatremia: Plan: Hypovolemic hyponatremia in the setting of ileostomy nausea vomiting increase output and poor oral intake. Sodium was 110 and went up really fast with just use of normal saline. Then stabilized after use of desmopressin to 118. went from 125 yesterday am to 130 this am, appropriate rate of correction; off of ivf for now and albumin being used instead which is reasonable. -daily [facility] Admission and Anticipated Discharge Date Admission Date: June 28, 2023 Subjective no interval events clincially; pt c/o fatigue adn not being left in peace to rest; no sob, no edema, no decreased uop Review of Systems 2 Review of Systems: All systems reviewed & are unremarkable except as noted in Subjective Physical Exam 2 Constitutional: well developed, well nourished, + frail appearing and cooperative; no acute distress Eyes: EOM intact bilaterally ENMT: Ears: no external ear abnormality Nose: no external nose abnormality Mouth: + dry oral mucous membranes Neck: no nuchal rigidity Respiratory: normal respiratory effort Auscultation: + diminished lung sounds (markedly) Cardiovascular: RRR, no murmur, no edema Gastrointestinal (Abdomen): Inspection/Auscultation: normal bowel sounds and + abdominal surgical scar (large ostomy present) Percussion/Palpation: + abdomen tender and abdomen soft Musculoskeletal: Extremities: strength 5/5 throughout Skin: no rashes, warm and dry Neurologic: reis, fluent speech, no tremor Results & Data Vital Signs (Past 12 Hours) Vital Signs Pulse Resp BP Pulse Ox O2 Del Method 07/01/23 12:00 67 12 96/48 L 96 Room Air 07/01/23 11:30 70 11 L 98/52 L 07/01/23 11:00 68 12 96/48 L 95 Room Air 07/01/23 10:30 71 13 94/52 L 96 Room Air 07/01/23 10:00 74 15 92/53 L 94 Room Air 07/01/23 09:00 75 12 96/57 L 95 Room Air 07/01/23 08:30 68 12 07/01/23 08:30 93/54 L 07/01/23 08:00 80 23 07/01/23 08:00 67 07/01/23 07:30 58 L 13 100 07/01/23 07:00 61 14 100 Laboratory Results 07/01/23 03:45 07/01/23 03:45 (1) Acute kidney failure Acute renal failure type: unspecified Qualified Code(s): N17.9 - Acute kidney failure, unspecified
[2023-07-01] MEDS: GABAPENTIN 300 MG CAP PO SCH (20:54)
[2023-07-02] MEDS: oxyCODONE HCL IR 5 MG TAB (IMMEDIATE RELEASE) PO PRN ×4 (00:25→22:33)
[2023-07-02 04:19] LABS: Basophils # (auto) 0.07 K/uL (0.00-0.20); Basophils % (auto) 0.8 %; Eosinophils # (auto) 0.27 K/uL (0.00-0.50); Eosinophils % (auto) 3.1 %; Hematocrit (blood only) 28.4 % (42.0-52.0); Hemoglobin 9.2 g/dl (14.0-18.0); Immature Granulocytes # (auto) 0.09 K/uL (0.01-0.20); Lymphocytes # (auto) 2.56 K/uL (1.20-3.40); Mean Corpuscular Hgb Conc 32.4 g/dL (32.0-36.0); Mean Corpuscular Volume 83.3 fL (80.0-100.0); Mean Platelet Volume 9.2 fL (9.4-12.4); Monocytes # (auto) 1.24 K/uL (0.11-0.59); Neutrophils % (auto) 52.1 %; Platelet Count 323 K/uL (130-400); RDW Coefficient of Variation 15.7 % (11.5-14.5); RDW Standard Deviation 47.7 fL (36.4-46.3); Red Blood Count 3.41 M/uL (4.70-6.10); White Blood Count 8.83 K/ul (4.8-10.8)
[2023-07-02 04:33] LABS: Calcium 8.7 mg/dl (8.6-10.3); Magnesium 1.5 mg/dl (1.7-2.4)
[2023-07-02 04:39] LABS: BUN Creatinine Ratio 7.9 (10-20); Creatinine Clr Calc Pharmacy 124.4 ml/min; Est GFR (African American) 130.2 ml/min; Est GFR (Non-African American) 112.3 ml/min; Phosphorus 2.7 mg/dl (2.5-4.9)
[2023-07-02] MEDS: HEPARIN SOD 5,000 UNIT/0.5 ML VIAL SQ SCH ×3 (06:06→20:34)
[2023-07-02] MEDS: ALBUMIN 5% 250 ML IV PRN ×2 (06:40→07:07)
[2023-07-02] MEDS: HYDROmorphone INJ 0.5 MG/0.5 ML SYR IV PRN ×6 (06:42→20:33)
[2023-07-02] MEDS ORDERED: COSYNTROPIN 1 MCG in SYRINGE 0 ML IV ONE (08:00)
[2023-07-02] MEDS: BUPRENORPHINE/NALOXONE 8/2 MG TAB SL SCH ×2 (09:08→15:24)
[2023-07-02] MEDS: CYANOCOBALAMIN (B-12) 500 MCG TABLET PO SCH (09:09)
[2023-07-02] MEDS: FOLIC ACID 1 MG TAB PO SCH (09:09)
[2023-07-02] MEDS: GABAPENTIN 300 MG CAP PO SCH ×3 (09:09→20:34)
[2023-07-02] MEDS: THIAMINE HCL 100 MG TAB PO SCH (09:10)
[2023-07-02] MEDS: MAGNESIUM OXIDE 400 MG TAB PO SCH ×2 (09:10→20:34)
[2023-07-02] MEDS: NICOTINE 21 MG/24 HR TDSY TD SCH (09:10)
[2023-07-02] MEDS: PANTOprazole 40 MG TAB PO SCH ×2 (09:10→20:34)
--- NOTE | 2023-07-02 09:56 | Hospitalist Progress Note ---
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 Hospitalized at [facility] 04/08-05/26/23 2/2 perforated duodenum s/p extensive abd surgeries and intraabdominal abscesses now with open abdominal wound and enterocutaneous fistula. Also with known duodenal stent migration that patient refused to have repeat EGD for retrieval. Per discussion with computer animator plan is to transfer the patient pending bed availability. Currently [facility] ICU does not have beds, but will remain in contact with [facility] when possible bed available. sepsis ruled out and he is doing well off abs hypotension likely related to hypovolemia in setting of narcotic use. Enterocutaneous fistula s/p multiple abd surgeries hx of Crohn's disease s/p proctocolectomy and end ileostomy pt with increased bloody drainage to wound now leaking out around the ostomy bag and causing increased redness,excoriation and tenderness cont ICU care, now requiring norepinephrine for support Broad-spectrum antibiotics with daptomycin and Zosyn empirically given due to possible sepsis, and these have been stopped. Wound care continues to see patient. Cont ostomy management per them. Off pressor support on 07/01 and transitioned out of ICU. Still with >1L output from fistula daily GI consult and spoke with provider who states patient mostly focused on asking her for dilaudid multiple possible therapies for this, however, he first needs to establish care with a GI doctor outpatient. I disucssed the importance of this with patient and . Planning for a repeat colonoscopy through the ostomy to rerieve the migrated stent currently in the small bowel as outpatient, mid Jun. Offered octreotide which patient declined because it was an injection We discussed TPN which will not happen during this hospitalization and could be organized with his GI provider as outpatient Patient does vape marijuana and I explained that although we have a policy for administering MJ here, that excludes combustibles. MELISSA Hyperkalemia Acute Hyponatremia likely in setting of pre renal acute kidney injury vs ATN insetting of hypotension with ongoing draining EC fistula. bun 77, cr 11.3; baseline 0.5 serial labs, DDAVP ordered x 2 per computer animator creatinine improving to 1.47 today, making urine more now-->acute renal failure almost resolved. nephrology following and notes there is an increased risk of intermittent renal failure given ongoing drainage from ostomy site. Na is improved with use of saline-->desmopressin required. Na is 130 today, cont clear liquids PO as tolerated. He is still requiring norepinephrine but received albumin this morning as well as a small IVF bolus. Trend BMP in am. Chronic Pain pt on Suboxone therapy, continued per ICU pt also uses medical marijuana Now receiving dilaudid 0.5mg IV q4h-->pt became upset when this was decreased to q8h and reports severe pain. Added oral oxycodone to see if this would offer more consistent pain control and lessen the need for the dilaudid. Appears this regimen is acceptable for coverage for the time being. Encouraged to use PO option as often as possible. WOCN for assistance with topical support for excoriated area on lower abdomen. consulted Pain managment. Tobacco abuse nicotine patch ordered cessation advised Previous alcohol abuse abstinent for 2 months reports history of peripheral neuropathy for this issue continue folic acid/thiamine and B12 supplementation as ordered. 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 Follow-up with Neurology once discharged. Lines: R femoral line placed in ED Salazar Catheter placed in ED draining dark/kathy urine FULL CODE DVT ppx: Heparin per computer animator PCP: [facility] Dispo-PCU for monitoring with daily labs and monitoring output of ostomy. Plan for dc home when pain better under control, he is draining less? and he is eating-which he is doing now. I spent a total of 60minutes coordinating, documenting, and providing care for this patient excluding time spent in the performance of separately billed services [facility] Admission and Anticipated Discharge Date Admission Date: June 28, 2023 Subjective 32-year-old man with history of Crohn's disease status post colectomy with permanent ileostomy, alcohol abuse, history of narcotic abuse currently on Suboxone and tobacco abuse presents with electrolyte abnormalities. Admitted to ICU. No evidence of adrenal insufficiency on labwork this morning I discussed the case with acoustical logging engineer who does not feel there is a need to transfer at this point We discussed the consideration of octreotide as a way to slow down the EC fistula output which has been >1L daily. We discussed that patient does not have good followup with one acoustical logging engineer, having had his original surgery in [place] and then receiving intermittent care since then Patient's main concern is his uncontrolled pain which is ongoing to the point he shakes his hands, grabs his head and continously asks if he can have the RN be called to give the med "right now"despite just having been given dilaudid 0.5mg IV one hour ago. He refuses to try the oxycodone because the dilaudid ("it just works so well though" --then later states "the (oxycodone) 5s don't do anything, the 10s don't do anything" grabs his head again then asks "can I call the nurse again now?" We discussed that the EC drainage in the bag is jones red consistent with the multiple red Powerade bottles that he is drinking from his bedside table. I recommended that he stop drinking this as this is irritating to the skin, and try something clear instead. He was reluctant but verbalized understanding. at bedside and we discussed the importance of having a GI doc overseeing care. They are planning for colonoscopy to retrieve the migrated stent on Jul 12 We discussed at a high level options like octreotide, which he declined because it is an injection, and TPN with bowel rest--currently not an option until he can followup with GI as outpatient. Per RN patient refused to take his suboxone. Noticeably he is asking for more dilaudid today. I requested that he continue to take this now, and after further discussion he was agreeable. Mom was at bedside at this point and was updated and verbalized that he was having pain. I empathized verbally that I believed that was the case, we were trying not to create a new dependence on something that we wouldn't be continuing at home. We again readdressed the importance of not drinking the Powerade for now, and the said "well they keep bringing it to him. If this bottle (pointed to a tea bottle in front of her) is lying right here and Im thirsty I'm going to drink it." I asked him if he was requesting the Powerade and he wasn't able to give a clear response, but typically this is not brought in unless requested. He asked what he should drink and we discussed that water was the best option for now, especially for his skin. We extensively discussed that he was on suboxone only coming into the hospital and will be on suboxone only going out and home again. states that his pain was fine on the suboxone monotherapy at home and that he transitioned well from lots of narcotics at [facility] to only suboxone after 5 days of continuing oxycodone post discharge. At one point she demanded to see the pain management doctor, who is consulted. I explained the specialist would likely see him tomorrow. Per primary RN notes there is a focus on pain medication administration, also morning nursing note states the patient was intentionally asking for red powerade. Physical Exam Physical Exam: CONSTITUTIONAL: WNWD, vitals as above, moderate distress and becomes frantic grabbing head 2/2 pain EYES: normal conjunctivae, no scleral icterus ENT: external ear and nose normal, MMM NECK: trachea midline RESPIRATORY: clear to auscultation bilaterally, no crackles, rales or wheezes, normal respiratory effort CARDIOVASCULAR: regular rate and rhythm, S1 and 2 heard without murmurs, gallops or rubs, no JVD, no peripheral edema CHEST: inspection of chest was normal GASTROINTESTINAL: soft, generalized nonfocal TTP, ostomy bag in place with red powerade sitting in the bag MUSCULOSKELETAL: generalized weakness, w/c bound, head is normocephalic and atraumatic SKIN: warm and dry NEUROLOGIC: CN 2-12 grossly intact, no sensory deficit, normal cognition, normal speech, no tremor PSYCHIATRIC: alert cooperative and oriented to person, place and time. Euthymic mood, makes good eye contact, language grossly intact, recent and remote memory grossly intact. Results & Data Results & Data Vital Signs (Past 12 Hours) Vital Signs Temp Pulse Pulse Pulse Resp BP Pulse Ox 07/02/23 07:00 36.8 C 82 17 104/56 L 97 07/02/23 04:08 37.2 C 75 12 101/64 98 07/02/23 00:00 36.8 C 68 13 103/61 98 07/01/23 23:56 67 O2 Del Method 11/05/23 07:00 Room Air 07/02/23 04:08 Room Air 07/02/23 00:00 Room Air 07/01/23 23:56 Laboratory Results Short CBC 07/02/23 Range/Units 03:43 WBC 8.83 (4.8-10.8) K/ul Hgb 9.2 L (14.0-18.0) g/dl Hct 28.4 L (42.0-52.0) % Plt Count 323 (130-400) K/uL BMP 07/02/23 03:43 Sodium 131 L Potassium 4.0 Chloride 104 Carbon Dioxide 22 BUN 7 Creatinine 0.89 D Glucose 82 Calcium 8.7 Medications Administered Current Inpatient Medications Buprenorphine/Naloxone (Buprenorphine/Naloxone 8/2 Mg Tab) 2 tab SL DAILY [facility] Stop: 07/29/23 08:59 Last Admin: 07/02/23 09:08 Dose: Not Given Cyanocobalamin (Cyanocobalamin (B-12) 500 Mcg Tablet) 1,000 mcg PO DAILY [facility] Stop: 07/29/23 08:59 Last Admin: 07/02/23 09:09 Dose: 1,000 mcg Folic Acid (Folic Acid 1 Mg Tab) 1 mg PO DAILY [facility] Stop: 07/29/23 08:59 Last Admin: 07/02/23 09:09 Dose: 1 mg Gabapentin (Gabapentin 300 Mg Cap) 300 mg PO TID [facility]NA Stop: 07/31/23 20:59 Last Admin: 07/02/23 09:09 Dose: 300 mg Heparin Sodium (Porcine) (Heparin Sod 5,000 Unit/0.5 Ml Vial) 5,000 units SQ Q8 [facility] Stop: 07/28/23 21:59 Last Admin: 07/02/23 06:06 Dose: 5,000 units Hydromorphone HCl (Hydromorphone Inj 0.5 Mg/0.5 Ml Syr) 0.5 mg IV Q4H PRN PRN Reason: Severe Pain (Scale 7, 8, 9,10) Stop: 07/14/23 08:33 Last Admin: 07/02/23 06:42 Dose: 0.5 mg Albumin Human (Albumin 5%) 250 mls @ 500 mls/hr IV PRN PRN PRN Reason: Undecided Stop: 07/04/23 07:42 Last Infusion: 07/02/23 07:40 Dose: Infused Magnesium Sulfate 4 gm/ Sodium (Chloride) 1,008 mls @ 125 mls/hr IV .Q8H4M [facility] Stop: 07/02/23 18:03 Magnesium Oxide (Magnesium Oxide 400 Mg Tab) 400 mg PO BID [facility] Stop: 07/31/23 08:59 Last Admin: 07/02/23 09:10 Dose: 400 mg Melatonin (Melatonin 3 Mg Tab) 3 mg PO HS PRN PRN Reason: Sleep Stop: 07/29/23 23:31 Last Admin: 06/30/23 22:10 Dose: 3 mg Miscellaneous (Remove Nicoderm Patch) 1 each N/A DAILY@0859 [facility] Stop: 07/29/23 08:58 Last Admin: 07/02/23 09:08 Dose: 1 each Nicotine (Nicotine 21 Mg/24 Hr Tdsy) 21 mg TD QAM [facility] Stop: 07/28/23 16:37 Last Admin: 07/02/23 09:10 Dose: 21 mg Oxycodone HCl (Oxycodone Hcl Ir 5 Mg Tab (Immediate Release)) 5 mg PO Q6H PRN PRN Reason: Severe Pain (Scale 7, 8, 9,10) Stop: 07/14/23 18:21 Last Admin: 07/02/23 09:07 Dose: 5 mg Pantoprazole Sodium (Pantoprazole 40 Mg Tab) 40 mg PO AMHS [facility] Stop: 07/28/23 20:59 Last Admin: 07/02/23 09:10 Dose: 40 mg Thiamine HCl (Thiamine Hcl 100 Mg Tab) 100 mg PO DAILY [facility] Stop: 07/29/23 08:59 Last Admin: 07/02/23 09:10 Dose: 100 mg (1) Acute kidney failure Acute renal failure type: unspecified Qualified Code(s): N17.9 - Acute kidney failure, unspecified
[2023-07-02] MEDS ORDERED: MAGNESIUM SULFATE 50% 4 GM in SODIUM CHLORIDE 0.9% 1,000 ML IV SCH (10:30)
[2023-07-02] MEDS ORDERED: HYDROmorphone INJ 0.5 MG/0.5 ML SYR IV STA (12:51)
--- NOTE | 2023-07-02 17:52 | Gastrointestinal Consultation ---
Date of Consultation July 02, 2023 Assessment & Plan (1) Hypovolemia with active loss of fluid: (2) Enterocutaneous fistula: 32 yo male with complicated IBD history and recent prolonged hospitalization with perforated duodenal ulcer and multiple abdominal surgeries. Now with open abd wound and excessive drainiage from EC fistulae. Not on IBD medications. Patient did not allow abd exam. If the fluid is from EC fistulae, would need to consider period of bowel rest and possibly a jejunal feeding tube for enteral feeds, abx. Octroetide may be a useful adjunct. Please obtain detailed reocrds. (3) Crohn's disease: (4) Acute kidney failure: History of Present Illness Reason for Consultation: excessive EC fistula output Attending Physician: Elena Gupta, DO History of Present Illness 32 yo male with ho ETOH and narcotic med abuse (on suboxone), ?CIDP, chronic pain and a complicated history of Crohn's disease who has not been on IBD directted therapy for over 5 years. He is not clear on any of the details of his Crohn's disease other than he had a colectomy with permanent ileostomy over 5 years ago somewhere in [place]. He was hospitalized 04/08 - 05/26 with perforated duodenal ulcer ultimately transferred to [facility]. He was discharged with open abd wound. Admitted here 06/28 with hypotension, weakness, hypovolemic hyponatremia and acute renal failure. He was in the ICU and now on medical floor. We are asked to see him for input regarding the excessive drainage from EC fistulae. The patient asking for transfer to [facility] or discharge to home. Asking for dilaudid. He is unable to provide any details regarding his IBD or plan of care regarding the open abd wound. He also would not allow me to e xamine his abdomen or visualize it. Allergies Allergy/AdvReac Type Severity Reaction Status Date / Time Fish Containing Products Allergy Verified 06/29/23 09:35 fish derived Allergy Verified 06/29/23 09:35 fish oil Allergy Verified 06/29/23 09:35 shellfish derived Allergy Verified 06/29/23 09:35 adalimumab [From Humira] AdvReac Severe CONVULSIONS Verified 06/28/23 15:26 infliximab [From Remicade] AdvReac Severe CONVULSIONS Verified 06/28/23 15:26 methotrexate AdvReac Severe CONVULSIONS Verified 06/28/23 15:26 SEAFOOD AdvReac Intermediate BLOATING/GAS Uncoded 06/28/23 15:26 DISCOMFORT Home Medications Medication Instructions Recorded Confirmed Type buprenorphine 8 mg-naloxone 2 mg 2 tab sublingual DAILY 06/22/22 06/28/23 History sublingual tablet pantoprazole 40 mg tablet,delayed 40 mg PO AMHS 06/22/22 06/28/23 History release diclofenac sodium 75 mg 75 mg PO BID 08/02/22 06/28/23 History tablet,delayed release folic acid 1 mg tablet 1 mg PO QAM 08/02/22 06/28/23 History mecobalamin (vitamin B12) 1,000 1,000 mcg PO QAM 08/02/22 06/28/23 History mcg chewable tablet tadalafil 5 mg tablet 5 mg PO DAILY PRN Erectile 08/02/22 06/28/23 History Dysfunction thiamine mononitrate (vit B1) 100 100 mg PO QAM 08/02/22 06/28/23 History mg tablet gabapentin 300 mg capsule 300 mg PO TID 04/07/23 06/28/23 History Patient History Medical History Narcotic abuse Tobacco use Alcohol abuse Acute anxiety Depression Arthritis Crohn disease Surgical History History of wisdom tooth extraction History of knee surgery Bilateral knee scopes History of hernia surgery History of colon surgery Family History Other Diabetes Social History Smoking Status: Current every day smoker Tobacco Type: Cigarettes Cigarettes Per Day: 1/2 pack of cigarettes; Second Hand Exposure: Yes; Do You Dip or Chew Tobacco: No; Hx Alcohol Use: No Hx Substance Use: Yes Prescribed Medications: Former Misuse of Rx Meds Non- Prescribed Medications: Marijuana Last Used Substance Other:: 06/28/2023 Substance Use Type Other:: suboxone Preferred Language: [place] Communication Ability: Effective Leases And Land Supervisor Required: No Beliefs That Will Affect Care: None Current Living Situation: Significant Other Other Information That Helps Us Care for You: No Feels Safe at Home: Yes Safety Concerns: Feels Safe At This Time Assistive Devices: Walker and Wheelchair Review of Systems Review of Systems: All systems reviewed & are unremarkable except as noted in HPI & below Physical Exam Physical Exam: limited as patient would not allow abd exam Results & Data Vital Signs (Past 12 Hours) Vital Signs Temp Pulse Resp BP Pulse Ox O2 Del Method 07/02/23 15:50 37.0 C 92 H 17 106/66 93 Room Air 07/02/23 12:03 36.7 C 78 18 111/70 97 Room Air 07/02/23 07:00 36.8 C 82 17 104/56 L 97 Room Air (3) Crohn's disease Digestive disease complication type: with fistula Gastrointestinal tract location: unspecified location Qualified Code(s): K50.913 - Crohn's disease, unspecified, with fistula (4) Acute kidney failure Acute renal failure type: unspecified Qualified Code(s): N17.9 - Acute kidney failure, unspecified
[2023-07-02] MEDS: MELATONIN 3 MG TAB PO PRN (21:41)
[2023-07-03] MEDS: HYDROmorphone INJ 0.5 MG/0.5 ML SYR IV PRN ×3 (00:30→08:37)
[2023-07-03] MEDS: HEPARIN SOD 5,000 UNIT/0.5 ML VIAL SQ SCH ×2 (05:08→14:17)
[2023-07-03] MEDS: oxyCODONE HCL IR 5 MG TAB (IMMEDIATE RELEASE) PO PRN (05:08)
[2023-07-03] MEDS: ALBUMIN 5% 250 ML IV PRN ×2 (06:33→07:04)
[2023-07-03 06:47] LABS: Hematocrit (blood only) 25.7 % (42.0-52.0); Hemoglobin 8.6 g/dl (14.0-18.0); Mean Corpuscular Hemoglobin 27.7 pg (25.0-34.0); Mean Corpuscular Hgb Conc 33.5 g/dL (32.0-36.0); Mean Corpuscular Volume 82.9 fL (80.0-100.0); Mean Platelet Volume 9.1 fL (9.4-12.4); Platelet Count 294 K/uL (130-400); RDW Coefficient of Variation 15.9 % (11.5-14.5); RDW Standard Deviation 48.3 fL (36.4-46.3); White Blood Count 9.62 K/ul (4.8-10.8)
[2023-07-03 07:06] LABS: BUN Creatinine Ratio 4.5 (10-20); Calcium 8.4 mg/dl (8.6-10.3); Est GFR (African American) 130.8 ml/min; Est GFR (Non-African American) 112.9 ml/min; Magnesium 1.7 mg/dl (1.7-2.4); Phosphorus 3.1 mg/dl (2.5-4.9); Potassium 3.2 mmol/L (3.5-5.1)
--- NOTE | 2023-07-03 08:22 | Communication Note ---
Date of Service: July 03, 2023 - Chart reviewed. - This is a 32 y/o male with history of complex Crohn's disease, recent prolonged hospitalization with perforated duodenal ulcer and multiple abdominal surgeries. Now with open abd wound and excessive drainage from EC fistulae. - Given his complexity he would be better served at a tertiary care facility and this is being arranged - Please recall GI if any questions or concerns I have discussed the patient's management with the advanced practitioner. Please refer to the nurse practitioner's note for the documented findings and plan of care. From GI perspective, he can stay here and no need for transfer, he will need to follow up as OP with IBD center. Currently, continue supportive care. Surgery should contribute in his management. Recall GI if needed.
[2023-07-03] MEDS: GABAPENTIN 300 MG CAP PO SCH ×2 (08:35→14:16)
[2023-07-03] MEDS: THIAMINE HCL 100 MG TAB PO SCH (08:35)
[2023-07-03] MEDS: FOLIC ACID 1 MG TAB PO SCH (08:35)
[2023-07-03] MEDS: PANTOprazole 40 MG TAB PO SCH (08:35)
[2023-07-03] MEDS: MAGNESIUM OXIDE 400 MG TAB PO SCH (08:35)
[2023-07-03] MEDS: CYANOCOBALAMIN (B-12) 500 MCG TABLET PO SCH (08:35)
[2023-07-03] MEDS: BUPRENORPHINE/NALOXONE 8/2 MG TAB SL SCH (08:35)
[2023-07-03] MEDS ORDERED: oxyCODONE HCL IR 5 MG TAB (IMMEDIATE RELEASE) PO PRN (09:44)
[2023-07-03] MEDS ORDERED: HYDROmorphone INJ 0.5 MG/0.5 ML SYR IV STA (09:44)
[2023-07-03] MEDS ORDERED: HYDROmorphone INJ 0.5 MG/0.5 ML SYR IV PRN (09:44)
[2023-07-03] MEDS ORDERED: DULoxetine HCL 30 MG CAP PO SCH (10:00)
[2023-07-03] MEDS ORDERED: POTASSIUM CHLORIDE 20 MEQ/15 ML UDC PO STA (10:02)
--- NOTE | 2023-07-03 10:04 | Hospitalist Progress Note ---
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 Hospitalized at [facility] 04/08-05/26/23 2/2 perforated duodenum s/p extensive abd surgeries and intraabdominal abscesses now with open abdominal wound and enterocutaneous fistula. Also with known duodenal stent migration that patient refused to have repeat EGD for retrieval. Per discussion with spray i painter plan is to transfer the patient pending bed availability. Currently [facility] ICU does not have beds, but will remain in contact with [facility] when possible bed available. sepsis ruled out and he is doing well off abs hypotension likely related to hypovolemia in setting of narcotic use. Enterocutaneous fistula s/p multiple abd surgeries hx of Crohn's disease s/p proctocolectomy and end ileostomy pt with increased bloody drainage to wound now leaking out around the ostomy bag and causing increased redness,excoriation and tenderness cont ICU care, now requiring norepinephrine for support Broad-spectrum antibiotics with daptomycin and Zosyn empirically given due to possible sepsis, and these have been stopped. Wound care continues to see patient. Cont ostomy management per them. Off pressor support on 07/01 and transitioned out of ICU. Still with >1L output from fistula daily GI consult and spoke with provider who states patient mostly focused on asking her for dilaudid multiple possible therapies for this, however, he first needs to establish care with a GI doctor outpatient. I disucssed the importance of this with patient and . Planning for a repeat colonoscopy through the ostomy to rerieve the migrated stent currently in the small bowel as outpatient, mid Jun. Offered octreotide which patient declined because it was an injection We discussed TPN which will not happen during this hospitalization and could be organized with his GI provider as outpatient Patient does vape marijuana and I explained that although we have a policy for administering MJ here, that excludes combustibles. MELISSA Hyperkalemia Acute Hyponatremia likely in setting of pre renal acute kidney injury vs ATN insetting of hypotension with ongoing draining EC fistula. bun 77, cr 11.3; baseline 0.5 serial labs, DDAVP ordered x 2 per spray i painter creatinine improving to 1.47 today, making urine more now-->acute renal failure almost resolved. nephrology following and notes there is an increased risk of intermittent renal failure given ongoing drainage from ostomy site. Na is improved with use of saline-->desmopressin required. Na is 130 today, cont clear liquids PO as tolerated. He is still requiring norepinephrine but received albumin this morning as well as a small IVF bolus. Trend BMP in am. Chronic Pain pt on Suboxone therapy, continued per ICU pt also uses medical marijuana Now receiving dilaudid 0.5mg IV q4h-->pt became upset when this was decreased to q8h and reports severe pain. Added oral oxycodone to see if this would offer more consistent pain control and lessen the need for the dilaudid. Appears this regimen is acceptable for coverage for the time being. Encouraged to use PO option as often as possible. WOCN for assistance with topical support for excoriated area on lower abdomen. consulted Pain managment. Tobacco abuse nicotine patch ordered cessation advised Previous alcohol abuse abstinent for 2 months reports history of peripheral neuropathy for this issue continue folic acid/thiamine and B12 supplementation as ordered. 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 Follow-up with Neurology once discharged. Lines: R femoral line placed in ED Salazar Catheter placed in ED draining dark/kathy urine FULL CODE DVT ppx: Heparin per spray i painter PCP: [facility] for monitoring with daily labs and monitoring output of ostomy. Plan for dc home when pain better under control, he is draining less? and he is eating-which he is doing now. I spent a total of 60minutes coordinating, documenting, and providing care for this patient excluding time spent in the performance of separately billed services [facility] Admission and Anticipated Discharge Date Admission Date: June 28, 2023 Subjective 32-year-old man with history of Crohn's disease status post colectomy with permanent ileostomy, alcohol abuse, history of narcotic abuse currently on Suboxone and tobacco abuse presents with electrolyte abnormalities. Admitted to ICU. Physical Exam Physical Exam: CONSTITUTIONAL: WNWD, vitals as above, moderate distress and becomes frantic grabbing head 2/2 pain EYES: normal conjunctivae, no scleral icterus ENT: external ear and nose normal, MMM NECK: trachea midline RESPIRATORY: clear to auscultation bilaterally, no crackles, rales or wheezes, normal respiratory effort CARDIOVASCULAR: regular rate and rhythm, S1 and 2 heard without murmurs, gallops or rubs, no JVD, no peripheral edema CHEST: inspection of chest was normal GASTROINTESTINAL: soft, generalized nonfocal TTP, ostomy bag in place with red powerade sitting in the bag MUSCULOSKELETAL: generalized weakness, w/c bound, head is normocephalic and atraumatic SKIN: warm and dry NEUROLOGIC: CN 2-12 grossly intact, no sensory deficit, normal cognition, normal speech, no tremor PSYCHIATRIC: alert cooperative and oriented to person, place and time. Euthymic mood, makes good eye contact, language grossly intact, recent and remote memory grossly intact. Results & Data Results & Data Vital Signs (Past 12 Hours) Vital Signs Temp Pulse Pulse Resp BP Pulse Ox O2 Del Method 07/03/23 08:13 37.2 C 72 19 102/62 96 Room Air 07/03/23 06:47 72 07/03/23 04:35 36.6 C 81 20 99/61 L 94 Room Air 07/02/23 22:28 37.1 C 82 18 106/65 92 Room Air 07/02/23 22:14 75 Laboratory Results Short CBC 07/03/23 Range/Units 05:32 WBC 9.62 (4.8-10.8) K/ul Hgb 8.6 L (14.0-18.0) g/dl Hct 25.7 L (42.0-52.0) % Plt Count 294 (130-400) K/uL BMP 07/03/23 05:32 Sodium 132 L Potassium 3.2 L Chloride 102 Carbon Dioxide 23 BUN 4 L Creatinine 0.88 Glucose 87 Calcium 8.4 L Medications Administered Current Inpatient Medications Buprenorphine/Naloxone (Buprenorphine/Naloxone 8/2 Mg Tab) 2 tab SL DAILY [facility] Stop: 07/29/23 08:59 Last Admin: 07/03/23 08:35 Dose: 2 tab Buprenorphine/Naloxone (Buprenorphine/Naloxone 2/0.5mg 1 Tab) 1 tab PO DAILY [facility] Stop: 08/02/23 10:29 Cyanocobalamin (Cyanocobalamin (B-12) 500 Mcg Tablet) 1,000 mcg PO DAILY [facility] Stop: 07/29/23 08:59 Last Admin: 07/03/23 08:35 Dose: 1,000 mcg Duloxetine HCl (Duloxetine Hcl 30 Mg Cap) 30 mg PO QAM [facility] Stop: 08/02/23 09:59 Folic Acid (Folic Acid 1 Mg Tab) 1 mg PO DAILY [facility] Stop: 07/29/23 08:59 Last Admin: 07/03/23 08:35 Dose: 1 mg Gabapentin (Gabapentin 300 Mg Cap) 300 mg PO TID [facility] Stop: 07/31/23 20:59 Last Admin: 07/03/23 08:35 Dose: 300 mg Heparin Sodium (Porcine) (Heparin Sod 5,000 Unit/0.5 Ml Vial) 5,000 units SQ Q8 [facility] Stop: 07/28/23 21:59 Last Admin: 07/03/23 05:08 Dose: 5,000 units Hydromorphone HCl (Hydromorphone Inj 0.5 Mg/0.5 Ml Syr) 0.5 mg IV Q12H PRN PRN Reason: Severe Pain (Scale 7, 8, 9,10) Stop: 07/14/23 18:21 Albumin Human (Albumin 5%) 250 mls @ 500 mls/hr IV PRN PRN PRN Reason: Undecided Stop: 07/04/23 07:42 Last Infusion: 07/03/23 07:59 Dose: Infused Potassium Chloride 20 meq/Magnesium Sulfate 2 gm/ Sodium Chloride 514 mls @ 125 mls/hr IV .Q4H7M [facility] Stop: 07/03/23 14:21 Magnesium Oxide (Magnesium Oxide 400 Mg Tab) 400 mg PO BID [facility] Stop: 07/31/23 08:59 Last Admin: 07/03/23 08:35 Dose: 400 mg Melatonin (Melatonin 3 Mg Tab) 3 mg PO HS PRN PRN Reason: Sleep Stop: 07/29/23 23:31 Last Admin: 07/02/23 21:41 Dose: 3 mg Miscellaneous (Remove Nicoderm Patch) 1 each N/A DAILY@0859 [facility] Stop: 07/29/23 08:58 Last Admin: 07/03/23 08:34 Dose: 1 each Nicotine (Nicotine 21 Mg/24 Hr Tdsy) 21 mg TD QAM [facility] Stop: 07/28/23 16:37 Last Admin: 07/02/23 09:10 Dose: 21 mg Oxycodone HCl (Oxycodone Hcl Ir 5 Mg Tab (Immediate Release)) 7.5 mg PO Q4H PRN PRN Reason: Severe Pain (Scale 7, 8, 9,10) Stop: 07/14/23 18:21 Pantoprazole Sodium (Pantoprazole 40 Mg Tab) 40 mg PO AMHS [facility] Stop: 07/28/23 20:59 Last Admin: 07/03/23 08:35 Dose: 40 mg Potassium Chloride (Potassium Chloride 20 Meq/15 Ml Udc) 40 meq PO NOW STA Stop: 07/03/23 10:03 Thiamine HCl (Thiamine Hcl 100 Mg Tab) 100 mg PO DAILY [facility] Stop: 07/29/23 08:59 Last Admin: 07/03/23 08:35 Dose: 100 mg (1) Acute kidney failure Acute renal failure type: unspecified Qualified Code(s): N17.9 - Acute kidney failure, unspecified
--- NOTE | 2023-07-03 10:14 | Nephrology Progress Note ---
Date of Service July 03, 2023 Assessment & Plan Admission and Anticipated Discharge Date Admission Date: June 28, 2023 Subjective Assessment & Plan (1) Acute kidney failure: Plan: Severe acute renal failure on presentation with a creatinine of 13 with a baseline of 1. However since being admitted with the use of IV fluid and necessary medical stabilization his renal function continues to improve to near baseline. good urine ouput past 24 hrs and creat already under 1 now--baseline -but given his GI tract with ileostomy multiple fistula Crohn's disease he is at a very high risk of developing prerenal type acute renal failure intermittently. daily bmp Low k and will give Kcl 40 meq (2) Acute hyponatremia: Plan: Hypovolemic hyponatremia in the setting of ileostomy nausea vomiting increase output and poor oral intake. Sodium was 110 and now is 135. Subjective No new issues. k is low today. making urine. renal function normal. Does not like to be bothered Review of Systems Review of Systems: All systems reviewed & are unremarkable except as noted in Subjective Physical Exam Constitutional: well developed, well nourished, + frail appearing and cooperative; no acute distress Eyes: EOM intact bilaterally ENMT: Ears: no external ear abnormality Nose: no external nose abnormality Mouth: + dry oral mucous membranes Neck: no nuchal rigidity Respiratory: normal respiratory effort Auscultation: + diminished lung sounds (markedly) Cardiovascular: RRR, no murmur, no edema Gastrointestinal (Abdomen): Inspection/Auscultation: normal bowel sounds and + abdominal surgical scar (large ostomy present) Percussion/Palpation: + abdomen tender and abdomen soft Musculoskeletal: Extremities: strength 5/5 throughout Skin: no rashes, warm and dry Neurologic: reis, fluent speech, no tremor Results & Data Vital Signs (Past 12 Hours) Vital Signs Temp Pulse Pulse Resp BP Pulse Ox O2 Del Method 07/03/23 08:13 37.2 C 72 19 102/62 96 Room Air 07/03/23 06:47 72 07/03/23 04:35 36.6 C 81 20 99/61 L 94 Room Air 07/02/23 22:28 37.1 C 82 18 106/65 92 Room Air 07/02/23 22:14 75
[2023-07-03] MEDS ORDERED: MAGNESIUM SULFATE IV SCH (10:15)
[2023-07-03] MEDS ORDERED: SODIUM CHLORIDE 0.9% IV SCH (10:15)
[2023-07-03] MEDS ORDERED: POTASSIUM CHLORIDE IV SCH (10:15)
[2023-07-03] MEDS ORDERED: BUPRENORPHINE/NALOXONE 2/0.5MG 1 TAB PO SCH (10:30)
[2023-07-03] MEDS: NICOTINE 21 MG/24 HR TDSY TD SCH (10:54)
--- NOTE | 2023-07-03 11:25 | Pain Management Consultation ---
Date of Consultation July 03, 2023 Assessment & Plan (1) Crohn's disease: Digestive disease complication type: with fistula G astrointestinal tract location: unspecified location Qualified Code(s): K50.913 - Crohn's disease, unspecified, with fistula (2) Open abdominal wall wound: Plan 1. Recommend increasing his Suboxone to 18/2.5mg daily. Orders are written. He should continue to work with his outpatient prescriber for further assistance once discharged. 2. Will increase his oxycodone to 7.5 mg p.o. every 6 as needed pain. 3. Recommend diminishing reliance on IV hydromorphone. Order was changed to hydromorphone 0.5 mg IV every 12 with additional dosing available for wound dressing changes. 4. Recommend initiation of duloxetine 30 mg p.o. every morning to augment descending pain regulatory pathways. 5. Thank you for this consultation please call should you have further questions. Pain management to sign off at this time. History of Present Illness Attending Physician: Elena Gupta DO History of Present Illness 32-year-old male with history of Crohn's disease permanent ileostomy and a corresponding history of alcohol and opiate abuse currently being treated by Andrew Parra at [facility] with Suboxone. He presented to the [facility] emergency room on 06/28/23 having had a recent prolonged stay in the surgical ICU at [facility] with intra-abdominal abscesses and a perforated gastric ulcer. He currently has an open abdomen with wound dressing in place. He has been having difficulty with pain control during his hospitalizations and was receiving predominantly IV pain medications while at [facility] per record. Patient had been requiring heavy use of IV hydromorphone and been hesitant to utilize his home dose of Suboxone. Pain management was consulted to develop a multimodal plan for his current pain control given his open abdomen status. Patient states pain is sharp aching ranging between 4-8 out of 10 currently 8 out of 10. Pain is located over the left of midline of his abdomen. He reports he has been having multiple dressing changes which have been particularly painful for him. He denies prior utilization of duloxetine in the past. He reports that the oxycodone at 5 mg is not sufficient for controlling his current pain. Pain Assessment Full Body Front + Back: 2 1. [facility] Combined Pain Scale: 7-Severe - Pain prevents productive activity. Impossible to tolerate. Pain scale - at its best (0-10): 4 Pain scale - at its worst (0-10): 7 Allergies Allergy/AdvReac Type Severity Reaction Status Date / Time Fish Containing Products Allergy Verified 06/29/23 09:35 fish derived Allergy Verified 06/29/23 09:35 fish oil Allergy Verified 06/29/23 09:35 shellfish derived Allergy Verified 06/29/23 09:35 adalimumab [From Humira] AdvReac Severe CONVULSIONS Verified 06/28/23 15:26 infliximab [From Remicade] AdvReac Severe CONVULSIONS Verified 06/28/23 15:26 methotrexate AdvReac Severe CONVULSIONS Verified 06/28/23 15:26 SEAFOOD AdvReac Intermediate BLOATING/GAS Uncoded 06/28/23 15:26 DISCOMFORT Home Medications Medication Instructions Recorded Confirmed Type buprenorphine 8 mg-naloxone 2 mg 2 tab sublingual DAILY 06/22/22 06/28/23 History sublingual tablet pantoprazole 40 mg tablet,delayed 40 mg PO AMHS 06/22/22 06/28/23 History release diclofenac sodium 75 mg 75 mg PO BID 08/02/22 06/28/23 History tablet,delayed release folic acid 1 mg tablet 1 mg PO QAM 08/02/22 06/28/23 History mecobalamin (vitamin B12) 1,000 1,000 mcg PO QAM 08/02/22 06/28/23 History mcg chewable tablet tadalafil 5 mg tablet 5 mg PO DAILY PRN Erectile 08/02/22 06/28/23 History Dysfunction thiamine mononitrate (vit B1) 100 100 mg PO QAM 08/02/22 06/28/23 History mg tablet gabapentin 300 mg capsule 300 mg PO TID 04/07/23 06/28/23 History Pain History Pain Intensity Pain scale - at its best (0-10): 4 Pain scale - at its worst (0-10): 7 Patient History Medical History (Updated 07/03/23 @ 11:32 by Carmelita Read DO) Open abdominal wall wound Narcotic abuse Tobacco use Alcohol abuse Acute anxiety Depression Arthritis Crohn disease Surgical History History of wisdom tooth extraction History of knee surgery Bilateral knee scopes History of hernia surgery History of colon surgery Family History Other Diabetes Social History Smoking Status: Current every day smoker Tobacco Type: Cigarettes Cigarettes Per Day: 1/2 pack of cigarettes; Second Hand Exposure: Yes; Do You Dip or Chew Tobacco: No; Hx Alcohol Use: No Hx Substance Use: Yes Prescribed Medications: Former Misuse of Rx Meds Non- Prescribed Medications: Marijuana Last Used Substance Other:: 06/28/2023 Substance Use Type Other:: suboxone Preferred Language: Maltese Communication Ability: Effective Co Founder And President Required: No Beliefs That Will Affect Care: None Current Living Situation: Significant Other Other Information That Helps Us Care for You: No Feels Safe at Home: Yes Safety Concerns: Feels Safe At This Time Assistive Devices: Walker and Wheelchair Physical Exam 2 Constitutional: WD/WN, vitals as above Eyes: PERRL, conjunctivae normal, anicteric sclerae ENMT: Ears: no external ear abnormality Nose: no external nose abnormality Mouth: no lip abnormality Neck: normal visual inspection Respiratory: normal respiratory effort; no respiratory distress Gastrointestinal (Abdomen): Inspection/Auscultation: + abdominal surgical incision; + abdomen abnormal to inspection Patient has an open abdomen with an ostomy left lower quadrant in place. Wound care dressing covering both open abdomen and ostomy. Patient with noted tenderness when he touches abdomen. I did not palpate his abdomen due to his hesitation at today's exam. Musculoskeletal: no cyanosis or clubbing, extremities motor strength 5/5 Psychiatric: A+Ox3, euthymic affect Results (Pain Clinic) Diagnostic Review CT: non enhanced and reports reviewed CT Findings: 06/28/23 CT OF THE ABDOMEN AND PELVIS WITHOUT CONTRAST CLINICAL HISTORY: hypotension, h/o perf PUD, open belly would, COMPARISON STUDY: CT of the abdomen and pelvis April 07, 2023. TECHNIQUE: Axial images of the abdomen and pelvis were obtained without IV contrast. Images were reviewed in the axial, sagittal, and coronal planes. Automated exposure control was utilized for the study. A dose lowering technique was utilized adhering to the principles of ALARA. FINDINGS: No pneumatosis, free air or portal venous gas is present. Evaluation of the abdomen and pelvis is suboptimal on this unenhanced examination. Liver, spleen, adrenal glands and pancreas are unremarkable. There are a few punctate left renal calculi. There are no ureteral calculi and there is no hydronephrosis. A Salazar balloon and gas within the bladder are present. There are postoperative findings consistent with proctocolectomy with left lower quadrant ileostomy. There is no evidence for a bowel obstruction. An open wound is noted. Enterocutaneous fistula is noted on image 166 of [id number]. No associated fluid collection is noted. A small perigastric density measures 4.5 x 1.1 cm. Small amount of fluid along the right hepatic lobe is noted. This appears loculated and measures 2.8 x 1.7 cm. This was shown on prior CT. Gallstone within the gallbladder is present. Gallbladder is not distended. Radiodensities within the distal stomach favor an endoscopic clips. In addition, there is a 5.3 cm radiodensity within the right mid abdomen, within the distal jejunum or proximal ileum. This represents a stent with possible stent migration. This does not appear to be within the duodenum. Multiple mildly enlarged abdominal lymph nodes are noted. Index ileocolic node on image 185 measures 1.4 x 1.2 cm. A portacaval lymph node measures 2.9 x 1.5 cm. Right femoral central venous catheter is in place. IMPRESSION: 1. Status post proctocolectomy with left lower quadrant ileostomy. No evidence for a bowel obstruction. Open wound with enterocutaneous fistula, as described above. 2. Endoscopic stent within the right mid abdomen, likely within the distal jejunum or proximal ileum. This raises the possibility of stent migration. Correlation with stent placement is recommended. 3. 4.5 x 1.1 cm lobulated perigastric density at site of free air on prior CT. This may reflect a tiny residual collection or scar. No drainable fluid collections. 4. Cholelithiasis. 5. Punctate left renal calculi. No ureteral calculi. No hydronephrosis. 6. Mildly enlarged abdominal lymph nodes, as described above. These are probably reactive but can be assessed on follow-up exams to ensure resolution.
--- NOTE | 2023-07-03 14:20 | Discharge Summary ---
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 Patient was hospitalized at [facility] [place]. He was initially admitted for sepsis in setting of perforated duodenal ulcer. He required stent placement and complicated abscesses status post IR drainage and Stent migration. He did complete course of IV antibiotics. CT imaging revealed no further progression of duodenal stent migration. Patient at that time refused further EGDs to retrieve the stent. He initially was managed with TPN however he was advanced off of this per general surgery and GI. Since being discharged home he has had to maintain an open abdomen wound in setting of enterocutaneous fistula requiring wound care. at bedside states that he has had increased drainage from abdominal wound with bloody drainage. He also has a colostomy bag draining bloody discharge as well. at bedside gives most of history and states that he has been pale and complaining of being dizzy over the last few days. She had been monitoring his temperature and denies any fever, but patient has intermittent shakes. Over the last 2 days he also had nausea and vomiting. He denies any abd pain at this current time. She also elicits that he has not urinated in 2 days. Overall appetite has been poor last several days. He has not taken any of his meds today either. In ED patient was significantly hypotensive with critical MELISSA with BUN 77 and creatinine of 11.30, potassium 6.1 [address] sodium of 110[address] CT abdomen pelvis obtained which revealed status post proctocolectomy with left lower Ileostomy, Open wound with enterocutaneous fistula, duodenal stent with migration, 4.5 x 1cm perigastric density likely residual scare and enlarged abdominal lymph nodes. He was started on broad spectrum antibiotics and hospitalist service as well as filler in was consulted for admission. Bus Repair Supervisor called for transfer to [facility] per patient request; however there is no bed availability at this time and this will be revisited pending call from [facility]. Principal Dx & Hospital Course #1 = Principal Diagnosis (1) Acute kidney failure: (2) ATN (acute tubular necrosis): (3) Acute hyponatremia: (4) Enterocutaneous fistula: (5) Hyperkalemia: (6) Anemia: (7) Hypotension (arterial): Updated Medication List Medication Instructions Recorded Confirmed Type buprenorphine 8 mg-naloxone 2 mg 2 tab sublingual DAILY 06/22/22 06/28/23 History sublingual tablet pantoprazole 40 mg tablet,delayed 40 mg PO AMHS 06/22/22 06/28/23 History release diclofenac sodium 75 mg 75 mg PO BID 08/02/22 06/28/23 History tablet,delayed release folic acid 1 mg tablet 1 mg PO QAM 08/02/22 06/28/23 History mecobalamin (vitamin B12) 1,000 1,000 mcg PO QAM 08/02/22 06/28/23 History mcg chewable tablet tadalafil 5 mg tablet 5 mg PO DAILY PRN Erectile 08/02/22 06/28/23 History Dysfunction thiamine mononitrate (vit B1) 100 100 mg PO QAM 08/02/22 06/28/23 History mg tablet gabapentin 300 mg capsule 300 mg PO TID 04/07/23 06/28/23 History duloxetine 30 mg capsule,delayed 30 mg PO QAM #30 caps 07/03/23 Rx release oxycodone-acetaminophen 7.5 mg-325 1 tab PO Q8H PRN pain #10 tabs 07/03/23 Rx mg tablet (Percocet) Hospital Stay Data Consultations 06/28/23 14:51 ED Decision to Admit Stat 06/28/23 14:52 Consult Bus Repair Supervisor Stat 06/28/23 16:05 Consult Nephrology Routine 06/30/23 18:23 Consult Pain Management Routine 07/01/23 18:29 Consult Gastroenterology Routine Diagnostic Imagining Performed 06/28/23 13:18 CT abd pelvis wo con Stat Pending Results Patient Have Any Pending Studies at Discharge: No Discharge Instructions Given to Patient (Per Discharging Provider) Please take all medications as instructed on discharge list below. It is recommended that you followup with your primary care provider within one week to touch base on your pain, refill pain medications, followup on how you are tolerating the new medications, and recheck your labwork as you are at higher risk for electrolyte abnormalities with your ongoing drainage. Regarding your bags, the best options at this point will be to connect with your home health provider for these supplies, or speak with your surgical provider who created the stoma. They will be able to give you guidance on where to obtain more, and provide prescriptions for that, also. Smoking cessation is strongly recommended. Alternative forms of medical marijuana would be safer for your lungs. Please followup with your pain specialist regarding the changes made to your suboxone therapy. It was a pleasure taking care of you! Please call if you have any questions or problems. You can reach a [facility] hospitalist on duty at [facility] 24 hours a day by calling [phone]. Take care of yourself. Elena Gupta, DO [facility] Hospitalist
== END 2023-07-03 17:36 | disposition home health service (06) | DRG 683 ==
LOC: ED 11:08 → 1E 15:11 → SUATTDRO 15:11 → 1E 16:05 → 2S 07-02 18:57

== ENCOUNTER 2025-05-21 15:45 | Inpatient (IN) ==
[2025-05-21 16:27] LABS: Hematocrit (blood only) 35.3 % (42.0-52.0); Hemoglobin 11.6 g/dl (14.0-18.0); Mean Corpuscular Hemoglobin 27.0 pg (25.0-34.0); Mean Corpuscular Volume 82.3 fL (80.0-100.0); Platelet Count 247 K/uL (130-400); RDW Standard Deviation 47.4 fL (36.4-46.3); Red Blood Count 4.29 M/uL (4.70-6.10); White Blood Count 14.52 K/ul (4.8-10.8)
[2025-05-21 16:43] LABS: Alanine Aminotransferase 46 U/L (7-52); Albumin Globulin Ratio 0.7 (0.9-2); Albumin Level 3.2 gm/dl (3.4-5.0); Alkaline Phosphatase 327 U/L (34-104); Anion Gap 10 (3-11); Bilirubin,Total 2.9 mg/dl (0.2-1.0); Blood Urea Nitrogen 14 mg/dl (6-23); Calcium 8.7 mg/dl (8.6-10.3); Carbon Dioxide 24 mmol/L (21-32); Chloride 100 mmol/L (98-107); Globulin 4.7 gm/dl (2.5-4.0); Glucose 123 mg/dl (70-99(Fasting)); Potassium 3.9 mmol/L (3.5-5.1); Sodium 134 mmol/L (136-145); Total Protein 7.9 gm/dl (6.0-8.3)
--- NOTE | 2025-05-21 17:08 | XRay Report ---
Chest radiograph, one view History: Chest pain Comparison: 06/28/2023 Findings: Single AP view of the chest performed. No focal consolidation or pleural effusion. No pneumothorax. Right upper extremity PICC tip is at the lower SVC. Small focus of atelectasis at the lingula, similar to prior exams. The cardiomediastinal silhouette is within normal limits. Normal pulmonary vascularity. No evidence for lymphadenopathy. No visualized bony or soft tissue abnormality. Impression: No acute process Electronically signed by Casper Martins 05-21-2025 5:07 PM
[2025-05-21 17:27] LABS: Immature Granulocytes # (auto) 0.10 K/uL (0.01-0.20); Immature Granulocytes % (auto) 0.7 %
[2025-05-21 18:41] LABS: Magnesium 1.8 mg/dl (1.7-2.4)
--- NOTE | 2025-05-21 19:00 | Emergency Department Note ---
Impression & Plan Infection, Acute kidney injury ED Provider Note CHIEF COMPLAINT: headache, fatigue HISTORY OF PRESENTING ILLNESS: Patient is a 34-year-old male presents to the emergency department today for complaints of headache and fatigue. He reports an onset of 4 to 5 days ago with no improvement in his symptoms. He does have a significant history of Crohn's disease with an EC fistula and ileostomy. He also has a PICC line placed where he receives TPN. He is concern for infection due to some fevers and chills and just not feeling right. He does typically follow closely with [facility] in [place] as well as GI there. Patient denies chest pain, sob, breathing difficulties, abdominal pain, blood in stool or urine, any recent illness, or any recent travel. REVIEW OF SYSTEMS: See HPI for pertinent positives and pertinent negatives. ALLERGIES: See below MEDICATIONS: See below PAST MEDICAL HISTORY: See below PHYSICAL EXAM: VITALS: Vitals are noted on the nurse's note and reviewed by myself. GENERAL: Non toxic, in no acute distress, non-diaphoretic. SKIN: Capillary refill <2 sec. EYES: PERRLA. EOMI. Conjunctivae without injection, sclerae without icterus. MOUTH: Mucous membranes moist. Uvula midline. Airway patent. NECK: Supple without nuchal rigidity. HEART: Regular rate and rhythm without murmurs gallops or rubs. LUNGS: Clear to auscultation bilaterally without wheezes, rales or rhonchi. No retractions or accessory muscle use. ABDOMEN: EC fistula drain to the right abdomen, ileostomy to the left. Positive bowel sounds x 4. Normal tympanic percussion. Soft, nontender to palpation. No masses or hepatosplenomegaly. Walker sign negative. No CVA tenderness. No guarding, rigidity, or rebound tenderness. No focal RLQ or LLQ tenderness. MUSCULOSKELETAL: No gross musculoskeletal defects. NEURO: Patient was alert and oriented. No focal neurological deficits. DIFFERENTIAL DIAGNOSIS: Differential diagnosis includes appendicitis, diverticulitis, constipation, gastroenteritis, bowel obstruction, cholecystitis, appendicitis, inflammatory bowel disease, renal colic, PUD, biliary pathology, pancreatitis, mesenteric ischemia, aortic pathology, infection, genitourinary, UTI, perforated viscus, among others. ED COURSE AND MEDICAL DECISION MAKING: HISTORY FROM INDEPENDENT HISTORIAN: History was provided by the patient and his significant other who acts as a secondary historian. MONITOR: Continuous ski base trimmer: Order was placed for continuous ski base trimmer. Patient was placed on the ski base trimmer and continuous pulse ox. Patient was noted to be in normal sinus rhythm at an initial rate of 80 bpm per my interpretation. EKG: EKG was interpreted by myself as normal sinus rhythm at a rate of 91 bpm. INTERPRETATION OF LABS: I interpreted the labs with full lab results as below in the lab section of this note. Laboratory results pertinent to the emergent complaint are discussed in the MDM section below. The patient was advised to follow up with their PCP and/or specialist(s) for further outpatient monitoring and management of any abnormal results. INTERPRETATION OF IMAGING: Imaging studies were interpreted by myself and read by radiology as per the imaging section of this note. The patient was advised to follow up with their PCP and/or specialist(s) for further outpatient management of any non-emergent abnormal findings. CHRONIC MEDICAL/SOCIAL CONDITIONS AFFECTING CARE: No social concerns were identified as barriers to patients care. EXTERNAL RECORDS REVIEWED: Patient's previous hospitalist progress note from 07/03/2023 and nephrology progress note from 07/03/2023. ESCALATION OF CARE CONSIDERED: I considered admission on this patient due to concern for infection and cholelithiasis. CONSULTATIONS: I had a meaningful discussion about this patient with Dr. Brady who agrees with my assessment and the treatment plan. I also spoke with Dr. Oliveira who accepts the patient for admission to the hospital. SUMMARY: I examined the patient for complaints of fatigue, headache, flulike symptoms. A physical exam and history were performed. Nursing notes, EMR, and medication list were personally reviewed. CBC shows a leukocytosis with a white blood cell count of 14.52. Hemoglobin was 11.6. No thrombocytopenia. Procalcitonin of 1.11. CMP showed a sodium of 134, creatinine of 0.53. Total bilirubin was noted to be 2.9, direct bilirubin was ordered and was 1.9. Alkaline phosphatase of 327. The patient was then ordered a CT of the abdomen and pelvis that showed cholelithiasis, ileostomy as well as the EC fistula, stable endoscopy send, and new nodular densities at the lung bases. The patient was given Zosyn 4.5 mg here in the emergency department. I did consult with Dr. Oliveira who accepts the patient for admission to the hospital. DIAGNOSIS: unknown source of infection, gallstones TREATMENT PLAN/DISCHARGE INSTRUCTIONS: Admit to hospitalist services. The chart was completed utilizing [employer] Speech voice recognition software.Grammatical errors, random word insertions, pronoun errors, and incomplete sentences are an occasional consequence of this system due to software limitations, ambient noise, and hardware issues.Any formal questions or concerns about the content, text, or information contained within the body of this dictation should be directly addressed to the physician for clarification. Past Med/Surg History Problem List (Updated 05/22/25 @ 21:06 by KARRIE Walls) Acute kidney injury (Acute) Infection (Acute) Hypotension (arterial) Hypovolemia with active loss of fluid (Acute) Acute dehydration (Acute) Enterocutaneous fistula (Acute) Crohn's disease (Acute) Anemia ATN (acute tubular necrosis) Sepsis associated hypotension Hyperkalemia Acute hyponatremia Dehydration Acute kidney failure (Acute) Enterocutaneous fistula Alcohol withdrawal Abdominal pain Nausea & vomiting Narcotic abuse Tobacco use Alcohol abuse Testicle swelling History of hernia surgery History of colon surgery Crohn disease (Chronic) Medical History Open abdominal wall wound Acute anxiety Depression Arthritis Surgical History History of wisdom tooth extraction History of knee surgery Bilateral knee scopes Family History Other Diabetes Social History Smoking Status: Current every day smoker Tobacco Type: Cigarettes Cigarettes Per Day: 1 pack per day; Second Hand Exposure: Yes; Do You Dip or Chew Tobacco: No; Hx Alcohol Use: Yes Alcohol type: beer Hx Substance Use: Yes Prescribed Medications: Former Misuse of Rx Meds Non- Prescribed Medications: Marijuana Last Used Substance: Hours (ago) Last Used Substance Other:: 06/28/2023 Substance Use Type Other:: suboxone Preferred Language: Yoruba Communication Ability: Effective Fur Dressing Supervisor Required: No Beliefs That Will Affect Care: None Current Living Situation: Significant Other Other Information That Helps Us Care for You: No Feels Safe at Home: Yes Safety Concerns: Feels Safe At This Time Assistive Devices: Lift Chair, Walker and Wheelchair Allergies Allergies Allergy/AdvReac Type Severity Reaction Status Date / Time Fish Containing Products Allergy Unknown Verified 05/21/25 21:13 fish derived Allergy Unknown Verified 05/21/25 21:13 fish oil Allergy Unknown Verified 05/21/25 21:13 shellfish derived Allergy Unknown Verified 05/21/25 21:13 adalimumab [From Humira] AdvReac Severe CONVULSIONS Verified 05/21/25 21:13 infliximab [From Remicade] AdvReac Severe CONVULSIONS Verified 05/21/25 21:13 methotrexate AdvReac Severe CONVULSIONS Verified 05/21/25 21:13 SEAFOOD AdvReac Intermediate BLOATING/GAS Uncoded 05/21/25 21:13 DISCOMFORT Home Meds Home Medications Medication Instructions Recorded Confirmed buprenorphine 8 mg-naloxone 2 mg 2 tab sublingual DAILY 06/22/22 05/21/25 sublingual tablet tadalafil 5 mg tablet 5 mg PO DAILY PRN Erectile 08/02/22 05/21/25 Dysfunction gabapentin 300 mg capsule 300 mg PO TID 04/07/23 05/21/25 lansoprazole 30 mg delayed 30 mg PO AMHS 05/21/25 05/21/25 release,disintegrating tablet risankizumab-rzaa 360 mg/2.4 mL 360 mg subcut .EVERY 8 WEEKS 05/21/25 05/21/25 (150 mg/mL) subcut wearable injector (Cullen) Results & Data (ED) Vital Signs Vital Signs - 24 hr 05/21/25 22:00 Pulse Rate [Apical] 75 Pulse Rhythm [Apical] Regular Pulse Strength [Apical] Normal Respiratory Rate 16 Respiratory Effort / Characteristics Non-Labored Spontaneous Respiratory Depth Normal Respiratory Pattern Regular Blood Pressure [Right Arm] 109/58 L Blood Pressure Mean [Right Arm] 75 Blood Pressure Position [Right Arm] Lying Pulse Oximetry 97 Oxygen Delivery Method Room Air Laboratory Data 05/23/25 07:25 05/23/25 07:25 Lab Results 05/21/25 05/21/25 05/21/25 Range/Units 16:08 18:43 22:10 WBC 14.52 H (4.8-10.8) K/ul RBC 4.29 L (4.70-6.10) M/uL Hgb 11.6 L (14.0-18.0) g/dl Hct 35.3 L (42.0-52.0) % MCV 82.3 (80.0-100.0) fL MCH 27.0 (25.0-34.0) pg MCHC 32.9 (32.0-36.0) g/dL RDW Std Deviation 47.4 H (36.4-46.3) fL RDW Coeff of Mindi 15.8 H (11.5-14.5) % Plt Count 247 (130-400) K/uL MPV 12.3 (9.4-12.4) fL Immature Gran % (Auto) 0.7 % Neut % (Auto) 52.1 % Lymph % (Auto) 35.5 % [place] % (Auto) 10.4 % Eos % (Auto) 1.0 % Baso % (Auto) 0.3 % Neut # (Auto) 7.56 H (1.40-6.50) K/uL Lymph # (Auto) 5.15 H (1.20-3.40) K/uL [place] # (Auto) 1.51 H (0.11-0.59) K/uL Eos # (Auto) 0.15 (0.00-0.50) K/uL Baso # (Auto) 0.05 (0.00-0.20) K/uL Immature Gran # (Auto) 0.10 (0.01-0.20) K/uL Sodium 134 L (136-145) mmol/L Potassium 3.9 (3.5-5.1) mmol/L Chloride 100 (98-107) mmol/L Carbon Dioxide 24 (21-32) mmol/L Anion Gap 10 (3-11) BUN 14 (6-23) mg/dl Creatinine 0.56 L (0.6-1.4) mg/dl Est Cr Clr Drug Dosing Not Reportable eGFR 131.82 BUN/Creatinine Ratio 25.0 H (10-20) Glucose 123 H (70-99(Fasting)) mg/dl Calcium 8.7 (8.6-10.3) mg/dl Magnesium 1.8 (1.7-2.4) mg/dl Total Bilirubin 2.9 H (0.2-1.0) mg/dl Direct Bilirubin 1.9 H (0-0.2) mg/dl AST 37 (13-39) U/L ALT 46 (7-52) U/L Alkaline Phosphatase 327 H (34-104) U/L Total Protein 7.9 (6.0-8.3) gm/dl Albumin 3.2 L (3.4-5.0) gm/dl Globulin 4.7 H (2.5-4.0) gm/dl Albumin/Globulin Ratio 0.7 L (0.9-2) Procalcitonin 1.11 H (0-0.5) ng/ml Urine Color Dark Yellow Urine Appearance Clear (Clear) Urine pH 6.0 (4.5-7.5) Ur Specific [place] > 1.045 H (1.000-1.030) Urine Protein Trace H (Negative) Urine Glucose (UA) Negative (Negative) Urine Ketones Negative (Negative) Urine Blood Negative (Negative) Urine Nitrite Negative (Negative) Urine Bilirubin 2+ H (Negative) Urine Urobilinogen Negative (Negative) Ur Leukocyte Esterase Trace H (Negative) Urine WBC (Auto) 0-5 (0-5) /hpf Urine RBC (Auto) 0-2 (0-2) /hpf U Hyaline Cast (Auto) 0-2 (0-2) /lpf U Epithel Cells (Auto) 0-2 (0-2) /hpf Urine Bacteria (Auto) None Seen (None Seen) Urine Comment Adenovirus (PCR) Not Detected (NotDetected) B. pertussis DNA (PCR) Not Detected (NotDetected) B.parapertussis DNA PCR Not Detected (NotDetected) C. pneumoniae DNA (PCR) Not Detected (NotDetected) Coronavirus OC43 (PCR) Not Detected (NotDetected) Coronavirus HKU1 (PCR) Not Detected (NotDetected) Coronavirus 229E (PCR) Not Detected (NotDetected) SARS-CoV-2 (PCR) Not Detected (NotDetected) Coronavirus NL63 (PCR) Not Detected (NotDetected) Enterobacterales (PCR) DETECTED A (NotDetected) Human Metapneumovir PCR Not Detected (NotDetected) Influenza Type A (PCR) Not Detected (NotDetected) Influenza Type B (PCR) Not Detected (NotDetected) M. pneumoniae (PCR) Not Detected (NotDetected) Parainfluenza 1 (PCR) Not Detected (NotDetected) Parainfluenza 2 (PCR) Not Detected (NotDetected) Parainfluenza 3 (PCR) Not Detected (NotDetected) Parainfluenza 4 (PCR) Not Detected (NotDetected) RSV (PCR) Not Detected (NotDetected) Entero/Rhino (PCR) Not Detected (NotDetected) blaIMP Car res Gene PCR Not Detected (NotDetected) KPC-Carbap Res Gene PCR Not Detected (NotDetected) blaNDM Car Res Gene PCR Not Detected (NotDetected) OXA-48 Carbapenem Resis Gene (PCR) Not Detected (NotDetected) blaVIM Car Res Gene PCR Not Detected (NotDetected) CTX-M Gene Resistance (PCR) Not Detected (NotDetected) Bld Cult ID Panel PCR See PCR Comment (NotDetected) Administered Medications Azithromycin (Azithromycin 250 Mg Tab) 500 mg PO QAM [facility] Stop: 05/27/25 08:59 Last Admin: 05/23/25 08:46 Dose: 500 mg Documented By: sage Admin: 05/22/25 09:39 Dose: 500 mg Documented By: sage Buprenorphine/Naloxone (Buprenorphine/Naloxone 8/2 Mg Tab) 2 tab SL DAILY [facility] Stop: 06/21/25 08:59 Last Admin: 05/23/25 08:45 Dose: 2 tab Documented By: sage Admin: 05/22/25 08:24 Dose: 2 tab Documented By: sage Enoxaparin Sodium (Enoxaparin Inj 40 Mg/0.4 Ml Syr) 40 mg SQ QAM [facility] Stop: 06/21/25 08:59 Last Admin: 05/23/25 08:46 Dose: 40 mg Documented By: sage Admin: 05/22/25 08:25 Dose: 40 mg Documented By: sage Folic Acid (Folic Acid 1 Mg Tab) 1 mg PO QAM [facility] Stop: 06/21/25 08:59 Last Admin: 05/23/25 08:45 Dose: 1 mg Documented By: sage Admin: 05/22/25 08:25 Dose: 1 mg Documented By: sage Gabapentin (Gabapentin 300 Mg Cap) 300 mg PO TID [facility]NA Stop: 06/21/25 00:59 Last Admin: 05/23/25 21:06 Dose: 300 mg Documented By: Admin: 05/23/25 13:38 Dose: 300 mg Documented By: sgae Admin: 05/23/25 08:46 Dose: 300 mg Documented By: sage Admin: 05/22/25 21:14 Dose: 300 mg Documented By: Admin: 05/22/25 14:30 Dose: Not Given Documented By: Admin: 05/22/25 08:24 Dose: 300 mg Documented By: sage Admin: 05/22/25 02:07 Dose: Not Given Documented By: africa Heparin Sodium (Porcine) (Heparin 100 Unit/Ml 5ml Flush) 5 ml FLUSH PRN PRN PRN Reason: Flush Stop: 06/21/25 06:18 Last Admin: 05/23/25 21:06 Dose: 5 ml Documented By: Admin: 05/23/25 16:43 Dose: 5 ml Documented By: sage Admin: 05/22/25 06:24 Dose: 5 ml Documented By: AMY Cefepime HCl (Maxipime 2000mg) 2,000 mg in 20 mls @ 5 mls/min IV Q8H [facility]YNA; Protocol Stop: 06/05/25 05:59 Last Admin: 05/23/25 21:06 Dose: 5 mls/min Documented By: Admin: 05/23/25 13:38 Dose: 5 mls/min Documented By: sage Admin: 05/23/25 05:56 Dose: 5 mls/min Documented By: Admin: 05/22/25 21:14 Dose: 5 mls/min Documented By: Admin: 05/22/25 14:30 Dose: 5 mls/min Documented By: Admin: 05/22/25 06:16 Dose: 5 mls/min Documented By: AMY Lactated Ringer's (Lr) 1,000 mls @ 100 mls/hr IV .Q10H [facility] Stop: 05/26/25 14:59 Last Admin: 05/23/25 15:06 Dose: 100 mls/hr Documented By: sage Acetaminophen (Ofirmev) 1,000 mg in 100 mls @ 400 mls/hr IV Q8H PRN PRN Reason: Pain Stop: 05/26/25 19:13 Last Infusion: 05/23/25 20:05 Dose: Infused Documented By: Admin: 05/23/25 19:46 Dose: 400 mls/hr Documented By: HANNAH Lansoprazole (Lansoprazole 30 Mg Soltab) 30 mg PO BID [facility] Stop: 06/21/25 00:59 Last Admin: 05/23/25 21:06 Dose: 30 mg Documented By: Admin: 05/23/25 08:45 Dose: 30 mg Documented By: sage Admin: 05/22/25 21:14 Dose: 30 mg Documented By: Admin: 05/22/25 08:25 Dose: 30 mg Documented By: sage Admin: 05/22/25 03:29 Dose: 30 mg Documented By: africa Miscellaneous (Remove Nicoderm Patch) 1 each N/A DAILY@2058 [facility] Stop: 06/21/25 20:58 Last Admin: 05/23/25 21:09 Dose: 1 each Documented By: Admin: 05/22/25 21:14 Dose: 1 each Documented By: KAMILLE [facility]ivitamins ([facility]ivitamin Tab) [facility] [place]: 06/21/25 08:59 Last Admin: 05/23/25 08:46 Dose: 1 tab Documented By: sage Admin: 05/22/25 08:24 Dose: 1 tab Documented By: sage Nicotine (Nicotine 21 Mg/24 Hr Tdsy) 1 patch TD HS [facility] Stop: 06/20/25 23:54 Last Admin: 05/23/25 21:07 Dose: 1 patch Documented By: Admin: 05/22/25 21:14 Dose: 1 patch Documented By: Admin: 05/22/25 01:01 Dose: 1 patch Documented By: ODETTE Thiamine HCl (Thiamine Hcl 100 Mg Tab) 100 mg PO QAM [facility] Stop: 06/22/25 08:59 Last Admin: 05/23/25 08:46 Dose: 100 mg Documented By: sage Discontinued Medications Buprenorphine/Naloxone (Buprenorphine/Naloxone 8/2 Mg Tab) 1 tab SL ONCE ONE Stop: 05/23/25 09:32 Last Admin: 05/23/25 09:49 Dose: 1 tab Documented By: sage Diphenhydramine HCl (Diphenhydramine Capsule 25 Mg Cap) 25 mg PO HS PRN PRN Reason: Insomnia Stop: 06/21/25 01:35 Last Admin: 05/22/25 01:56 Dose: 25 mg Documented By: africa Diphenhydramine HCl (Diphenhydramine Capsule 25 Mg Cap) 25 mg PO NOW ONE Stop: 05/22/25 22:19 Last Admin: 05/22/25 23:03 Dose: 25 mg Documented By: KAMILLE Acetaminophen (Ofirmev) 1,000 mg in 100 mls @ 400 mls/hr IV NOW STA Stop: 05/21/25 18:18 Last Infusion: 05/21/25 19:40 Dose: Infused Documented By: Admin: 05/21/25 19:23 Dose: 400 mls/hr Documented By: ODETTE Sodium Chloride (Nss) 1,000 mls @ 999 mls/hr IV .Q1H1M ONE Stop: 05/21/25 20:19 Last Infusion: 05/21/25 22:27 Dose: Infused Documented By: Admin: 05/21/25 19:36 Dose: 999 mls/hr Documented By: ODETTE Piperacillin Sod/Tazobactam Sod (Zosyn) 4.5 gm in 100 mls @ 200 mls/hr IV NOW ONE; Protocol Stop: 05/21/25 21:30 Last Infusion: 05/21/25 22:26 Dose: Infused Documented By: Admin: 05/21/25 21:44 Dose: 200 mls/hr Documented By: ODETTE Thiamine HCl 100 mg/ Syringe 10 mls @ 2 mls/min IV QAM [facility] Stop: 05/22/25 09:04 Last Admin: 05/22/25 08:25 Dose: 2 mls/min Documented By: sage Vancomycin HCl 2,000 mg/ (Sodium Chloride) 540 mls @ 200 mls/hr IV NOW STA Stop: 05/22/25 03:00 Last Infusion: 05/22/25 04:40 Dose: Infused Documented By: Admin: 05/22/25 01:01 Dose: 200 mls/hr Documented By: ODETTE Vancomycin HCl 1,250 mg/ (Sodium Chloride) 275 mls @ 200 mls/hr IV Q8H [facility]NA Stop: 05/24/25 07:59 Last Infusion: 05/23/25 10:08 Dose: Infused Documented By: sage Admin: 05/23/25 08:45 Dose: 200 mls/hr Documented By: sage Infusion: 05/23/25 00:35 Dose: Infused Documented By: Admin: 05/22/25 23:02 Dose: 200 mls/hr Documented By: Infusion: 05/22/25 17:44 Dose: Infused Documented By: sage Admin: 05/22/25 16:08 Dose: 200 mls/hr Documented By: sage Infusion: 05/22/25 10:01 Dose: Infused Documented By: sage Admin: 05/22/25 08:13 Dose: 200 mls/hr Documented By: sage Lactated Ringer's (Lr) 1,000 mls @ 100 mls/hr IV .Q10H [facility] Stop: 05/23/25 00:00 Last Infusion: 05/23/25 04:31 Dose: Infused Documented By: Admin: 05/22/25 18:26 Dose: 100 mls/hr Documented By: sage Infusion: 05/22/25 18:26 Dose: Infused Documented By: sage Admin: 05/22/25 08:15 Dose: 100 mls/hr Documented By: sage Ioversol (Optiray 320 100ml) 90 ml IV ONCE ONE Stop: 05/21/25 19:53 Last Admin: 05/21/25 19:53 Dose: 90 ml Documented By: MARGARET Ioversol (Optiray 320 100ml) 94 ml IV ONCE ONE Stop: 05/23/25 16:08 Last Admin: 05/23/25 16:07 Dose: 94 ml Documented By: MARGARET Imaging Data Radiologist's Impression: Chest X-Ray 05/21/25 15:52 Chest radiograph, one view History: Chest pain Comparison: 06/28/2023 Findings: Single AP view of the chest performed. No focal consolidation or pleural effusion. No pneumothorax. Right upper extremity PICC tip is at the lower SVC. Small focus of atelectasis at the lingula, similar to prior exams. The cardiomediastinal silhouette is within normal limits. Normal pulmonary vascularity. No evidence for lymphadenopathy. No visualized bony or soft tissue abnormality. Impression: No acute process Electronically signed by Casper Martins 05-21-2025 5:[address] 05/21/25 18:04 Clinical History: Headache. Technique: Axial computed tomography images were obtained of the brain from the vertex to the skull base without intravenous contrast. Comparison is made to the prior CT dated 06/22/2022 Findings: There is no sign of intracranial hemorrhage. There is normal damian-white matter differentiation with no sign of acute or old infarction. No midline shift or other form of herniation is identified. There is no hydrocephalus. No obvious mass lesion is seen on this noncontrast examination. The visualized portions of the orbits and paranasal sinuses appear unremarkable. The mastoid air cells appear clear Impression: Unremarkable noncontrast CT of the brain Electronically signed by Nikolay Perez 05-21-2025 7:15 PM Abdomen/Pelvis CT 05/21/25 19:29 COMPARISON:06/28/2023 FINDINGS: CT ABDOMEN: LUNG BASES: New 1.3 cm nodular density nodule in the left lower lobe. New 0.6 cm nodular density in the right lower lobe. LIVER:Prominent liver. Hepatic steatosis. No discrete hepatic masses. SPLEEN:Mildly prominent spleen. No splenic masses. GALLBALDDER:Calcified gallstones. KIDNEYS:Tiny nonobstructing left intrarenal calculus. No hydronephrosis. PANCREAS: unremarkable. ADRENAL GLANDS: Unremarkable. PROXIMAL BOWEL: Under distended stomach. There is a stent in the loop of small bowel noted in the right upper quadrant, similar to prior. Left lower quadrant ileostomy is again noted. There is left parastomal hernia anterior to the iliac crest region. VASCULAR: No evidence of abdominal aortic aneurysm. BONES: Intact. OTHER: Prominent lymph node in the portacaval region measures 2.8 x 1.9 cm. Multiple additional scattered mesenteric lymph nodes. Index lymph node in the right mid abdomen measures 1.7 x 0.9 cm. 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 CT PELVIS: URINARY BLADDER: Unremarkable. PELVIC ORGANS: Unremarkable. DISTAL BOWEL: Stable postsurgical changes. BONES: intact. OTHER: No significant lymphadenopathy. No free fluid. 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 Left lower quadrant ileostomy with left parastomal hernia without evidence of obstruction. Stable Endoscopy stent located in the right upper quadrant loop of bowel. Cholelithiasis. New nodular densities at the lung bases, larger on the left than the right. They may represent areas of focal airspace disease or developing pulmonary nodules. No drainable abscesses appreciated. Electronically signed by William Leonard 05-21-2025 8:42 PM Discharge Plan Visit Data Chief Complaint: Flu Like Symptoms Stated Complaint: ILLNESS PAST WEEK, HEADACHE, FEVER, CHILLS, VOMIT ED Provider: Humberto Brady ED Midlevel Provider: Elizabeth Hdz Discharge Problem: Infection, Acute kidney injury Patient Disposition: Admitted As Inpatient Condition: Good Discharge Instructions Interventions: ED Discharge Assessment Last Done: 05/22/25 01:30 Addendum May 23, 2025 21:46 I was consulted by the Advanced Practice Provider and was substantively involved in the patient's visit.This includes aspects of the HPI, MDM, diagnostic interpretations, and disposition/plan. I discussed the case with the EUGENIE and agree with the findings and plan as documented in EUGENIE Wilder's note.
--- NOTE | 2025-05-21 19:15 | CT Scan Report ---
Clinical History: Headache. Technique: Axial computed tomography images were obtained of the brain from the vertex to the skull base without intravenous contrast. Comparison is made to the prior CT dated 06/22/2022 Findings: There is no sign of intracranial hemorrhage. There is normal damian-white matter differentiation with no sign of acute or old infarction. No midline shift or other form of herniation is identified. There is no hydrocephalus. No obvious mass lesion is seen on this noncontrast examination. The visualized portions of the orbits and paranasal sinuses appear unremarkable. The mastoid air cells appear clear Impression: Unremarkable noncontrast CT of the brain Electronically signed by Nikolay Perez 05-21-2025 7:15 PM
[2025-05-21] MEDS: ACETAMINOPHEN 1,000 MG/100 ML VIAL IV STA (19:23)
[2025-05-21] MEDS: SODIUM CHLORIDE 0.9% 1,000 ML IV ONE (19:36)
[2025-05-21] MEDS: OPTIRAY 320 100ml IV ONE (19:53)
[2025-05-21 20:05] LABS: Chlamydia pneumoniae PCR Not Detected (NotDetected); Coronavirus 229E PCR Not Detected (NotDetected); Coronavirus CoV-2 (COVID19)PCR Not Detected (NotDetected); Coronavirus HKU1 PCR Not Detected (NotDetected); Coronavirus NL63 PCR Not Detected (NotDetected); Coronavirus OC43PCR Not Detected (NotDetected); Human Metapneumovirus PCR Not Detected (NotDetected); Parainfluenza Virus 1 PCR Not Detected (NotDetected); Parainfluenza Virus 2 PCR Not Detected (NotDetected); Parainfluenza Virus 3 PCR Not Detected (NotDetected); Parainfluenza Virus 4 PCR Not Detected (NotDetected); Respiratory Syncytial VirusPCR Not Detected (NotDetected); Rhinovirus/Enterovirus PCR Not Detected (NotDetected)
--- NOTE | 2025-05-21 20:42 | CT Scan Report ---
COMPARISON:06/28/2023 FINDINGS: CT ABDOMEN: LUNG BASES: New 1.3 cm nodular density nodule in the left lower lobe. New 0.6 cm nodular density in the right lower lobe. LIVER:Prominent liver. Hepatic steatosis. No discrete hepatic masses. SPLEEN:Mildly prominent spleen. No splenic masses. GALLBALDDER:Calcified gallstones. KIDNEYS:Tiny nonobstructing left intrarenal calculus. No hydronephrosis. PANCREAS: unremarkable. ADRENAL GLANDS: Unremarkable. PROXIMAL BOWEL: Under distended stomach. There is a stent in the loop of small bowel noted in the right upper quadrant, similar to prior. Left lower quadrant ileostomy is again noted. There is left parastomal hernia anterior to the iliac crest region. VASCULAR: No evidence of abdominal aortic aneurysm. BONES: Intact. OTHER: Prominent lymph node in the portacaval region measures 2.8 x 1.9 cm. Multiple additional scattered mesenteric lymph nodes. Index lymph node in the right mid abdomen measures 1.7 x 0.9 cm. 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 CT PELVIS: URINARY BLADDER: Unremarkable. PELVIC ORGANS: Unremarkable. DISTAL BOWEL: Stable postsurgical changes. BONES: intact. OTHER: No significant lymphadenopathy. No free fluid. 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 Left lower quadrant ileostomy with left parastomal hernia without evidence of obstruction. Stable Endoscopy stent located in the right upper quadrant loop of bowel. Cholelithiasis. New nodular densities at the lung bases, larger on the left than the right. They may represent areas of focal airspace disease or developing pulmonary nodules. No drainable abscesses appreciated. Electronically signed by William Leonard 05-21-2025 8:42 PM
[2025-05-21] MEDS: PIPERACILLIN/TAZOBACTAM 4.5 GM/100 ML BAG IV ONE (21:44)
[2025-05-21 22:27] LABS: Appearance Urine Clear (Clear); Bacteria Urine Automated None Seen (None Seen); Cast Urine Automated 0-2 /lpf (0-2); Epithelial Cell Urine Auto 0-2 /hpf (0-2); Glucose Urine UA Negative (Negative); RBC Urine Automated 0-2 /hpf (0-2); WBC Urine Automated 0-5 /hpf (0-5)
--- NOTE | 2025-05-21 23:20 | History & Physical Report ---
Date of Service May 21, 2025 Assessment & Plan (1) Sepsis: Plan: Assessment and plan below following discussion of case with ED provider and reviewing patient history/pertinent normal/abnormal diagnostic test results. Sepsis SIRS plus elevated procalcitonin Unknown source for now ? 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 duodenal perforation status post surgery (2023) esophagitis/esophageal stenosis ongoing TPN nutrition CIDP as per records Acute on chronic anemia, patient without overt bleeding complaints alcohol abuse as per records narcotic addiction on Suboxone Chronic hyponatremia Hyperglycemia ro DM ongoing tobacco abuse Admit to med/tele CS, vancomycin, cefepime for now Further management contingent on workup results Anemia workup IMER S at risk protocol, DT precautions Check hemoglobin A1c Nicotine patch DVT prophylaxis per Lovenox subcu Full code Text document was generated using [email or web address] recognition software. It may contain grammatical or spelling errors. Kindly contact undersigned for clarification of any documentation item in question. History of Present Illness Chief Complaint: Headache, fatigue Primary Care Provider: Jazz Han MD History obtained from patient and records. 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 Last confinement June 2023 for ARF and hypotension. Few days history of achy headache and fatigue symptoms. Some nausea, no vomiting. Denies neck pain. No cough, no abdominal pain, no dysuria, no diarrhea symptoms or overt bleeding. Zosyn administered at the ER. Patient comfortable after initial intervention at the ER. Medical History as above Surgical History : Abdominal abscess drainage, ex lap, gastrostomy/suturing of bleeding ulcer, vascular procedures, knee surgeries, total colectomy, hernia repair Family History : DM, stroke, colitis Personal/Social history : 1 pack daily, alcohol abuse as per records, disabled Allergies Allergy/AdvReac Type Severity Reaction Status Date / Time Fish Containing Products Allergy Unknown Verified 05/21/25 21:13 fish derived Allergy Unknown Verified 05/21/25 21:13 fish oil Allergy Unknown Verified 05/21/25 21:13 shellfish derived Allergy Unknown Verified 05/21/25 21:13 adalimumab [From Humira] AdvReac Severe CONVULSIONS Verified 05/21/25 21:13 infliximab [From Remicade] AdvReac Severe CONVULSIONS Verified 05/21/25 21:13 methotrexate AdvReac Severe CONVULSIONS Verified 05/21/25 21:13 SEAFOOD AdvReac Intermediate BLOATING/GAS Uncoded 05/21/25 21:13 DISCOMFORT Home Medications Medication Instructions Recorded Confirmed Type buprenorphine 8 mg-naloxone 2 mg 2 tab sublingual DAILY 06/22/22 05/21/25 History sublingual tablet tadalafil 5 mg tablet 5 mg PO DAILY PRN Erectile 08/02/22 05/21/25 History Dysfunction gabapentin 300 mg capsule 300 mg PO TID 04/07/23 05/21/25 History lansoprazole 30 mg delayed 30 mg PO AMHS 05/21/25 05/21/25 History release,disintegrating tablet risankizumab-rzaa 360 mg/2.4 mL 360 mg subcut .EVERY 8 WEEKS 05/21/25 05/21/25 History (150 mg/mL) subcut wearable injector (Skyrizi) Past Med/Surg History Problem List (Updated 08/03/23 @ 00:12 by Background Daem[place]) Hypotension (arterial) Hypovolemia with active loss of fluid (Acute) Acute dehydration (Acute) Enterocutaneous fistula (Acute) Crohn's disease (Acute) Anemia ATN (acute tubular necrosis) Sepsis associated hypotension Hyperkalemia Acute hyponatremia Dehydration Acute kidney failure (Acute) Enterocutaneous fistula Alcohol withdrawal Abdominal pain Nausea & vomiting Narcotic abuse Tobacco use Alcohol abuse Testicle swelling History of hernia surgery History of colon surgery Crohn disease (Chronic) Medical History (Updated 08/03/23 @ 00:12 by Background Dajazmin) Open abdominal wall wound Acute anxiety Depression Arthritis Surgical History (Updated 08/03/23 @ 00:12 by Background [place]) History of wisdom tooth extraction History of knee surgery Bilateral knee scopes Family History Other Diabetes Social History Smoking Status: Current every day smoker Tobacco Type: Cigarettes Cigarettes Per Day: 1 pack per day; Second Hand Exposure: Yes; Do You Dip or Chew Tobacco: No; Hx Alcohol Use: Yes Alcohol type: beer Hx Substance Use: Yes Prescribed Medications: Former Misuse of Rx Meds Non- Prescribed Medications: Marijuana Last Used Substance: Hours (ago) Last Used Substance Other:: 06/28/2023 Substance Use Type Other:: suboxone Preferred Language: Maori Communication Ability: Effective Healthcare Recruiter Required: No Beliefs That Will Affect Care: None Current Living Situation: Significant Other Other Information That Helps Us Care for You: No Feels Safe at Home: Yes Safety Concerns: Feels Safe At This Time Assistive Devices: Wheelchair Review of Systems Review of Systems: As per HPI, all other systems reviewed and negative Physical Exam Physical Exam: GENERAL: Comfortable, no respiratory distress SKIN: Pallor, warm HEENT: Pale palpebral conjunctivae, no ptosis, dry buccal mucosa NECK : Supple, no tenderness CHEST : CTA, no tenderness HEART : RRR, no obvious murmurs ABDOMEN: Some distention, ostomy bag in place, nontender EXTREMITIES : No LE swelling/tenderness, palpable pulses, no other conspicuous deformities noted NEUROLOGIC : Coherent, no facial asymmetry, no other gross focality Results & Data Results & Data Vital Signs (Past 12 Hours) Vital Signs Temp Pulse Pulse Resp BP BP Pulse Ox 05/21/25 22:00 75 16 109/58 L 97 05/21/25 20:50 78 05/21/25 20:34 82 18 95 05/21/25 20:00 82 18 107/58 L 94 05/21/25 18:47 93 H 20 114/69 95 05/21/25 15:47 36.8 C 116 H 20 124/79 96 O2 Del Method 05/21/25 22:00 Room Air 05/21/25 20:50 05/21/25 20:34 Room Air 05/21/25 20:00 Room Air 05/21/25 18:47 Room Air 05/21/25 15:47 Room Air Laboratory Results Laboratory Results WBC 14.52 K/ul (4.8-10.8) H 05/21/25 16:08 RBC 4.29 M/uL (4.70-6.10) L 05/21/25 16:08 Hgb 11.6 g/dl (14.0-18.0) L 05/21/25 16:08 Hct 35.3 % (42.0-52.0) L 05/21/25 16:08 MCV 82.3 fL (80.0-100.0) 05/21/25 16:08 MCH 27.0 pg (25.0-34.0) 05/21/25 16:08 MCHC 32.9 g/dL (32.0-36.0) 05/21/25 16:08 RDW Std Deviation 47.4 fL (36.4-46.3) H 05/21/25 16:08 RDW Coeff of Mindi 15.8 % (11.5-14.5) H 05/21/25 16:08 Plt Count 247 K/uL (130-400) 05/21/25 16:08 MPV 12.3 fL (9.4-12.4) 05/21/25 16:08 Immature Gran % (Auto) 0.7 % 05/21/25 16:08 Neut % (Auto) 52.1 % 05/21/25 16:08 Lymph % (Auto) 35.5 % 05/21/25 16:08 Wilbarger % (Auto) 10.4 % 05/21/25 16:08 Eos % (Auto) 1.0 % 05/21/25 16:08 Baso % (Auto) 0.3 % 05/21/25 16:08 Neut # (Auto) 7.56 K/uL (1.40-6.50) H 05/21/25 16:08 Lymph # (Auto) 5.15 K/uL (1.20-3.40) H 05/21/25 16:08 Wilbarger # (Auto) 1.51 K/uL (0.11-0.59) H 05/21/25 16:08 Eos # (Auto) 0.15 K/uL (0.00-0.50) 05/21/25 16:08 Baso # (Auto) 0.05 K/uL (0.00-0.20) 05/21/25 16:08 Immature Gran # (Auto) 0.10 K/uL (0.01-0.20) 05/21/25 16:08 Sodium 134 mmol/L (136-145) L 05/21/25 16:08 Potassium 3.9 mmol/L (3.5-5.1) 05/21/25 16:08 Chloride 100 mmol/L (98-107) 05/21/25 16:08 Carbon Dioxide 24 mmol/L (21-32) 05/21/25 16:08 Anion Gap 10 (3-11) 05/21/25 16:08 BUN 14 mg/dl (6-23) 05/21/25 16:08 Creatinine 0.56 mg/dl (0.6-1.4) L 05/21/25 16:08 Est Cr Clr Drug Dosing Not Reportable 05/21/25 16:08 eGFR 131.82 05/21/25 16:08 BUN/Creatinine Ratio 25.0 (10-20) H 05/21/25 16:08 Glucose 123 mg/dl (70-99(Fasting)) H 05/21/25 16:08 Calcium 8.7 mg/dl (8.6-10.3) 05/21/25 16:08 Magnesium 1.8 mg/dl (1.7-2.4) 05/21/25 16:08 Total Bilirubin 2.9 mg/dl (0.2-1.0) H 05/21/25 16:08 Direct Bilirubin 1.9 mg/dl (0-0.2) H 05/21/25 16:08 AST 37 U/L (13-39) 05/21/25 16:08 ALT 46 U/L (7-52) 05/21/25 16:08 Alkaline Phosphatase 327 U/L (34-104) H 05/21/25 16:08 Total Protein 7.9 gm/dl (6.0-8.3) 05/21/25 16:08 Albumin 3.2 gm/dl (3.4-5.0) L 05/21/25 16:08 Globulin 4.7 gm/dl (2.5-4.0) H 05/21/25 16:08 Albumin/Globulin Ratio 0.7 (0.9-2) L 05/21/25 16:08 Procalcitonin 1.11 ng/ml (0-0.5) H 05/21/25 16:08 Urine Color Dark Yellow 05/21/25 22:10 Urine Appearance Clear (Clear) 05/21/25 22:10 Urine pH 6.0 (4.5-7.5) 05/21/25 22:10 Ur Specific Bradford > 1.045 (1.000-1.030) H 05/21/25 22:10 Urine Protein Trace (Negative) H 05/21/25 22:10 Urine Glucose (UA) Negative (Negative) 05/21/25 22:10 Urine Ketones Negative (Negative) 05/21/25 22:10 Urine Blood Negative (Negative) 05/21/25 22:10 Urine Nitrite Negative (Negative) 05/21/25 22:10 Urine Bilirubin 2+ (Negative) H 05/21/25 22:10 Urine Urobilinogen Negative (Negative) 05/21/25 22:10 Ur Leukocyte Esterase Trace (Negative) H 05/21/25 22:10 Urine WBC (Auto) 0-5 /hpf (0-5) 05/21/25 22:10 Urine RBC (Auto) 0-2 /hpf (0-2) 05/21/25 22:10 U Hyaline Cast (Auto) 0-2 /lpf (0-2) 05/21/25 22:10 U Epithel Cells (Auto) 0-2 /hpf (0-2) 05/21/25 22:10 Urine Bacteria (Auto) None Seen (None Seen) 05/21/25 22:10 Urine Comment 05/21/25 22:10 Adenovirus (PCR) Not Detected (NotDetected) 05/21/25 18:43 B. pertussis DNA (PCR) Not Detected (NotDetected) 05/21/25 18:43 B.parapertussis DNA PCR Not Detected (NotDetected) 05/21/25 18:43 C. pneumoniae DNA (PCR) Not Detected (NotDetected) 05/21/25 18:43 Coronavirus OC43 (PCR) Not Detected (NotDetected) 05/21/25 18:43 Coronavirus HKU1 (PCR) Not Detected (NotDetected) 05/21/25 18:43 Coronavirus 229E (PCR) Not Detected (NotDetected) 05/21/25 18:43 SARS-CoV-2 (PCR) Not Detected (NotDetected) 05/21/25 18:43 Coronavirus NL63 (PCR) Not Detected (NotDetected) 05/21/25 18:43 Human Metapneumovir PCR Not Detected (NotDetected) 05/21/25 18:43 Influenza Type A (PCR) Not Detected (NotDetected) 05/21/25 18:43 Influenza Type B (PCR) Not Detected (NotDetected) 05/21/25 18:43 M. pneumoniae (PCR) Not Detected (NotDetected) 05/21/25 18:43 Parainfluenza 1 (PCR) Not Detected (NotDetected) 05/21/25 18:43 Parainfluenza 2 (PCR) Not Detected (NotDetected) 05/21/25 18:43 Parainfluenza 3 (PCR) Not Detected (NotDetected) 05/21/25 18:43 Parainfluenza 4 (PCR) Not Detected (NotDetected) 05/21/25 18:43 RSV (PCR) Not Detected (NotDetected) 05/21/25 18:43 Entero/Rhino (PCR) Not Detected (NotDetected) 05/21/25 18:43 Impressions Chest X-Ray 05/21/25 15:52 Chest radiograph, one view History: Chest pain Comparison: 06/28/2023 Findings: Single AP view of the chest performed. No focal consolidation or pleural effusion. No pneumothorax. Right upper extremity PICC tip is at the lower SVC. Small focus of atelectasis at the lingula, similar to prior exams. The cardiomediastinal silhouette is within normal limits. Normal pulmonary vascularity. No evidence for lymphadenopathy. No visualized bony or soft tissue abnormality. Impression: No acute process Electronically signed by Casper Martins 05-21-2025 5:[address] 05/21/25 18:04 Clinical History: Headache. Technique: Axial computed tomography images were obtained of the brain from the vertex to the skull base without intravenous contrast. Comparison is made to the prior CT dated 06/22/2022 Findings: There is no sign of intracranial hemorrhage. There is normal damian-white matter differentiation with no sign of acute or old infarction. No midline shift or other form of herniation is identified. There is no hydrocephalus. No obvious mass lesion is seen on this noncontrast examination. The visualized portions of the orbits and paranasal sinuses appear unremarkable. The mastoid air cells appear clear Impression: Unremarkable noncontrast CT of the brain Electronically signed by Nikolay Perez 05-21-2025 7:15 PM Abdomen/Pelvis CT 05/21/25 19:29 COMPARISON:06/28/2023 FINDINGS: CT ABDOMEN: LUNG BASES: New 1.3 cm nodular density nodule in the left lower lobe. New 0.6 cm nodular density in the right lower lobe. LIVER:Prominent liver. Hepatic steatosis. No discrete hepatic masses. SPLEEN:Mildly prominent spleen. No splenic masses. GALLBALDDER:Calcified gallstones. KIDNEYS:Tiny nonobstructing left intrarenal calculus. No hydronephrosis. PANCREAS: unremarkable. ADRENAL GLANDS: Unremarkable. PROXIMAL BOWEL: Under distended stomach. There is a stent in the loop of small bowel noted in the right upper quadrant, similar to prior. Left lower quadrant ileostomy is again noted. There is left parastomal hernia anterior to the iliac crest region. VASCULAR: No evidence of abdominal aortic aneurysm. BONES: Intact. OTHER: Prominent lymph node in the portacaval region measures 2.8 x 1.9 cm. Multiple additional scattered mesenteric lymph nodes. Index lymph node in the right mid abdomen measures 1.7 x 0.9 cm. 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 CT PELVIS: URINARY BLADDER: Unremarkable. PELVIC ORGANS: Unremarkable. DISTAL BOWEL: Stable postsurgical changes. BONES: intact. OTHER: No significant lymphadenopathy. No free fluid. 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 Left lower quadrant ileostomy with left parastomal hernia without evidence of obstruction. Stable Endoscopy stent located in the right upper quadrant loop of bowel. Cholelithiasis. New nodular densities at the lung bases, larger on the left than the right. They may represent areas of focal airspace disease or developing pulmonary nodules. No drainable abscesses appreciated. Electronically signed by William Leonard 05-21-2025 8:42 PM Diagnostic Findings EKG as per my interpretation :Rate 90, NSR, normal axis, T wave flattening septal leads (1) Sepsis Acute renal failure type: with acute tubular necrosis Sepsis acute organ dysfunction status: with acute organ dysfunction Sepsis type: sepsis due to unspecified organism Severe sepsis acute organ dysfunction type: acute renal failure Severe sepsis shock status: without septic shock Qualified Code(s): A41.9 - Sepsis, unspecified organism; R65.20 - Severe sepsis without septic shock; N17.0 - Acute kidney failure with tubular necrosis
[2025-05-21] MEDS ORDERED: VANCOMYCIN CONSULT ACTIVE PRN (23:53)
[2025-05-21] MEDS ORDERED: ACETAMINOPHEN 325 MG TAB PO PRN (23:59)
[2025-05-22] MEDS ORDERED: PROMETHAZINE 6.25 MG/50.25 ML BAG IV PRN
[2025-05-22] MEDS: VANCOMYCIN HCL 2,000 MG in SODIUM CHLORIDE 0.9% 500 ML IV STA (01:01)
[2025-05-22] MEDS: NICOTINE 21 MG/24 HR TDSY TD SCH (01:01)
[2025-05-22] MEDS: diphenhydrAMINE Capsule 25 MG CAP PO PRN (01:56)
[2025-05-22] MEDS: GABAPENTIN 300 MG CAP PO SCH (02:07)
[2025-05-22] MEDS: LANSOPRAZOLE 30 MG SOLTAB PO SCH (03:29)
[2025-05-22] MEDS ORDERED: TPN/PPN CONSULT PHARMACY PRN (05:44)
[2025-05-22] MEDS: CEFEPIME 2000MG 2,000 MG/20 ML SYR IV SCH (06:16)
[2025-05-22] MEDS: HEPARIN 100 UNIT/ML 5ML FLUSH FLUSH PRN (06:24)
[2025-05-22 06:47] LABS: Hematocrit (blood only) 29.2 % (42.0-52.0); Hemoglobin 10.2 g/dl (14.0-18.0); Immature Granulocytes # (auto) 0.08 K/uL (0.01-0.20); Immature Granulocytes % (auto) 0.7 %; Mean Corpuscular Hemoglobin 28.4 pg (25.0-34.0); Mean Corpuscular Volume 81.3 fL (80.0-100.0); Platelet Count 235 K/uL (130-400); RDW Standard Deviation 45.8 fL (36.4-46.3); Red Blood Count 3.59 M/uL (4.70-6.10); Reticulocytes # 0.040 10^6/uL (0.020-0.100); White Blood Count 10.81 K/ul (4.8-10.8)
[2025-05-22 07:26] LABS: Alanine Aminotransferase 42.0 U/L (7-52); Albumin Globulin Ratio 0.8 (0.9-2); Albumin Level 3.0 gm/dl (3.4-5.0); Alkaline Phosphatase 308.0 U/L (34-104); Anion Gap 7.0 (3-11); Bilirubin,Total 3.4 mg/dl (0.2-1.0); Blood Urea Nitrogen 10.0 mg/dl (6-23); Calcium 8.4 mg/dl (8.6-10.3); Carbon Dioxide 26.0 mmol/L (21-32); Chloride 102.0 mmol/L (98-107); Creatinine Clr Calc Pharmacy 188.2 ml/min; Globulin 3.6 gm/dl (2.5-4.0); Glucose 91.0 mg/dl (70-99(Fasting)); Iron 23.0 mcg/dl (35-175); Magnesium 1.9 mg/dl (1.7-2.4); Potassium 3.9 mmol/L (3.5-5.1); Sodium 135.0 mmol/L (136-145); Total Protein 6.6 gm/dl (6.0-8.3); Transferrin 240.0 mg/dl (200-360); Triglycerides 354.0 mg/dl (0-150)
[2025-05-22 07:31] LABS: Folate (Folic Acid),Ser orPlas 18.11 ng/ml (>5.38); Hemoglobin A1C 6.4 % (4.5-5.6)
[2025-05-22 07:32] LABS: Vitamin B12 1061.0 pg/ml (180-914)
[2025-05-22 07:42] LABS: A calco-baum cmplx NotReported Not Detected (NotDetected); Bact fragilis Not Reported Not Detected (NotDetected); Blood Culture Id Panel See PCR Comment (NotDetected); C auris Not Reported Not Detected (NotDetected); CTX-M Resistant Gene Not Detected (NotDetected); Calbicans Not Reported Not Detected (NotDetected); Candida glabrata Not Reported Not Detected (NotDetected); Candida krusei Not Reported Not Detected (NotDetected); Cneoformans/gatti Not Reported Not Detected (NotDetected); Cparapsilosis Not Reported Not Detected (NotDetected); Ctropicalis Not Reported Not Detected (NotDetected); E cloacae compx Not Reported Not Detected (NotDetected); Efaecalis Not Reported Not Detected (NotDetected); Efaecium Not Reported Not Detected (NotDetected); Enterobacterales Not Reported DETECTED (NotDetected); Escherichia coli Not Reported Not Detected (NotDetected); H influenzae Not Reported Not Detected (NotDetected); IMP Resistant Gene Not Detected (NotDetected); K aerogenes Not Reported Not Detected (NotDetected); KPC Resistant Gene Not Detected (NotDetected); Koxytoca Not Reported Not Detected (NotDetected); Kpneumoniae grp Not Reported Not Detected (NotDetected); Lmonocyt Not Reported Not Detected (NotDetected); N meningitidis Not Reported Not Detected (NotDetected); NDM Resistant Gene Not Detected (NotDetected); OXA 48 Like Resistant Gene Not Detected (NotDetected); P aeruginosa Not Reported Not Detected (NotDetected); Proteus spp Not Reported Not Detected (NotDetected); Salmonella spp Not Reported Not Detected (NotDetected); Staph lugdunensis Not Reported Not Detected (NotDetected); Staph spp. Not Reported Not Detected (NotDetected); Staphaureus Not Reported Not Detected (NotDetected); Staphepi Not Reported Not Detected (NotDetected); Stenmaltophilia Not Reported Not Detected (NotDetected); Strep agal(GrpB) Not Reported Not Detected (NotDetected); Strep pneum Not Reported Not Detected (NotDetected); Strep pyog (GrpA) Not Reported Not Detected (NotDetected); Strep spp Not Reported Not Detected (NotDetected); VIM Resistant Gene Not Detected (NotDetected)
[2025-05-22 07:45] LABS: Ferritin 75.4 ng/ml (8-388)
[2025-05-22] MEDS: VANCOMYCIN HCL 1,250 MG in SODIUM CHLORIDE 0.9% 250 ML IV SCH (08:13)
[2025-05-22] MEDS: LACTATED RINGER'S 1,000 ML IV SCH (08:15)
[2025-05-22] MEDS: MULTIVITAMIN TAB PO SCH (08:24)
[2025-05-22] MEDS: BUPRENORPHINE/NALOXONE 8/2 MG TAB SL SCH (08:24)
[2025-05-22] MEDS: THIAMINE HCL 100 MG in SYRINGE 9 ML IV SCH (08:25)
[2025-05-22] MEDS: ENOXAPARIN INJ 40 MG/0.4 ML SYR SQ SCH (08:25)
[2025-05-22] MEDS: FOLIC ACID 1 MG TAB PO SCH (08:25)
[2025-05-22 08:49] LABS: Enterobacterales DETECTED (NotDetected)
[2025-05-22] MEDS: AZITHROMYCIN 250 MG TAB PO SCH (09:39)
--- NOTE | 2025-05-22 10:26 | Pharmacy Report ---
Pharmacy PK ABX Note - Date of Service May 22, 2025 - Assessment and Plan Assessment 34 year old M receiving vancomycin for treatment of gram negative bacteremia. Pertinent microbiologic data includes: MRSA Nasal Swab pending, blood culture 05/21 growing gram negative bacilli (4/4)-enterobacterales noted on [employer] ID with no resistance genes. Receives chronic TPN at home, discussed with Dr. Fabian, plan to remove midline today, ok to hold TPN for today. Day # 1 of antimicrobial therapy. Plan Vancomycin * Loading dose: 2000 mg IV x 1 * Maintenance dose: 1250 mg IV every 8 hours * Regimen is predicted to achieve target AUC/GUNNAR of 400-600 mg/L.hr * Trough level ordered for: 05/23/25 @ 0730 Pharmacy will continue to follow and will adjust dose/frequency as necessary. Thank you. Pharmacy has transitioned to AUC monitoring for vancomycin. AUC/GUNNAR is the preferred PK/PD target and is associated with decreased risk of nephrotoxicity compared to traditional trough targets.
--- NOTE | 2025-05-22 12:10 | Hospitalist Progress Note ---
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 #Sepsis #CLABSI #Gram Negative Bacteremia #R/o CAP vs. other chronic lung infection -potential sources include developing lung infection vs. line -given patient has had line for 2 years likely line infection -patient would like to try salvage therapy if possible -hemodynamically stable, feeling much better overall Plan: -check MRSA swab, sputum cultures, legionella if able -start 100cc/hr LR maintenance fluids given bacteremia -continue vancomycin/cefepime, start azithromycin pending culture results -will attempt salvage therapy pending speciation, patient has home health at home -if unable will remove and replace PICC tomorrow -hold TPN for now given infection, elevated LFTs #Alcohol Use -AWSS trending and medication prn #Opioid Use Disorder, in remission -continue suboxone hx Crohn's disease status post surgery 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 This time includes: history taking, physical examination, medical decision making, counseling, ECG interpretation, imaging interpretation, lab interpretation, orders, and education, excluding time spent in the performance of separately billed services. Admission and Anticipated Discharge Date Admission Date: May 21, 2025 Subjective Patient seen and examined at bedside. Patient doing well today. Discussed the high liklihood of a line infection given a lack of clear and obvious other sources, other source being a possible developing CAP (however no cough). Patient would like to try and salvage PICC line. Discussed need for speciation before determining ability to salvage. If needed patient open to another line placement. Per patient has had PICC line for 2 years and had no issues. Review of Systems Review of Systems: CONSTITUTIONAL: fevers, chills EYES: Patient denies any visual symptoms. EARS, NOSE, AND THROAT: No difficulties with hearing. No symptoms of rhinitis or sore throat. CARDIOVASCULAR: Patient denies chest pains, palpitations, orthopnea and paroxysmal nocturnal dyspnea. RESPIRATORY: No dyspnea on exertion, no wheezing or cough. GI: No nausea, vomiting, diarrhea, constipation, abdominal pain, hematochezia or melena. : No urinary hesitancy or dribbling. No nocturia or urinary frequency. No abnormal urethral discharge. MUSCULOSKELETAL: No myalgias or arthralgias. NEUROLOGIC: No chronic headaches, no seizures. Patient denies numbness, tingling or weakness. PSYCHIATRIC: Patient denies problems with mood disturbance. No problems with anxiety. ENDOCRINE: No excessive urination or excessive thirst. DERMATOLOGIC: Patient denies any rashes or skin changes. Physical Exam Physical Exam: Gen: A&O 3 NAD HEENT: NCAT, EOMI, not icteric. External ears normal. No rhinorrhea. Moist mucous membranes. Neck: Supple, full range of motion, no observable masses, No meningeal sign. Lungs: No Respiratory distress. CV: RRR, no edema. Abdomen: Soft, nondistended, No rebound tenderness. MSK: No joint swelling, no redness. No evidence of line or surrounding tissue infection Skin: No rashes, petechiae, lesions. Normal color per patient. Neuro: Normal Gait, Grossly intact. Psych: Appropriate for situation. Results & Data Results & Data Vital Signs (Past 12 Hours) Vital Signs Temp Pulse Pulse Resp BP BP Pulse Ox 05/22/25 11:08 37.1 C 92 H 14 115/64 96 05/22/25 08:04 36.6 C 81 16 103/60 92 05/22/25 07:55 37.6 C H 84 12 106/62 93 05/22/25 05:13 76 05/22/25 01:34 86 05/22/25 01:30 61 16 123/77 97 05/22/25 01:15 36.6 C 82 18 116/71 95 05/22/25 00:50 74 O2 Del Method 05/22/25 11:08 Room Air 05/22/25 08:04 Room Air 05/22/25 07:55 Room Air 05/22/25 05:13 05/22/25 01:34 05/22/25 01:30 Room Air 05/22/25 01:15 Room Air 05/22/25 00:50 Laboratory Results -personally reviewed, WBC downtrending Medications Administered Azithromycin (Azithromycin 250 Mg Tab) 500 mg PO QAM [facility] Stop: 05/27/25 08:59 Last Admin: 05/22/25 09:39 Dose: 500 mg Documented By: sage Buprenorphine/Naloxone (Buprenorphine/Naloxone 8/2 Mg Tab) 2 tab SL DAILY [facility] Stop: 06/21/25 08:59 Last Admin: 05/22/25 08:24 Dose: 2 tab Documented By: sage Enoxaparin Sodium (Enoxaparin Inj 40 Mg/0.4 Ml Syr) 40 mg SQ QAM [facility] Stop: 06/21/25 08:59 Last Admin: 05/22/25 08:25 Dose: 40 mg Documented By: sage Folic Acid (Folic Acid 1 Mg Tab) 1 mg PO QAM [facility] Stop: 06/21/25 08:59 Last Admin: 05/22/25 08:25 Dose: 1 mg Documented By: sage Gabapentin (Gabapentin 300 Mg Cap) 300 mg PO TID [facility] Stop: 06/21/25 00:59 Last Admin: 05/22/25 08:24 Dose: 300 mg Documented By: sage Admin: 05/22/25 02:07 Dose: Not Given Documented By: africa Heparin Sodium (Porcine) (Heparin 100 Unit/Ml 5ml Flush) 5 ml FLUSH PRN PRN PRN Reason: Flush Stop: 06/21/25 06:18 Last Admin: 05/22/25 06:24 Dose: 5 ml Documented By: AMY Cefepime HCl (Maxipime 2000mg) 2,000 mg in 20 mls @ 5 mls/min IV Q8H [facility]; Protocol Stop: 05/24/25 05:59 Last Admin: 05/22/25 06:16 Dose: 5 mls/min Documented By: ACMiguel Vancomycin HCl 1,250 mg/ (Sodium Chloride) 275 mls @ 200 mls/hr IV Q8H [facility] Stop: 05/24/25 07:59 Last Infusion: 05/22/25 10:01 Dose: Infused Documented By: sage Admin: 05/22/25 08:13 Dose: 200 mls/hr Documented By: sage Lactated Ringer's (Lr) 1,000 mls @ 100 mls/hr IV .Q10H [facility] Stop: 05/23/25 00:00 Last Admin: 05/22/25 08:15 Dose: 100 mls/hr Documented By: sage Lansoprazole (Lansoprazole 30 Mg Soltab) 30 mg PO BID [facility] Stop: 06/21/25 00:59 Last Admin: 05/22/25 08:25 Dose: 30 mg Documented By: sage Admin: 05/22/25 03:29 Dose: 30 mg Documented By: africa Multivitamins (Multivitamin Tab) 1 tab PO QAM [facility] Stop: 06/21/25 08:59 Last Admin: 05/22/25 08:24 Dose: 1 tab Documented By: sage Nicotine (Nicotine 21 Mg/24 Hr Tdsy) 1 patch TD HS [facility] Stop: 06/20/25 23:54 Last Admin: 05/22/25 01:01 Dose: 1 patch Documented By: PAG (1) Sepsis Sepsis type: sepsis due to unspecified organism Sepsis acute organ dysfunction status: with acute organ dysfunction Severe sepsis acute organ dysfunction type: acute renal failure Acute renal failure type: with acute tubular necrosis Severe sepsis shock status: without septic shock Qualified Code(s): A41.9 - Sepsis, unspecified organism; R65.20 - Severe sepsis without septic shock; N17.0 - Acute kidney failure with tubular necrosis (3) Acute kidney failure Acute renal failure type: unspecified Qualified Code(s): N17.9 - Acute kidney failure, unspecified
[2025-05-22] MEDS: REMOVE NICODERM PATCH SCH (21:14)
[2025-05-22] MEDS: diphenhydrAMINE Capsule 25 MG CAP PO ONE (23:03)
--- NOTE | 2025-05-23 05:53 | Electrocardiogram Report ---
Test Reason : Blood Pressure : */* mmHG Vent. Rate : 91 BPM Atrial Rate : 91 BPM P-R Int : 136 ms QRS Dur : 76 ms QT Int : 356 ms P-R-T Axes : 50 62 67 degrees QTcB Int : 437 ms Normal sinus rhythm Normal ECG When compared with ECG of 28-Jun-2023 11:21, No significant change was found Confirmed by Cory Araujo ([id number]) on 05/23/2025 5:53:40 AM Referred By: REFERRED SELF Confirmed By: Cory Araujo
[2025-05-23 07:40] LABS: Hematocrit (blood only) 29.7 % (42.0-52.0); Hemoglobin 9.8 g/dl (14.0-18.0); Mean Corpuscular Hemoglobin 27.1 pg (25.0-34.0); Mean Corpuscular Volume 82.0 fL (80.0-100.0); Platelet Count 247 K/uL (130-400); RDW Standard Deviation 46.9 fL (36.4-46.3); Red Blood Count 3.62 M/uL (4.70-6.10); White Blood Count 7.89 K/ul (4.8-10.8)
[2025-05-23] MEDS: VANCOMYCIN LEVEL ONE (07:50)
[2025-05-23 08:06] LABS: Alanine Aminotransferase 39.0 U/L (7-52); Albumin Globulin Ratio 0.8 (0.9-2); Albumin Level 2.9 gm/dl (3.4-5.0); Alkaline Phosphatase 299.0 U/L (34-104); Anion Gap 6.0 (3-11); Bilirubin,Total 2.8 mg/dl (0.2-1.0); Blood Urea Nitrogen 7.0 mg/dl (6-23); Calcium 8.6 mg/dl (8.6-10.3); Carbon Dioxide 27.0 mmol/L (21-32); Chloride 102.0 mmol/L (98-107); Creatinine Clr Calc Pharmacy 169.1 ml/min; Globulin 3.8 gm/dl (2.5-4.0); Glucose 99.0 mg/dl (70-99(Fasting)); Magnesium 1.9 mg/dl (1.7-2.4); Potassium 3.8 mmol/L (3.5-5.1); Sodium 135.0 mmol/L (136-145); Total Protein 6.7 gm/dl (6.0-8.3)
[2025-05-23] MEDS: THIAMINE HCL 100 MG TAB PO SCH (08:46)
[2025-05-23] MEDS: BUPRENORPHINE/NALOXONE 8/2 MG TAB SL ONE (09:49)
--- NOTE | 2025-05-23 14:46 | Hospitalist Progress Note ---
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 #Sepsis #CLABSI #Serratia Bacteremia #R/o CAP vs. other chronic lung infection -potential sources include developing lung infection vs. 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 This time includes: history taking, physical examination, medical decision making, counseling, ECG interpretation, imaging interpretation, lab interpretation, orders, and education, excluding time spent in the performance of separately billed services. Admission and Anticipated Discharge Date Admission Date: May 21, 2025 Subjective Patient seen and examined at bedside. Patient doing well today feels at his baseline. He wants to go home today. Discussed this at length, attempts were made but cultures came back with Serratia, which is a likely line infection. Must wait for blood culture clearance, likely removal of line and replacement along with 14 days of IV abx therapy before going home. He was appreciative of the update. Review of Systems Review of Systems: CONSTITUTIONAL: fevers, chills EYES: Patient denies any visual symptoms. EARS, NOSE, AND THROAT: No difficulties with hearing. No symptoms of rhinitis or sore throat. CARDIOVASCULAR: Patient denies chest pains, palpitations, orthopnea and paroxysmal nocturnal dyspnea. RESPIRATORY: No dyspnea on exertion, no wheezing or cough. GI: No nausea, vomiting, diarrhea, constipation, abdominal pain, hematochezia or melena. : No urinary hesitancy or dribbling. No nocturia or urinary frequency. No abnormal urethral discharge. MUSCULOSKELETAL: No myalgias or arthralgias. NEUROLOGIC: No chronic headaches, no seizures. Patient denies numbness, tingling or weakness. PSYCHIATRIC: Patient denies problems with mood disturbance. No problems with anxiety. ENDOCRINE: No excessive urination or excessive thirst. DERMATOLOGIC: Patient denies any rashes or skin changes. Physical Exam Physical Exam: Gen: A&O 3 NAD HEENT: NCAT, EOMI, not icteric. External ears normal. No rhinorrhea. Moist mucous membranes. Neck: Supple, full range of motion, no observable masses, No meningeal sign. Lungs: No Respiratory distress. CV: RRR, no edema. Abdomen: Soft, nondistended, No rebound tenderness. MSK: No joint swelling, no redness. No evidence of line or surrounding tissue infection Skin: No rashes, petechiae, lesions. Normal color per patient. Neuro: Normal Gait, Grossly intact. Psych: Appropriate for situation. Results & Data Results & Data Vital Signs (Past 12 Hours) Vital Signs Temp Pulse Pulse Resp BP Pulse Ox O2 Del Method 05/23/25 13:12 74 05/23/25 11:07 36.8 C 84 18 108/69 94 Room Air 05/23/25 07:10 36.7 C 73 18 103/64 97 Room Air 05/23/25 05:28 69 Laboratory Results -personally reviewed, leukocytosis downtrending, creatinine at baseline, LFTs decreasing Medications Administered Azithromycin (Azithromycin 250 Mg Tab) 500 mg PO QAM [facility] Stop: 05/27/25 08:59 Last Admin: 05/23/25 08:46 Dose: 500 mg Documented By: sage Admin: 05/22/25 09:39 Dose: 500 mg Documented By: sage Buprenorphine/Naloxone (Buprenorphine/Naloxone 8/2 Mg Tab) 2 tab SL DAILY [facility] Stop: 06/21/25 08:59 Last Admin: 05/23/25 08:45 Dose: 2 tab Documented By: sage Admin: 05/22/25 08:24 Dose: 2 tab Documented By: sage Enoxaparin Sodium (Enoxaparin Inj 40 Mg/0.4 Ml Syr) 40 mg SQ QAM [facility] Stop: 06/21/25 08:59 Last Admin: 05/23/25 08:46 Dose: 40 mg Documented By: sage Admin: 05/22/25 08:25 Dose: 40 mg Documented By: sage Folic Acid (Folic Acid 1 Mg Tab) 1 mg PO QAM [facility] Stop: 06/21/25 08:59 Last Admin: 05/23/25 08:45 Dose: 1 mg Documented By: sage Admin: 05/22/25 08:25 Dose: 1 mg Documented By: sage Gabapentin (Gabapentin 300 Mg Cap) 300 mg PO TID [facility] Stop: 06/21/25 00:59 Last Admin: 05/23/25 13:38 Dose: 300 mg Documented By: sage Admin: 05/23/25 08:46 Dose: 300 mg Documented By: sage Admin: 05/22/25 21:14 Dose: 300 mg Documented By: Admin: 05/22/25 14:30 Dose: Not Given Documented By: Admin: 05/22/25 08:24 Dose: 300 mg Documented By: sage Admin: 05/22/25 02:07 Dose: Not Given Documented By: africa Heparin Sodium (Porcine) (Heparin 100 Unit/Ml 5ml Flush) 5 ml FLUSH PRN PRN PRN Reason: Flush Stop: 06/21/25 06:18 Last Admin: 05/22/25 06:24 Dose: 5 ml Documented By: AMY Cefepime HCl (Maxipime 2000mg) 2,000 mg in 20 mls @ 5 mls/min IV Q8H [facility]; Protocol Stop: 06/05/25 05:59 Last Admin: 05/23/25 13:38 Dose: 5 mls/min Documented By: sage Admin: 05/23/25 05:56 Dose: 5 mls/min Documented By: Admin: 05/22/25 21:14 Dose: 5 mls/min Documented By: Admin: 05/22/25 14:30 Dose: 5 mls/min Documented By: Admin: 05/22/25 06:16 Dose: 5 mls/min Documented By: AMY Lansoprazole (Lansoprazole 30 Mg Soltab) 30 mg PO BID [facility] Stop: 06/21/25 00:59 Last Admin: 05/23/25 08:45 Dose: 30 mg Documented By: sage Admin: 05/22/25 21:14 Dose: 30 mg Documented By: Admin: 05/22/25 08:25 Dose: 30 mg Documented By: sage Admin: 05/22/25 03:29 Dose: 30 mg Documented By: africa Miscellaneous (Remove Nicoderm Patch) 1 each N/A DAILY@2058 [facility] Stop: 06/21/25 20:58 Last Admin: 05/22/25 21:14 Dose: 1 each Documented By: KAMILLE Multivitamins (Multivitamin Tab) 1 tab PO QAM [facility] Stop: 06/21/25 08:59 Last Admin: 05/23/25 08:46 Dose: 1 tab Documented By: sage Admin: 05/22/25 08:24 Dose: 1 tab Documented By: sage Nicotine (Nicotine 21 Mg/24 Hr Tdsy) 1 patch TD HS [facility] Stop: 06/20/25 23:54 Last Admin: 05/22/25 21:14 Dose: 1 patch Documented By: Admin: 05/22/25 01:01 Dose: 1 patch Documented By: ODETTE Thiamine HCl (Thiamine Hcl 100 Mg Tab) 100 mg PO QAM [facility] Stop: 06/22/25 08:59 Last Admin: 05/23/25 08:46 Dose: 100 mg Documented By: sage (1) Sepsis Sepsis type: sepsis due to unspecified organism Sepsis acute organ dysfunction status: with acute organ dysfunction Severe sepsis acute organ dysfunction type: acute renal failure Acute renal failure type: with acute tubular necrosis Severe sepsis shock status: without septic shock Qualified Code(s): A41.9 - Sepsis, unspecified organism; R65.20 - Severe sepsis without septic shock; N17.0 - Acute kidney failure with tubular necrosis (3) Acute kidney failure Acute renal failure type: unspecified Qualified Code(s): N17.9 - Acute kidney failure, unspecified
[2025-05-23] MEDS: LACTATED RINGER'S 1,000 ML IV SCH (15:06)
[2025-05-23] MEDS: OPTIRAY 320 100ml IV ONE (16:07)
--- NOTE | 2025-05-23 16:41 | CT Scan Report ---
Technique: Axial computed tomography images were obtained of the chest after the administration of intravenous contrast Findings: There is a 9 mm partially cavitary nodule with hazy margins in the left lower lobe. There are more than 15 smaller scattered pulmonary nodules with hazy margins bilaterally, measuring up to 8 mm. There is subsegmental atelectasis in both lower lobes. There is no pleural effusion or pneumothorax. There are small calcified granulomas in the left lower lobe. No endobronchial lesion is seen There are small subcentimeter mediastinal lymph nodes. There is no overt mediastinal, hilar, or axillary adenopathy. The thoracic aorta appears unremarkable with no sign of aneurysm or dissection. There is no pericardial effusion No fracture is seen. No focal osseous lesion is evident Impression: 1. Multiple scattered pulmonary nodules with hazy margins. These are likely inflammatory nodules such as from atypical pneumonia or septic emboli 2. Mild bilateral lower lobe atelectasis ACT 112: Positive. There are findings on this exam that require communication between the performing entity and the patient following Patient Test Result Information Act ([place] ACT 112) guidelines. Electronically signed by Nikolay Perez 05-23-2025 4:40 PM
--- NOTE | 2025-05-23 16:51 | CT Scan Report ---
Clinical History: Bacteremia Technique: Axial computed tomography images were obtained of the abdomen and pelvis after the administration of intravenous contrast. Comparison is made to the prior CT dated 05/21/2025 Findings: The liver is overall of normal size, attenuation, and contour with no sign of cirrhosis or significant fatty infiltration. No liver mass lesion is seen. The portal vein is patent. Gallstones are again seen. There is no definite sign of acute cholecystitis. No bile duct dilatation is noted. The spleen is of normal size. No focal splenic lesion is evident. The pancreas appears normal with no sign of acute or chronic pancreatitis and no mass lesion noted. The pancreatic duct is of normal caliber. The adrenal glands appear unremarkable. No definite renal or proximal ureteral calculi are seen on this contrast-enhanced study. There is no hydronephrosis or perinephric stranding. No renal mass lesion is identified. The aorta is of normal caliber. There is unchanged mild mesenteric adenopathy, with lymph nodes measuring up to 1.2 cm in size. Again seen is a large open anterior abdominal wall wound. As before, small bowel extends to the surface of the wound, raising the possibility of an enterocutaneous fistula. A prominent stent is again seen within a segment of jejunum adjacent to the inferior right hepatic lobe and gallbladder. The stomach appears normal. There is no sign of small bowel obstruction. Postsurgical changes are again seen of colonic and rectal resection. A left lower quadrant ileostomy is again seen with unchanged parastomal herniation of small bowel. No free intraperitoneal fluid or air is identified. No distal ureteral or bladder calculi are seen. No bladder mass lesion is evident. The iliac arteries are of normal caliber. No pelvic adenopathy is noted. No fracture is identified. No focal osseous lesion is seen Impression: 1. Unchanged open anterior abdominal wall wound with a possible enterocutaneous fistula 2. Unchanged stent within a segment of jejunum in the right upper quadrant 3. Cholelithiasis without evidence of acute cholecystitis 4. Mild mesenteric adenopathy ACT 112: Positive. There are findings on this exam that require communication between the performing entity and the patient following Patient Test Result Information Act ([place] ACT 112) guidelines. Electronically signed by Nikolay Perez 05-23-2025 4:51 PM
[2025-05-23] MEDS: ACETAMINOPHEN 1,000 MG/100 ML VIAL IV PRN (19:46)
[2025-05-23] MEDS: diphenhydrAMINE Capsule 25 MG CAP PO ONE (22:45)
--- NOTE | 2025-05-23 23:32 | Ultrasound Report ---
Exam(s): US VENOUS RIGHT UPPER EXTREMITY EXAM: US Duplex Right Upper Extremity Veins CLINICAL HISTORY: Reason for exam: look for thrombus in right arm, septic emboli. TECHNIQUE: Real-time duplex ultrasound scan of the right upper extremity veins integrating B-mode two-dimensional vascular structure, Doppler spectral analysis, color flow Doppler imaging and compression. COMPARISON: No relevant prior studies available. FINDINGS: Deep veins: Unremarkable. No DVT in the internal jugular, subclavian, axillary, or brachial veins. The veins demonstrate normal color flow, are normally compressible, with normal phasic flow and/or augmentation response. Superficial veins: Unremarkable. No thrombus in the visualized basilic and cephalic veins. Soft tissues: No acute findings. Tubes, lines and devices: There is a PICC line visible within the brachial, axillary, and subclavian veins. No thrombus is seen. Other findings: No evidence of venous thrombosis in the right upper extremity. IMPRESSION: 1. There is a PICC line visible within the brachial, axillary, and subclavian veins. No thrombus is seen. 2. No evidence of venous thrombosis in the right upper extremity. Electronically signed by: Jeronimo Sung MD 05/23/25 23:31 PM
[2025-05-24 08:35] LABS: Hematocrit (blood only) 31.3 % (42.0-52.0); Hemoglobin 10.3 g/dl (14.0-18.0); Mean Corpuscular Hemoglobin 27.2 pg (25.0-34.0); Mean Corpuscular Volume 82.8 fL (80.0-100.0); Platelet Count 284 K/uL (130-400); RDW Standard Deviation 47.0 fL (36.4-46.3); Red Blood Count 3.78 M/uL (4.70-6.10); White Blood Count 6.79 K/ul (4.8-10.8)
[2025-05-24 08:51] LABS: Alanine Aminotransferase 46.0 U/L (7-52); Albumin Globulin Ratio 0.8 (0.9-2); Albumin Level 3.0 gm/dl (3.4-5.0); Alkaline Phosphatase 364.0 U/L (34-104); Anion Gap 8.0 (3-11); Bilirubin,Total 3.9 mg/dl (0.2-1.0); Blood Urea Nitrogen 7.0 mg/dl (6-23); Calcium 8.7 mg/dl (8.6-10.3); Carbon Dioxide 27.0 mmol/L (21-32); Chloride 102.0 mmol/L (98-107); Creatinine Clr Calc Pharmacy 168.4 ml/min; Globulin 3.9 gm/dl (2.5-4.0); Glucose 97.0 mg/dl (70-99(Fasting)); Potassium 3.6 mmol/L (3.5-5.1); Sodium 137.0 mmol/L (136-145); Total Protein 6.9 gm/dl (6.0-8.3)
--- NOTE | 2025-05-24 09:35 | Pulmonary Consultation ---
Date of Consultation May 24, 2025 Assessment & Plan (1) Multiple pulmonary nodules determined by computed tomography of lung: (2) Serratia septicemia: (3) PICC (peripherally inserted central catheter) in place: (4) On total parenteral nutrition (TPN): (5) Tobacco use disorder: Plan I don't think that the lung nodules are the source of the bacteremia. They may or may not be septic emboli, and, as mentioned above, may not even be new. It is not unheard of for TPN impurities to show up similarly (Calcium phosphate, lipid globules, etc...), but those are usually diagnosed in the absence of bacteremia. I would defer the issue of changing or keeping the PICC to ID. If Azithromycin is being used for possible pneumonia, then I recommend stopping it. Patient should be counseled regarding smoking cessation. Pulmonary nodules should be followed to make sure that they don't enlarge or increase in number. Very unlikely that they are malignant, but should be monitored. Further characterization with PET/CT would me misleading at this point, with increased likelihood for false-positive increased FDG-avidity if they represent septic emboli. History of Present Illness Attending Physician: Brett Faiban MD History of Present Illness The patient is a very pleasant 34-year-old male who presented to the ED with complaints of headache and fatigue. He reported that his symptoms began 4 to 5 days prior, with no improvement. He expressed concern for infection due to experiencing fevers, chills, and a general sense of not feeling well. He has a PICC line in place for TPN administration (Crohn's). He typically follows closely with [facility] in [place], including their GI team. He denied chest pain, shortness of breath, breathing difficulties, abdominal pain, blood in stool or urine, any recent illness, or recent travel. His past medical history was significant for Crohn's disease status post ileostomy, history of EC fistula and abdominal abscesses status post drainage, duodenal perforation status post surgery (2023), esophagitis/esophageal stenosis with ongoing TPN nutrition, Chronic Inflammatory Demyelinating Polyneuropathy (CIDP) , chronic hyponatremia, chronic anemia (baseline Hgb 13), alcohol abuse, narcotic addiction on Suboxone, anxiety/mood disorder, and ongoing tobacco abuse. The initial CXR was interpreted as not showing much abnormalities. CT of abdomen and pelvis on admission was compared to a similar study from June 2023, and was interpreted as showing "New nodular densities at the lung bases, larger on the left than the right", which "may represent areas of focal airspace disease or developing pulmonary nodules." A CT of the chest was obtained on 05/23/2025, and was interpreted as showing "Multiple scattered pulmonary nodules with hazy margins. These are likely inflammatory nodules such as from atypical pneumonia or septic emboli". Because of blood cultures growing Serratia marcescens, and the potential need to change the PICC, Dr. Fabian asked me to evaluate the patient and render an opinion on whether or not the nodular changes are septic emboli or a primary Serratia marcescens pneumonia contributing to the bacteremia. I reviewed the above studies, and I interviewed the patient and examined him. The patient denies symptoms of cough or dyspnea or hemoptysis. I reviewed imaging-study reports, as well as multiple imaging studies. From my review of the CT scans, the pulmonary-nodular densities may not be new. Abdominal CT from 06/2023 showed more extensive changes in the left lung base, where one of the nodular areas is seen. I don't think that the lung nodules are the source of the bacteremia. They may or may not be septic emboli, and, as mentioned above, may not even be new. It is not unheard of for TPN impurities to show up similarly (Calcium phosphate, lipid globules, etc...), but those are usually diagnosed in the absence of bacteremia. I would defer the issue of changing or keeping the PICC to ID. Allergies Allergy/AdvReac Type Severity Reaction Status Date / Time Fish Containing Products Allergy Unknown Verified 05/21/25 21:13 fish derived Allergy Unknown Verified 05/21/25 21:13 fish oil Allergy Unknown Verified 05/21/25 21:13 shellfish derived Allergy Unknown Verified 05/21/25 21:13 adalimumab [From Humira] AdvReac Severe CONVULSIONS Verified 05/21/25 21:13 infliximab [From Remicade] AdvReac Severe CONVULSIONS Verified 05/21/25 21:13 methotrexate AdvReac Severe CONVULSIONS Verified 05/21/25 21:13 SEAFOOD AdvReac Intermediate BLOATING/GAS Uncoded 05/21/25 21:13 DISCOMFORT Home Medications Medication Instructions Recorded Confirmed Type buprenorphine 8 mg-naloxone 2 mg 2 tab sublingual DAILY 06/22/22 05/21/25 History sublingual tablet tadalafil 5 mg tablet 5 mg PO DAILY PRN Erectile 08/02/22 05/21/25 History Dysfunction gabapentin 300 mg capsule 300 mg PO TID 04/07/23 05/21/25 History lansoprazole 30 mg delayed 30 mg PO AMHS 05/21/25 05/21/25 History release,disintegrating tablet risankizumab-rzaa 360 mg/2.4 mL 360 mg subcut .EVERY 8 WEEKS 05/21/25 05/21/25 History (150 mg/mL) subcut wearable injector (Sovicentejuly) Patient History Medical History Open abdominal wall wound Acute anxiety Depression Arthritis Surgical History History of wisdom tooth extraction History of knee surgery Bilateral knee scopes Family History Other Diabetes Social History Smoking Status: Current every day smoker Tobacco Type: Cigarettes Cigarettes Per Day: 1 pack per day; Second Hand Exposure: Yes; Do You Dip or Chew Tobacco: No; Hx Alcohol Use: Yes Alcohol type: beer Hx Substance Use: Yes Prescribed Medications: Former Misuse of Rx Meds Non- Prescribed Medications: Marijuana Last Used Substance: Hours (ago) Last Used Substance Other:: 06/28/2023 Substance Use Type Other:: suboxone Preferred Language: Somali Communication Ability: Effective Elevator Mechanic Required: No Beliefs That Will Affect Care: None Current Living Situation: Significant Other Other Information That Helps Us Care for You: No Feels Safe at Home: Yes Safety Concerns: Feels Safe At This Time Assistive Devices: Lift Chair, Walker and Wheelchair Review of Systems Review of Systems: All systems reviewed & are unremarkable except as noted in HPI & below Physical Exam Physical Exam: Vitals and labs reviewed. General: In no acute distress, breathing room-air. Skin: Warm and dry to touch. Noobvious lesions. (see abdominal exam for ileostomy). Eyes: Anicteric.Noconjunctival hyperemia or exudates.No periorbital edema. ENT: No oral thrush. No oropharyngeal erythema or exudates. Neck: No palpable masses or adenopathy. Respiratory: Normal breath sounds, no wheezing or crackles. No use of accessory muscles and no prolonged exhalation. Cardiac: Distant sounds, regular rhythm, no murmurs, no gallops, no rubs; could not appreciate JV pulse elevation. GI: Soft, nontender, large mucosal erosion over LLQ associated with ileostomy covered by drainage bag. Dark green drainage in ileostomy bag. Extremities: Diffuse digital clubbing,no cyanosis,no edema. PICC to right arm without evidence of hyperemia or tenderness. Neuro: No gross motor deficits. Seems appropriate. Results & Data Results & Data Vital Signs (Past 12 Hours) Vital Signs Temp Pulse Pulse Resp BP Pulse Ox O2 Del Method 05/24/25 07:09 36.7 C 75 18 116/74 95 Room Air 05/24/25 03:21 36.9 C 74 16 108/70 96 Room Air 05/23/25 22:12 36.7 C 79 18 114/73 95 Room Air 05/23/25 21:58 75 Laboratory Results 05/23/25 10:56 Aerobic Blood Culture - Preliminary Blood No growth in Aerobic bottle after 24 hours. Anaerobic Blood Culture - Preliminary No growth in Anaerobic bottle after 24 hours. 05/23/25 10:10 Aerobic Blood Culture - Preliminary Blood No growth in Aerobic bottle after 24 hours. Anaerobic Blood Culture - Preliminary No growth in Anaerobic bottle after 24 hours. 05/21/25 18:34 Aerobic Blood Culture - Preliminary Blood Serratia marcescens Anaerobic Blood Culture - Preliminary Serratia marcescens 05/21/25 18:43 Aerobic Blood Culture - Preliminary Blood Serratia marcescens Anaerobic Blood Culture - Preliminary Serratia marcescens 05/24/25 07:39 WBC 6.79 RBC 3.78 L Hgb 10.3 L Hct 31.3 L MCV 82.8 MCH 27.2 MCHC 32.9 RDW Std Deviation 47.0 H RDW Coeff of Mindi 15.5 H Plt Count 284 MPV 11.8 Sodium 137 Potassium 3.6 Chloride 102 Carbon Dioxide 27 Anion Gap 8 BUN 7 Creatinine 0.64 Est Cr Clr Drug Dosing 168.4 eGFR 126.61 BUN/Creatinine Ratio 10.9 Glucose 97 Calcium 8.7 Total Bilirubin 3.9 H AST 40 H ALT 46 Alkaline Phosphatase 364 H Total Protein 6.9 Albumin 3.0 L Globulin 3.9 Albumin/Globulin Ratio 0.[address] Scan Report Service Date: 05/21/25 COMPARISON:06/28/2023 FINDINGS: CT ABDOMEN: IMPRESSION: Redemonstration of midline open wound with 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 Left lower quadrant ileostomy with left parastomal hernia without evidence of obstruction. Stable Endoscopy stent located in the right upper quadrant loop of bowel. Cholelithiasis. New nodular densities at the lung bases, larger on the left than the right. They may represent areas of focal airspace disease or developing pulmonary nodules. No drainable abscesses appreciated. Electronically signed by William Leonard 05-21-2025 8:42 PM Dictated: 05/21/[address] 05/23/25 14:42 Impression: 1. Multiple scattered pulmonary nodules with hazy margins. These are likely i nflammatory nodules such as from atypical pneumonia or septic emboli 2. Mild bilateral lower lobe atelectasis Electronically signed by Nikolay Perez 05-23-2025 4:40 PM Abdomen/Pelvis CT 05/23/25 14:43 Clinical History: Bacteremia Technique: Axial computed tomography images were obtained of the abdomen and pelvis after the administration of intravenous contrast. Comparison is made to the prior CT dated 05/21/2025 Findings: Impression: 1. Unchanged open anterior abdominal wall wound with a possible enterocutaneous fistula 2. Unchanged stent within a segment of jejunum in the right upper quadrant 3. Cholelithiasis without evidence of acute cholecystitis 4. Mild mesenteric adenopathy Electronically signed by Nikolay Perez 05-23-2025 4:51 PM Venous Doppler Study 05/23/25 17:28 Exam(s): US VENOUS RIGHT UPPER EXTREMITY COMPARISON: No relevant prior studies available. IMPRESSION: 1. There is a PICC line visible within the brachial, axillary, and subclavian veins. No thrombus is seen. 2. No evidence of venous thrombosis in the right upper extremity. Electronically signed by: Jeronimo Sung MD 05/23/25 23:31 PM Medications Administered Home Medications Medication Instructions Recorded Confirmed Last Taken buprenorphine 8 mg-naloxone 2 mg 2 tab sublingual DAILY 06/22/22 05/21/25 04/05/23 sublingual tablet tadalafil 5 mg tablet 5 mg PO DAILY PRN Erectile 08/02/22 05/21/25 Unknown Dysfunction gabapentin 300 mg capsule 300 mg PO TID 04/07/23 05/21/25 04/07/23 08:00 lansoprazole 30 mg delayed 30 mg PO AMHS 05/21/25 05/21/25 Unknown release,disintegrating tablet risankizumab-rzaa 360 mg/2.4 mL 360 mg subcut .EVERY 8 WEEKS 05/21/25 05/21/25 Unknown (150 mg/mL) subcut wearable injector (Cullen) Active Medications Generic Name Dose Route Start Last Admin Trade Name Freq PRN Reason Stop Dose Admin Azithromycin 500 mg 05/22/25 09:00 05/24/25 09:22 Azithromycin 250 Mg Tab PO 05/27/25 08:59 500 mg QAM CHYNA Administration Buprenorphine/Naloxone 2 tab 05/22/25 09:00 05/24/25 09:22 Buprenorphine/Naloxone 8/2 Mg Tab SL 06/21/25 08:59 2 tab DAILY CHYNA Administration Enoxaparin Sodium 40 mg 05/22/25 09:00 05/24/25 09:22 Enoxaparin Inj 40 Mg/0.4 Ml Syr SQ 06/21/25 08:59 40 mg QAM CHYNA Administration Folic Acid 1 mg 05/22/25 09:00 05/24/25 09:22 Folic Acid 1 Mg Tab PO 06/21/25 08:59 1 mg QAM CHYNA Administration Gabapentin 300 mg 05/22/25 01:00 05/24/25 09:22 Gabapentin 300 Mg Cap PO 06/21/25 00:59 300 mg TID CHYNA Administration Heparin Sodium (Porcine) 5 ml 05/22/25 06:19 05/23/25 21:06 Heparin 100 Unit/Ml 5ml Flush FLUSH 06/21/25 06:18 5 ml PRN PRN Administration Flush Lactated Ringer's 1,000 mls @ 100 mls/hr 05/23/25 15:00 05/24/25 05:39 Lr IV 05/26/25 14:59 100 mls/hr .Q10H CHYNA Administration Acetaminophen 1,000 mg in 100 mls @ 400 mls/hr 05/23/25 19:14 05/23/25 20:05 Ofirmev IV 05/26/25 19:13 Infused Q8H PRN Infusion Pain Ceftriaxone Sodium 2,000 mg in 50 mls @ 100 mls/hr 05/24/25 12:00 05/24/25 13:24 Rocephin IV 05/29/25 11:59 100 mls/hr Q24H CHYNA Administration Lansoprazole 30 mg 05/22/25 01:00 05/24/25 09:22 Lansoprazole 30 Mg Soltab PO 06/21/25 00:59 30 mg BID CHYNA Administration Miscellaneous 1 each 05/22/25 20:59 05/23/25 21:09 Remove Nicoderm Patch N/A 06/21/25 20:58 1 each DAILY@2058 CHYNA Administration Multivitamins 1 tab 05/22/25 09:00 05/24/25 09:23 Multivitamin Tab PO 06/21/25 08:59 1 tab QAM CHYNA Administration Nicotine 1 patch 05/21/25 23:55 05/23/25 21:07 Nicotine 21 Mg/24 Hr Tdsy TD 06/20/25 23:54 1 patch HS CHYNA Administration Thiamine HCl 100 mg 05/23/25 09:00 05/24/25 09:23 Thiamine Hcl 100 Mg Tab PO 06/22/25 08:59 100 mg QAM CHYNA Administration PG Care Time/CCT Total # of Minutes Spent Total Time Spent with Patient: Total time spent is greater than 50% in coordination of care (as documented) at patient's floor/unit and/or counseling patient: Coding Level of Care Code 39737 IN/OBS CONSULT LVL 5,80M Diagnoses Multiple pulmonary nodules determined by computed tomography of lung R91.8 Serratia septicemia A41.53 PICC (peripherally inserted central catheter) in place Z45.2 On total parenteral nutrition (TPN) Z78.9 Tobacco use disorder F17.200 Time Spent (min) 85 Comment Review chart/ imaging studies, history/ physical, update patient, family, nurse, provider.
--- NOTE | 2025-05-24 12:13 | Hospitalist Progress Note ---
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 #Sepsis #CLABSI #Serratia Bacteremia #Septic Emboli -hemodynamically stable, feeling much better overall -cultures growin Serratia -unclear source of septic emboli vs. atypical infection, RUE scan did not reveal thrombus Plan: -continue 100cc/hr LR maintenance fluids given bacteremia -stop cefepime, rotate to ceftriaxone given sensitivities -discussed with ID, will remove and replace PICC line after 48 hours of negative cultures -check echo for endocarditis -pulmonary consulted for atypical infection vs. septic emboli, appreciate recs -restart TPN once new catheter placed #Alcohol Use -AWSS trending and medication prn #Opioid Use Disorder, in remission -continue suboxone hx Crohn's disease status post surgery history enterocutaneous fistula/abdominal abscesses status post drainage duodenal perforation status post surgery (2023) esophagitis/esophageal stenosis ongoing TPN nutrition CIDP as per records Acute on chronic anemia, patient without overt bleeding complaints narcotic addiction on Suboxone Chronic hyponatremia Hyperglycemia ro DM ongoing tobacco abuse I spent a total of 50 minutes in direct patient care, including [id number] time with the patient and/or family, reviewing medical records, ordering and reviewing diagnostic tests, and coordinating care with other healthcare providers. This time includes: history taking, physical examination, medical decision making, counseling, ECG interpretation, imaging interpretation, lab interpretation, orders, and education, excluding time spent in the performance of separately billed services. Admission and Anticipated Discharge Date Admission Date: May 21, 2025 Subjective Patient seen and examined at bedside. Patient doing well today. Discussed plan for today including pulmonary consult, discussing case with ID given Serratia is a likely line infection. He was appreciative of the update. Review of Systems Review of Systems: CONSTITUTIONAL: fevers, chills, resolved EYES: Patient denies any visual symptoms. EARS, NOSE, AND THROAT: No difficulties with hearing. No symptoms of rhinitis or sore throat. CARDIOVASCULAR: Patient denies chest pains, palpitations, orthopnea and paroxysmal nocturnal dyspnea. RESPIRATORY: No dyspnea on exertion, no wheezing or cough. GI: No nausea, vomiting, diarrhea, constipation, abdominal pain, hematochezia or melena. : No urinary hesitancy or dribbling. No nocturia or urinary frequency. No abnormal urethral discharge. MUSCULOSKELETAL: No myalgias or arthralgias. NEUROLOGIC: No chronic headaches, no seizures. Patient denies numbness, tingling or weakness. PSYCHIATRIC: Patient denies problems with mood disturbance. No problems with anxiety. ENDOCRINE: No excessive urination or excessive thirst. DERMATOLOGIC: Patient denies any rashes or skin changes. Physical Exam Physical Exam: Gen: A&O 3 NAD HEENT: NCAT, EOMI, not icteric. External ears normal. No rhinorrhea. Moist mucous membranes. Neck: Supple, full range of motion, no observable masses, No meningeal sign. Lungs: No Respiratory distress. CV: RRR, no edema. Abdomen: Soft, nondistended, No rebound tenderness. MSK: No joint swelling, no redness. No evidence of line or surrounding tissue infection Skin: No rashes, petechiae, lesions. Normal color per patient. Neuro: Normal Gait, Grossly intact. Psych: Appropriate for situation. Results & Data Results & Data Vital Signs (Past 12 Hours) Vital Signs Temp Pulse Resp BP Pulse Ox O2 Del Method 05/24/25 11:07 36.6 C 86 18 112/70 96 Room Air 05/24/25 07:09 36.7 C 75 18 116/74 95 Room Air 05/24/25 03:21 36.9 C 74 16 108/70 96 Room Air Laboratory Results -personally reviewed, no leukocytosis, creatinine at baseline Medications Administered Azithromycin (Azithromycin 250 Mg Tab) 500 mg PO QAM [facility] Stop: 05/27/25 08:59 Last Admin: 05/24/25 09:22 Dose: 500 mg Documented By: Admin: 05/23/25 08:46 Dose: 500 mg Documented By: sage Admin: 05/22/25 09:39 Dose: 500 mg Documented By: sage Buprenorphine/Naloxone (Buprenorphine/Naloxone 8/2 Mg Tab) 2 tab SL DAILY [facility] Stop: 06/21/25 08:59 Last Admin: 05/24/25 09:22 Dose: 2 tab Documented By: Admin: 05/23/25 08:45 Dose: 2 tab Documented By: sage Admin: 05/22/25 08:24 Dose: 2 tab Documented By: sage Enoxaparin Sodium (Enoxaparin Inj 40 Mg/0.4 Ml Syr) 40 mg SQ QAM CHYNA Stop: 06/21/25 08:59 Last Admin: 05/24/25 09:22 Dose: 40 mg Documented By: Admin: 05/23/25 08:46 Dose: 40 mg Documented By: sage Admin: 05/22/25 08:25 Dose: 40 mg Documented By: sage Folic Acid (Folic Acid 1 Mg Tab) 1 mg PO QAM CHYNA Stop: 06/21/25 08:59 Last Admin: 05/24/25 09:22 Dose: 1 mg Documented By: Admin: 05/23/25 08:45 Dose: 1 mg Documented By: sage Admin: 05/22/25 08:25 Dose: 1 mg Documented By: sage Gabapentin (Gabapentin 300 Mg Cap) 300 mg PO TID CHYNA Stop: 06/21/25 00:59 Last Admin: 05/24/25 09:22 Dose: 300 mg Documented By: Admin: 05/23/25 21:06 Dose: 300 mg Documented By: Admin: 05/23/25 13:38 Dose: 300 mg Documented By: sage Admin: 05/23/25 08:46 Dose: 300 mg Documented By: sage Admin: 05/22/25 21:14 Dose: 300 mg Documented By: Admin: 05/22/25 14:30 Dose: Not Given Documented By: Admin: 05/22/25 08:24 Dose: 300 mg Documented By: sage Admin: 05/22/25 02:07 Dose: Not Given Documented By: africa Heparin Sodium (Porcine) (Heparin 100 Unit/Ml 5ml Flush) 5 ml FLUSH PRN PRN PRN Reason: Flush Stop: 06/21/25 06:18 Last Admin: 05/23/25 21:06 Dose: 5 ml Documented By: Admin: 05/23/25 16:43 Dose: 5 ml Documented By: sage Admin: 05/22/25 06:24 Dose: 5 ml Documented By: AMY Lactated Ringer's (Lr) 1,000 mls @ 100 mls/hr IV .Q10H CHYNA Stop: 05/26/25 14:59 Last Admin: 05/24/25 05:39 Dose: 100 mls/hr Documented By: Infusion: 05/24/25 01:06 Dose: Infused Documented By: Admin: 05/23/25 15:06 Dose: 100 mls/hr Documented By: sage Acetaminophen (Ofirmev) 1,000 mg in 100 mls @ 400 mls/hr IV Q8H PRN PRN Reason: Pain Stop: 05/26/25 19:13 Last Infusion: 05/23/25 20:05 Dose: Infused Documented By: Admin: 05/23/25 19:46 Dose: 400 mls/hr Documented By: HANNAH Lansoprazole (Lansoprazole 30 Mg Soltab) 30 mg PO BID CHYNA Stop: 06/21/25 00:59 Last Admin: 05/24/25 09:22 Dose: 30 mg Documented By: Admin: 05/23/25 21:06 Dose: 30 mg Documented By: Admin: 05/23/25 08:45 Dose: 30 mg Documented By: sage Admin: 05/22/25 21:14 Dose: 30 mg Documented By: Admin: 05/22/25 08:25 Dose: 30 mg Documented By: sage Admin: 05/22/25 03:29 Dose: 30 mg Documented By: africa Miscellaneous (Remove Nicoderm Patch) 1 each N/A DAILY@2058 [facility] Stop: 06/21/25 20:58 Last Admin: 05/23/25 21:09 Dose: 1 each Documented By: Admin: 05/22/25 21:14 Dose: 1 each Documented By: KAMILLE Multivitamins (Multivitamin Tab) 1 tab PO QAM CHYNA Stop: 06/21/25 08:59 Last Admin: 05/24/25 09:23 Dose: 1 tab Documented By: Admin: 05/23/25 08:46 Dose: 1 tab Documented By: sage Admin: 05/22/25 08:24 Dose: 1 tab Documented By: sage Nicotine (Nicotine 21 Mg/24 Hr Tdsy) 1 patch TD HS CHYNA Stop: 06/20/25 23:54 Last Admin: 05/23/25 21:07 Dose: 1 patch Documented By: Admin: 05/22/25 21:14 Dose: 1 patch Documented By: Admin: 05/22/25 01:01 Dose: 1 patch Documented By: ODETTE Thiamine HCl (Thiamine Hcl 100 Mg Tab) 100 mg PO QAM [facility] Stop: 06/22/25 08:59 Last Admin: 05/24/25 09:23 Dose: 100 mg Documented By: Admin: 05/23/25 08:46 Dose: 100 mg Documented By: sage (1) Sepsis Sepsis type: sepsis due to unspecified organism Sepsis acute organ dysfunction status: with acute organ dysfunction Severe sepsis acute organ dysfunction type: acute renal failure Acute renal failure type: with acute tubular necrosis Severe sepsis shock status: without septic shock Qualified Code(s): A41.9 - Sepsis, unspecified organism; R65.20 - Severe sepsis without septic shock; N17.0 - Acute kidney failure with tubular necrosis (3) Acute kidney failure Acute renal failure type: unspecified Qualified Code(s): N17.9 - Acute kidney failure, unspecified
--- NOTE | 2025-05-24 13:04 | XCELERA ---
[id number] [id number]
[2025-05-24] MEDS: cefTRIAXone SODIUM 2,000 MG/50 ML BAG IV SCH (13:24)
[2025-05-24] MEDS: diphenhydrAMINE Capsule 25 MG CAP PO ONE (23:03)
[2025-05-24 23:44] VITALS: O2SAT 95
[2025-05-25 08:11] LABS: Hematocrit (blood only) 30.4 % (42.0-52.0); Hemoglobin 9.8 g/dl (14.0-18.0); Mean Corpuscular Hemoglobin 26.9 pg (25.0-34.0); Mean Corpuscular Volume 83.5 fL (80.0-100.0); Platelet Count 300 K/uL (130-400); RDW Standard Deviation 47.2 fL (36.4-46.3); Red Blood Count 3.64 M/uL (4.70-6.10); White Blood Count 6.88 K/ul (4.8-10.8)
[2025-05-25 08:32] VITALS: RESP 18
[2025-05-25 09:00] LABS: Alanine Aminotransferase 40.0 U/L (7-52); Albumin Globulin Ratio 0.8 (0.9-2); Albumin Level 3.0 gm/dl (3.4-5.0); Alkaline Phosphatase 324.0 U/L (34-104); Anion Gap 9.0 (3-11); Bilirubin,Total 1.9 mg/dl (0.2-1.0); Blood Urea Nitrogen 5.0 mg/dl (6-23); Calcium 8.7 mg/dl (8.6-10.3); Carbon Dioxide 28.0 mmol/L (21-32); Chloride 100.0 mmol/L (98-107); Creatinine Clr Calc Pharmacy 166.3 ml/min; Globulin 3.9 gm/dl (2.5-4.0); Glucose 92.0 mg/dl (70-99(Fasting)); Potassium 3.6 mmol/L (3.5-5.1); Sodium 137.0 mmol/L (136-145); Total Protein 6.9 gm/dl (6.0-8.3)
--- NOTE | 2025-05-25 10:19 | Communication Note ---
Date of Service: May 25, 2025 Mr. Arnold is a 34-year-old man with history of Crohn's disease and complex abdominal surgical history starting at age 11 which started with colectomy and ileostomy creation, duodenal perforation in 2019 status post stent placement, intra-abdominal abscesses status post multiple ex laps and abdominal washout, chronic enterocutaneous fistula and TPN dependent receiving it through a PICC line. 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 On presentation, he was afebrile but tachycardic at 116, the rest of the vitals were within normal limits. Initial workup showed leukocytosis of 14.5 (ANC 7.5), normocytic anemia, elevated alkaline phosphatase (usually elevated but currently more than his baseline), elevated bilirubin (at baseline within normal limits), UA with 0-2 WBCs and no bacteria, negative RVP panel, and shortly after admission, blood culture comes back positive for Serratia. Given his complicated abdominal history, a CT abdomen pelvis was performed which showed unchanged open anterior abdominal wall with the enterocutaneous fistula and unchanged stent within the jejunum along with cholelithiasis but no evidence of acute cholecystitis. CT of the chest demonstrated multiple scattered pulmonary nodules concerning for atypical pneumonia or septic emboli. Microbiology: 05/21: 4/4 bottles of blood culture growing Serratia 05/22: Sputum culture with no growth 05/23: 2 sets of blood culture negative to date CT abdomen pelvis performed on 05/23: 1. Unchanged open anterior abdominal wall wound with a possible enterocutaneous fistula 2. Unchanged stent within a segment of jejunum in the right upper quadrant 3. Cholelithiasis without evidence of acute cholecystitis 4. Mild mesenteric adenopathy TTE performed on 05/24: Left ventricular ejection fraction 50-55% Right ventricular systolic pressure is normal [id number] tricuspid regurgitation No evidence of interatrial shunt Impression: 1. Serratia bacteremia - though the patient has a very complicated and long intra-abdominal surgical history, CT abdomen pelvis showed no acute pathologies which makes me less concerned about intra-abdominal pathology and more concerned about CLABSI 2. New multiple pulmonary nodules - I cannot determine the significance of these nodules at this point. Gram-negative bacteria is less likely to result in septic emboli and the transthoracic echo is not suggestive of right heart side endocarditis 3. TPN dependent through a right arm PICC line 4. History of Crohn's disease status post colectomy 5. History of perforated bowel and multiple intra-abdominal abscesses with a chronic enterocutaneous fistula 6. Chronic demyelinating gzrvnfwtlvgbti-[id number]-nadmd Recommendations: I agree with IV ceftriaxone 2 g daily for now. I would recommend removing the PICC line. If the PICC line has already been removed and since the repeat blood culture has been negative, I would recommend stepping down to oral Bactrim DS twice daily. If the PICC line has already been removed, he should be okay to get another line tomorrow 05/26/2025. As for the lung nodules, I would consider treating with Bactrim for 2 weeks instead of 1 week. I would not do any further workup for these nodules at this point and consider repeating the CT scan in 4 weeks.
[2025-05-25 12:00] VITALS: TEMP 98.4
[2025-05-25] MEDS: LORazepam 0.5 MG TAB PO STA ×2 (13:01→17:47)
--- NOTE | 2025-05-25 14:33 | Discharge Summary ---
Discharge Summary Date of Service May 25, 2025 Principal Dx & Hospital Course #1 = Principal Diagnosis (1) Sepsis: (2) Enterocutaneous fistula: (3) Acute kidney failure: Plan 34 yo male with pmhx of Crohn's disease status post surgery, history enterocutaneous fistula/abdominal abscesses status post drainage, duodenal perforation status post surgery (2023), esophagitis/esophageal stenosis ongoing TPN nutrition, CIDP as per records, chronic hyponatremia, chronic anemia (baseline hemoglobin of 13), alcohol abuse presenting for sepsis 2/2 presumed line infection. #Sepsis #CLABSI #Serratia Bacteremia #Septic Emboli -hemodynamically stable, feeling much better overall -cultures growin Serratia -unclear source of septic emboli vs. atypical infection, RUE scan did not reveal thrombus Plan: -continue 100cc/hr LR maintenance fluids given bacteremia -stop cefepime, rotate to ceftriaxone given sensitivities -discussed with ID, will remove and replace PICC line after 48 hours of negative cultures -check echo for endocarditis -pulmonary consulted for atypical infection vs. septic emboli, appreciate recs -restart TPN once new catheter placed #Alcohol Use -AWSS trending and medication prn #Opioid Use Disorder, in remission -continue suboxone hx Crohn's disease status post surgery history enterocutaneous fistula/abdominal abscesses status post drainage duodenal perforation status post surgery (2023) esophagitis/esophageal stenosis ongoing TPN nutrition CIDP as per records Acute on chronic anemia, patient without overt bleeding complaints narcotic addiction on Suboxone Chronic hyponatremia Hyperglycemia ro DM ongoing tobacco abuse I spent a total of 50 minutes in direct patient care, including [id number] time with the patient and/or family, reviewing medical records, ordering and reviewing diagnostic tests, and coordinating care with other healthcare providers. This time includes: history taking, physical examination, medical decision making, counseling, ECG interpretation, imaging interpretation, lab interpretation, orders, and education, excluding time spent in the performance of separately billed services. Notes For Next Care Provider 34 yo male with pmhx of Crohn's disease status post surgery, history enterocutaneous fistula/abdominal abscesses status post drainage, duodenal perforation status post surgery (2023), esophagitis/esophageal stenosis ongoing TPN nutrition, CIDP as per records, chronic hyponatremia, chronic anemia (b aseline hemoglobin of 13), alcohol abuse presenting for sepsis 2/2 presumed line infection. On medicine, blood cultures grew Serratia. PICC line pulled and replaced 48 hours after repeat blood cultures came back negative. ID consulted, recommended 14 total days of treatment with bactrim based on sensitivities. Pulmonary consulted for lung nodules of unknown significance, recommended follow up imaging. On 05/25/2025 patient medically stable for discharge home. TPN and home health agency ordered and updated. To do: [ ] f/u CT chest in 4 weeks -Incidental Findings: mesenteric adenopathy, cholelithiasis, atelectasis Medication Changes From Visit -bactrim, nicotine patch Admission HPI Per Admitting Provider History obtained from patient and records. 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 Last confinement June 2023 for ARF and hypotension. Few days history of achy headache and fatigue symptoms. Some nausea, no vomiting. Denies neck pain. No cough, no abdominal pain, no dysuria, no diarrhea symptoms or overt bleeding. Zosyn administered at the ER. Patient comfortable after initial intervention at the ER. Medical History as above Surgical History : Abdominal abscess drainage, ex lap, gastrostomy/suturing of bleeding ulcer, vascular procedures, knee surgeries, total colectomy, hernia repair Family History : DM, stroke, colitis Personal/Social history : 1 pack daily, alcohol abuse as per records, disabled Discharge Exam Gen: A&O 3 NAD HEENT: NCAT, EOMI, not icteric. External ears normal. No rhinorrhea. Moist mucous membranes. Neck: Supple, full range of motion, no observable masses, No meningeal sign. Lungs: No Respiratory distress. CV: RRR, no edema. Abdomen: Soft, nondistended, No rebound tenderness. MSK: No joint swelling, no redness. PICC line removed and replaced Skin: No rashes, petechiae, lesions. Normal color per patient. Neuro: Normal Gait, Grossly intact. Psych: Appropriate for situation. Updated Medication List Medication Instructions Recorded Confirmed Type buprenorphine 8 mg-naloxone 2 mg 2 tab sublingual DAILY 06/22/22 05/21/25 History sublingual tablet tadalafil 5 mg tablet 5 mg PO DAILY PRN Erectile 08/02/22 05/21/25 History Dysfunction gabapentin 300 mg capsule 300 mg PO TID 04/07/23 05/21/25 History lansoprazole 30 mg delayed 30 mg PO AMHS 05/21/25 05/21/25 History release,disintegrating tablet risankizumab-rzaa 360 mg/2.4 mL 360 mg subcut .EVERY 8 WEEKS 05/21/25 05/21/25 History (150 mg/mL) subcut wearable injector (Skyrizi) nicotine 21 mg/24 hr daily 1 patch transdermal HS 14 days #14 05/25/25 Rx transdermal patch (Nicoderm CQ) ea sulfamethoxazole 400 1 tab PO BID 9 days #18 tabs 05/25/25 Rx mg-trimethoprim 80 mg tablet (Bactrim) Hospital Stay Data Consultations 05/21/25 21:05 ED Decision to Admit Stat Diagnostic Imagining Performed 05/21/25 18:04 CT head/brain wo con Stat 05/21/25 19:29 CT Abd and Pelvis [CT abd pelvis IV con only] Stat 05/23/25 14:42 CT chest diagnostic w con Urgent 05/23/25 14:43 CT abd pelvis IV con only Urgent 05/23/25 17:28 US venous doppler UE RT Urgent Pending Results Patient Have Any Pending Studies at Discharge: No Discharge Instructions Given to Patient (Per Discharging Provider) Diagnosis: Serratia bacteremia 2/2 PICC line infection, lung nodules of unknown significance Follow Ups: PCP, home health Incidental Findings: mesenteric adenopathy, cholelithiasis, atelectasis 1. Please follow up with PCP. 2. Please finish course of abx. 3. Please take medications as prescribed, can resume TPN tonight. 4. Please continue good line care to prevent further infections. 5. Please get repeat CT chest in 4 weeks to follow up on lung nodules. Total Time Total Time Spent Total Time Spent (In Minutes): I spent a total of 35 minutes in direct patient care, including [id number] time with the patient and/or family, reviewing medical records, ordering and reviewing diagnostic tests, and coordinating care with other healthcare providers. This time includes: history taking, physical examination, medical decision making, counseling, ECG interpretation, imaging interpretation, lab interpretation, orders, and education, excluding time spent in the performance of separately billed services.
[2025-05-25 15:20] VITALS: BP 118/60; PULSE 81
[2025-05-25] MEDS: KETOROLAC TROMETHAMINE 15 MG/ML VIAL IV PRN (16:10)
--- NOTE | 2025-05-25 18:20 | XRay Report ---
EXAM: X-ray chest one-view portable CLINICAL HISTORY: Left-sided PICC placement PRIORS: Chest radiograph earlier today TECHNIQUE: Frontal view chest FINDINGS: A left-sided PIC catheter is present entering the left internal jugular vein. A right PICC is also present with distal tip in approximately the atrial caval junction. Chest well-expanded. No pneumothorax. Heart size within normal limits. IMPRESSION: Left PIC catheter in the left internal jugular vein requiring repositioning. Electronically signed by Geri Montgomery 05-25-2025 6:20 PM
--- NOTE | 2025-05-25 18:21 | XRay Report ---
EXAM: X-ray chest one-view portable order number [id number] CLINICAL HISTORY: PICC line placement PRIORS: CT 05/23/2025, chest radiograph today earlier TECHNIQUE: Frontal view chest FINDINGS: The left PICC catheter has been repositioned with distal tip in the atriocaval junction appropriately. Right sided PICC is unchanged. Chest is well-expanded. No pneumothorax. Trachea midline. Heart size normal. IMPRESSION: Left PIC catheter with distal tip appropriately at the atriocaval junction, repositioned when compared to earlier. Electronically signed by Geri Montgomery 05-25-2025 6:20 PM
== END 2025-05-25 19:14 | disposition home or self-care (01) | DRG 871 ==
LOC: ED 15:45 → 2N 23:21